=== PATIENT | male | born 1965 | race Caucasian/White ===

== ENCOUNTER 2020-06-06 18:39 | Outpatient (CLI) | payer MEDICAID ==
--- NOTE | 2020-06-06 21:27 | Ultrasound Report ---
PROCEDURE: Duplex Lwr Ext Arterial Bilat INDICATIONS: PERIPHERAL ARTERY DISEASE TECHNIQUE: Color and pulse Doppler interrogation was performed of both lower extremity arterial systems, with im age documentation. COMPARISON: None. FINDINGS: Right lower extremity: Common femoral artery: 250 cm/sec, with monophasic flow. Deep femoral artery: 44 cm/sec, with monophasic flow. Proximal superficial femoral artery: 345 cm/sec, with monophasic flow. Mid superficial femoral artery: 72 cm/sec, with monophasic flow. Distal superficial femoral artery: 49 cm/sec, with monophasic flow. Popliteal artery: 190 cm/sec, with monophasic flow. Posterior tibial artery: 11 cm/sec, with monophasic flow. Anterior tibial artery/dorsalis pedis: Not well seen. Gaming-scale imaging description: Extensive atherosclerotic plaque Left lower extremity: Status post [id number] amputation Common femoral artery: Appears occluded. Deep femoral artery not sonographically visualized Proximal superficial femoral artery not sonographically visualized IMPRESSION: Extensive atherosclerosis throughout the right lower extremity, with high-grade focal stenosis involv ing the right common femoral artery, proximal superficial femoral artery and popliteal artery. Status post left [id number] amputation. The left common femoral artery appears occluded. Reviewed by: Bola Collins MD on 06/06/2020 9:26 PM PDT Approved by: Bola Collins MD on 06/06/2020 9:26 PM PDT Station ID: [id number]
== END 2020-06-06 18:40 | disposition home or self-care (01) ==
LOC: DI 18:39 → EDBD 19:00
PROVIDERS: ATTEND Internal Medicine
DX: I70.201 Unspecified atherosclerosis of native arteries of extremities, right leg (principal); Z89.612 Acquired absence of left leg above knee
CPT/HCPCS: 93925

== ENCOUNTER 2020-06-09 08:00 | Outpatient (CLI) | payer MEDICAID ==
[2020-06-09 18:26] LABS: BASOPHILS # (AUTO) 0.1 10^3/uL (0.0-0.1); BASOPHILS % (AUTO) 0.6 %; EOSINOPHILS # (AUTO) 0.1 10^3/uL (0.0-0.7); EOSINOPHILS % (AUTO) 1.3 %; HCT - HEMATOCRIT 35.5 % (42.0-52.0); HGB - HEMOGLOBIN 10.9 g/dL (14.0-18.0); LYMPHOCYTES # (AUTO) 2.1 10^3/uL (1.5-3.5); LYMPHOCYTES % (AUTO) 20.7 %; MEAN CORPUSCULAR HEMOGLOBIN 25.8 pg (27.0-31.0); MEAN CORPUSCULAR HGB CONC 30.7 g/dL (32.0-36.0); MEAN CORPUSCULAR VOLUME 84.1 fL (80.0-94.0); MEAN PLATELET VOLUME 8.8 fL (7.4-11.4); MONOCYTES # (AUTO) 0.8 10^3/uL (0.0-1.0); MONOCYTES % (AUTO) 7.8 %; NEUTROPHILS # (AUTO) 6.9 10^3/uL (1.5-6.6); NEUTROPHILS % (AUTO) 68.7 %; PLT - PLATELET COUNT 446 10^3/uL (130-450); RED BLOOD COUNT 4.22 10^6/uL (4.70-6.10); RED CELL DISTRIBUTION WIDTH 15.3 % (12.0-15.0); WHITE BLOOD COUNT 10.1 x10^3/uL (4.8-10.8)
[2020-06-09 18:58] LABS: CREATININE,URINE 26.9 mg/dL; MICROALBUM/CREATININE RATIO,UR 11.2 ug/mg (<30.0); MICROALBUMIN,URINE 0.3 mg/dL (0-300.0)
[2020-06-09 19:07] LABS: ALBUMIN 3.4 g/dL (3.2-5.5); ALBUMIN/GLOBULIN RATIO 0.8 (1.0-2.2); ALKALINE PHOSPHATASE 44 IU/L (42-121); ALT ALANINE AMINOTRANSFERASE < 10 IU/L (10-60); AST ASPARTATE AMINOTRANSFERASE 11 IU/L (10-42); BILIRUBIN,TOTAL 0.5 mg/dL (0.2-1.0); BUN - BLOOD UREA NITROGEN 14 mg/dL (6-20); CALCIUM 9.3 mg/dL (8.5-10.3); CARBON DIOXIDE - CO2 25 mmol/L (21-32); CHLORIDE 92 mmol/L (101-111); CHOL/HDL RATIO 2.9 (<5.0); CHOLESTEROL 132 mg/dL; CREATININE 0.7 mg/dL (0.6-1.2); GFR - MDRD 116 (>89); GLUCOSE 109 mg/dL (70-100); HDL CHOLESTEROL 45 mg/dL; LDL CHOLESTEROL,CALCULATED 76 mg/dL; LDL/HDL RATIO 1.7 (<3.6); POTASSIUM 4.5 mmol/L (3.5-5.0); SODIUM 127 mmol/L (135-145); THYROID STIMULATING HORMONE 2.14 uIU/mL (0.34-5.60); TOTAL PROTEIN 7.9 g/dL (6.7-8.2); TRIGLYCERIDES 56 mg/dL; VLDL CHOLESTEROL 11 mg/dL
[2020-06-09 20:24] LABS: ESTIMATED AVERAGE GLUCOSE 126 mg/dL (70-100)
== END 2020-06-09 23:59 | disposition home or self-care (01) ==
LOC: LAB.WCP 08:00
PROVIDERS: ATTEND Internal Medicine
DX: I10 Essential (primary) hypertension (principal); I73.9 Peripheral vascular disease, unspecified; Z12.5 Encounter for screening for malignant neoplasm of prostate; R60.9 Edema, unspecified
CPT/HCPCS: 36415; 80053; 80061; 82043; 82570; 83036; 83721; 84153; 84443; 85025

== ENCOUNTER 2020-07-08 11:29 | Outpatient (CLI) | payer MEDICAID ==
[2020-07-08 18:19] LABS: ABSOLUTE RETICS # AUTO 0.083 10^6/uL (0.020-0.110); RED BLOOD COUNT 4.49 10^6/uL (4.70-6.10); RETICULOCYTE COUNT % (AUTO) 1.85 % (0.5-2.3)
[2020-07-08 18:55] LABS: % IRON SATURATION 8 % (20-50); IRON 21 ug/dL (45-182); TOTAL IRON BINDING CAPACITY 262 ug/dL (250-450); TRANSFERRIN 187 mg/dL (180-329)
== END 2020-07-08 23:59 | disposition home or self-care (01) ==
LOC: LAB.WCP 11:29
PROVIDERS: ATTEND Internal Medicine
DX: D64.9 Anemia, unspecified (principal); E87.1 Hypo-osmolality and hyponatremia
CPT/HCPCS: 36415; 82607; 82728; 83540; 83930; 83935; 84300; 84466; 85045

== ENCOUNTER 2020-09-01 16:28 | Inpatient (IN) | payer OTHER, MEDICAID ==
--- NOTE | 2020-09-01 17:10 | XRAY Report ---
PROCEDURE: Foot 3 View RT INDICATIONS: RLE swelling, infection TECHNIQUE: 3 views of the foot were acquired. COMPARISON: None FINDINGS: Bones: No acute fractures or dislocations. Moderate degenerative changes of the tibiotalar joint. N o evidence for osseous erosions or cortical destruction. No suspicious periosteal reaction. No suspic ious bony lesions. Soft tissues: No tibiotalar joint effusion. Achilles tendon appears normal. Moderate soft tissue sw elling of the right foot most pronounced in the forefoot. No evidence for soft tissue gas. IMPRESSION: Moderate soft tissue swelling of the right foot without underlying osseous erosions or periosteal roselyn ction. No acute fracture or dislocation. Moderate degenerative changes of the right tibiotalar joint. If there is persistent high clinical concern for osteomyelitis, further evaluation with MRI can be co nsidered. Reviewed by: Sami Mcintosh MD on 09/01/2020 5:09 PM PDT Approved by: Sami Mcintosh MD on 09/01/2020 5:09 PM PDT Station ID: [id number]
[2020-09-01] MEDS ORDERED: VANCOMYCIN INJ 2 GM in SODIUM CHLORIDE 0.9% 500 ML IV STA (17:11)
[2020-09-01] MEDS ORDERED: PIPERACILLIN/TAZOBACTAM 3.375 GM in SODIUM CHLORIDE 0.9% MINIBAG 100 ML IV STA (17:11)
--- NOTE | 2020-09-01 17:11 | ED Physician Documentation ---
History of Present Illness - Stated complaint Stated Complaint: RT LEG INFECTION - Chief complaint Chief Complaint: Ext Problem - History obtained from History obtained from: Patient - History of Present Illness Timing: Today Pain level max: 7 Pain level now: 5 - Additonal information Additional information: Patient is a 55-year-old male who was sent over from the wound care clinic today for infection of the right lower extremity. Concern for need for possible amputation. Patient states that his leg is painful. He denies any fevers. He states he has not had chills. Nothing makes it better or worse. He states he is not currently on antibiotics. Review of Systems Ten Systems: 10 systems reviewed and negative Constitutional: denies: Fever, Chills GI: denies: Nausea, Vomiting, Diarrhea Skin: denies: Rash Musculoskeletal: denies: Neck pain, Back pain Neurologic: denies: Headache PD PAST MEDICAL HISTORY - Past Medical History Cardiovascular: Hypertension, High cholesterol, Peripheral Vascular Disease Respiratory: Sleep apnea Endocrine/Autoimmune: None GI: Other Musculoskeletal: Chronic back pain - Past Surgical History Ortho: Amputation - Present Medications Home Medications: Ambulatory Orders Medication Instructions Recorded Confirmed Atorvastatin Calcium 1 tab ORAL DAILY PM 08/25/20 09/01/20 Losartan Potassium [Cozaar] 1 tablet PO DAILY 08/25/20 09/01/20 Qc Tumeric Complex 500 mg ORAL DAILY 08/25/20 09/01/20 Silver Sulfadiazine [Silvadene] 1 % TOP BID 08/25/20 09/01/20 cilostazoL [Cilostazol] 1 tab PO BID 08/25/20 09/01/20 Aspirin [Silvana Aspirin] 81 mg PO DAILY 09/01/20 09/01/20 Carvedilol [Coreg] 25 mg PO DAILY 09/01/20 09/01/20 Clopidogrel [Plavix] 75 mg PO DAILY PM 09/01/20 09/01/20 - Allergies Allergies/Adverse Reactions: Allergies Allergy/AdvReac Type Severity Reaction Status Date / Time No Known Drug Allergies Allergy Verified 09/01/20 16:42 PD ED PE NORMAL - Vitals Vital signs reviewed: Yes - General General: Alert and oriented X 3, No acute distress - HEENT HEENT: Moist mucous membranes - Neck Neck: Supple, no meningeal sign - Cardiac Cardiac: RRR, Strong equal pulses - Respiratory Respiratory: No respiratory distress, Clear bilaterally - Abdomen Abdomen: Soft, Non tender, Non distended - Derm Derm: Warm and dry - Extremities Extremities: Other (Left leg AKA. Right leg has a gangrenous external appearance. Foul drainage.) - Neuro Neuro: Alert and oriented X 3 - Psych Psych: Normal mood, Normal affect Results - Vitals Vitals: Vital Signs - 24 hr 09/01/20 09/01/20 16:37 18:39 Temperature 36.3 C L 36.5 C Heart Rate 93 79 Respiratory 16 16 Rate Blood Pressure 155/79 H 156/89 H O2 Saturation 100 98 Oxygen O2 Source Room air - Labs Labs: Laboratory Tests 09/01/20 09/01/20 09/01/20 17:20 17:36 17:36 WBC 15.8 H RBC 4.08 L Hgb 10.2 L Hct 31.9 L MCV 78.2 L MCH 25.0 L MCHC 32.0 RDW 15.0 Plt Count 528 H MPV 8.1 Neut # (Auto) 13.1 H Lymph # (Auto) 1.4 L Cooper # (Auto) 1.0 Eos # (Auto) 0.1 Baso # (Auto) 0.1 Absolute Nucleated RBC 0.00 Nucleated RBC % 0.0 ESR PT 15.8 H INR 1.5 H APTT 30.3 Sodium Potassium Chloride Carbon Dioxide Anion Gap BUN Creatinine Estimated GFR (MDRD) Glucose Lactic Acid Calcium Iron TIBC % Saturation Transferrin Ferritin Total Bilirubin AST ALT Alkaline Phosphatase C-Reactive Protein Total Protein Albumin Globulin Albumin/Globulin Ratio Lipase Urine Color YELLOW Urine Clarity CLEAR Urine pH 7.5 Ur Specific [place] 1.015 Urine Protein NEGATIVE Urine Glucose (UA) NEGATIVE Urine Ketones NEGATIVE Urine Occult Blood NEGATIVE Urine Nitrite NEGATIVE Urine Bilirubin NEGATIVE Urine Urobilinogen 0.2 (NORMAL) Ur Leukocyte Esterase NEGATIVE Ur Microscopic Review NOT INDICATED Urine Culture Comments NOT INDICATED 09/01/20 09/01/20 09/01/20 17:36 17:36 17:36 WBC RBC Hgb Hct MCV MCH MCHC RDW Plt Count MPV Neut # (Auto) Lymph # (Auto) Cooper # (Auto) Eos # (Auto) Baso # (Auto) Absolute Nucleated RBC Nucleated RBC % ESR 110 H PT INR APTT Sodium 121 L Potassium 3.8 Chloride 84 L Carbon Dioxide 24 Anion Gap 13.0 BUN < 5 L Creatinine 0.6 Estimated GFR (MDRD) 139 Glucose 107 H Lactic Acid 0.8 Calcium 8.4 L Iron TIBC % Saturation Transferrin Ferritin Total Bilirubin 0.5 AST 24 ALT 24 Alkaline Phosphatase 96 C-Reactive Protein 19.5 H Total Protein 7.6 Albumin 2.7 L Globulin 4.9 H Albumin/Globulin Ratio 0.6 L Lipase 53 H Urine Color Urine Clarity Urine pH Ur Specific [place] Urine Protein Urine Glucose (UA) Urine Ketones Urine Occult Blood Urine Nitrite Urine Bilirubin Urine Urobilinogen Ur Leukocyte Esterase Ur Microscopic Review Urine Culture Comments 09/01/20 09/01/20 17:36 17:36 WBC RBC Hgb Hct MCV MCH MCHC RDW Plt Count MPV Neut # (Auto) Lymph # (Auto) Cooper # (Auto) Eos # (Auto) Baso # (Auto) Absolute Nucleated RBC Nucleated RBC % ESR PT INR APTT Sodium Potassium Chloride Carbon Dioxide Anion Gap BUN Creatinine Estimated GFR (MDRD) Glucose Lactic Acid Calcium Iron 20 L TIBC 192 L % Saturation 10 L Transferrin 137 L Ferritin 255.4 Total Bilirubin AST ALT Alkaline Phosphatase C-Reactive Protein Total Protein Albumin Globulin Albumin/Globulin Ratio Lipase Urine Color Urine Clarity Urine pH Ur Specific [place] Urine Protein Urine Glucose (UA) Urine Ketones Urine Occult Blood Urine Nitrite Urine Bilirubin Urine Urobilinogen Ur Leukocyte Esterase Ur Microscopic Review Urine Culture Comments - Rads (name of study) R tib fib xray Radiology: Prelim report reviewed, EMP read contemporaneously, See rad report R foot xray Radiology: Prelim report reviewed, EMP read contemporaneously, See rad report PD MEDICAL DECISION MAKING - ED course Complexity details: reviewed results, re-evaluated patient, considered differential, d/w patient, d/w trousseau consultant ED course: 55-year-old male with what appears to be a gangrenous right leg. Started on IV antibiotics. Discussed with Dr. Flood, hospitalist who accepts. He discussed the case with orthopedics. This document was made in part using voice recognition software. While efforts are made to proofread this document, sound alike and grammatical errors may occur. IMPRESSION: Moderate soft tissue swelling of the right lower leg and right foot without evidence for soft tissue gas. Suggestion of possible cortical erosion/destruction of the plantar aspect of the distal right fifth metatarsal seen only on the lateral view. This was not appreciated on comparison radiographs of the foot from earlier today. Recommend correlation with clinical examination as this may represent possible osteomyelitis. Consider further evaluation with MRI. Moderate degenerative changes of the right tibiotalar joint. IMPRESSION: Moderate soft tissue swelling of the right foot without underlying osseous erosions or periosteal reaction. No acute fracture or dislocation. Moderate degenerative changes of the right tibiotalar joint. If there is persistent high clinical concern for osteomyelitis, further evaluation with MRI can be considered. Departure - Departure Disposition: [facility] DC/Xfer Clinical Impression: Gangrene of right lower extremity due to atherosclerosis Cellulitis Qualifiers: Site of cellulitis: unspecified site Qualified Code(s): L03.90 - Cellulitis, unspecified Condition: Stable Discharge Date/Time: 09/01/20 19:42
--- NOTE | 2020-09-01 17:14 | XRAY Report ---
PROCEDURE: Tib/Fib RT INDICATIONS: RLE swelling, infection TECHNIQUE: 2 views of the tibia and fibula were acquired. COMPARISON: Right foot radiographic series from same day FINDINGS: Bones: Moderate soft tissue swelling of the right lower leg. Moderate degenerative changes of the ti biotalar joint. On the lateral view only, there is suggestion of cortical erosion or destruction invo lving the plantar aspect of the distal right fifth metatarsal. This was not appreciated on comparison radiograph. Otherwise, no acute fractures or dislocations. No suspicious bony lesions. Soft tissues: No suspicious soft tissue calcifications or masses. Moderate soft tissue swelling of t ced right foot and right lower leg. No evidence for soft tissue gas. IMPRESSION: Moderate soft tissue swelling of the right lower leg and right foot without evidence for soft tissue gas. Suggestion of possible cortical erosion/destruction of the plantar aspect of the distal right fi fth metatarsal seen only on the lateral view. This was not appreciated on comparison radiographs of heather coughlin foot from earlier today. Recommend correlation with clinical examination as this may represent pos sible osteomyelitis. Consider further evaluation with MRI. Moderate degenerative changes of the right tibiotalar joint. Reviewed by: Sami Mcintosh MD on 09/01/2020 5:12 PM PDT Approved by: Sami Mcintosh MD on 09/01/2020 5:12 PM PDT Station ID: [id number]
[2020-09-01 17:30] LABS: BILIRUBIN,URINE NEGATIVE (NEGATIVE); GLUCOSE, URINE (UA) NEGATIVE (NEGATIVE); KETONES,URINE (UA) NEGATIVE (NEGATIVE); LEUKOCYTE ESTERASE, URINE NEGATIVE (NEGATIVE); NITRITE,URINE NEGATIVE (NEGATIVE); OCCULT BLOOD,URINE NEGATIVE (NEGATIVE); PH,URINE 7.5 PH (5.0-7.5); PROTEIN,URINE NEGATIVE (NEGATIVE); UROBILINOGEN,URINE 0.2 (NORMAL) E.U./dL (NORMAL)
[2020-09-01 17:34] LABS: CLARITY,URINE CLEAR (CLEAR)
[2020-09-01 17:48] LABS: BASOPHILS # (AUTO) 0.1 10^3/uL (0.0-0.1); BASOPHILS % (AUTO) 0.3 %; EOSINOPHILS # (AUTO) 0.1 10^3/uL (0.0-0.7); EOSINOPHILS % (AUTO) 0.3 %; HCT - HEMATOCRIT 31.9 % (42.0-52.0); HGB - HEMOGLOBIN 10.2 g/dL (14.0-18.0); LYMPHOCYTES # (AUTO) 1.4 10^3/uL (1.5-3.5); MEAN CORPUSCULAR VOLUME 78.2 fL (80.0-94.0); MEAN PLATELET VOLUME 8.1 fL (7.4-11.4); MONOCYTES % (AUTO) 6.4 %; NEUTROPHILS # (AUTO) 13.1 10^3/uL (1.5-6.6); NEUTROPHILS % (AUTO) 82.9 %; PLT - PLATELET COUNT 528 10^3/uL (130-450); RED BLOOD COUNT 4.08 10^6/uL (4.70-6.10); WHITE BLOOD COUNT 15.8 x10^3/uL (4.8-10.8)
[2020-09-01 17:52] LABS: INR 1.5 (0.8-1.2); PT - PROTHROMBIN TIME 15.8 secs (9.9-12.6)
[2020-09-01 17:59] LABS: PARTIAL THROMBOPLASTIN TIME 30.3 secs (24.9-33.3)
[2020-09-01 18:06] LABS: ALBUMIN 2.7 g/dL (3.2-5.5); ALBUMIN/GLOBULIN RATIO 0.6 (1.0-2.2); ALKALINE PHOSPHATASE 96 IU/L (42-121); ALT ALANINE AMINOTRANSFERASE 24 IU/L (10-60); AST ASPARTATE AMINOTRANSFERASE 24 IU/L (10-42); BILIRUBIN,TOTAL 0.5 mg/dL (0.2-1.0); BUN - BLOOD UREA NITROGEN < 5 mg/dL (6-20); CALCIUM 8.4 mg/dL (8.5-10.3); CARBON DIOXIDE - CO2 24 mmol/L (21-32); CHLORIDE 84 mmol/L (101-111); CREATININE 0.6 mg/dL (0.6-1.2); CRP - C-REACTIVE PROTEIN 19.5 mg/dL (0-1.0); GFR - MDRD 139 (>89); GLUCOSE 107 mg/dL (70-100); LIPASE 53 U/L (22-51); POTASSIUM 3.8 mmol/L (3.5-5.0); SODIUM 121 mmol/L (135-145); TOTAL PROTEIN 7.6 g/dL (6.7-8.2)
[2020-09-01] MEDS ORDERED: ONDANSETRON ODT 4 MG TABLET TL PRN (18:51)
[2020-09-01] MEDS ORDERED: ONDANSETRON 4 MG/2 ML VIAL IVP PRN (18:51)
--- NOTE | 2020-09-01 19:47 | CONSULTATION NOTE ---
Referring Provider Name of Referring Provider:: Dr. Aleena Vazquez Consult Date: 09/01/20 History of Present Illness - Admitted From Admitted From:: emergency room - History Obtained From Records Reviewed: yes History obtained from: patient Exam Limitations: none - History of Present Illness HPI Comment/Other: This is a 55-year-old gentleman with a 40-year pack cigarette smoking history who underwent a left above-knee amputation little over a year ago at [facility]. He has had problems healing his left above-knee amputation stump and has never been a prosthetic user. He has been nonambulatory in wheelchair since his left above-knee amputation. Over the past several weeks he has developed progressive problems with his right lower leg. He is seen vascular surgeons and has not been felt to be a candidate for revascularization. He has been undergoing wound care without success and has had gangrene to the right lower extremity. He is being admitted now because of the gangrene and some symptoms of infection developing to the right lower extremity. He is not a diabetic, denies heart attack, stroke or pulmonary embolism. He denies cancer. He lives at home with and is wheelchair-bound. He has continued wound healing problems to his left above-knee amputation stump. He denies fever or chills, chest pain or shortness of breath. History - Past Medical History Cardiovascular: reports: Hypertension, High cholesterol, Peripheral Vascular Disease Respiratory: reports: Sleep apnea Endocrine/Autoimmune: reports: None GI: reports: Other Musculoskeletal: reports: Chronic back pain - Past Surgical History Ortho: reports: Amputation - Family & Social History Living Situation: With spouse/s.o. Social History Notes: hx of tobacco and alcohol use disorders, currently abstinent - Substance History Use: Uses substance without health or social issues: Cannabis Meds/Allgy - Home Medications Home Medications: Ambulatory Orders Medication Instructions Recorded Confirmed Atorvastatin Calcium 1 tab ORAL DAILY PM 08/25/20 09/01/20 Losartan Potassium [Cozaar] 1 tablet PO DAILY 08/25/20 09/01/20 Qc Tumeric Complex 500 mg ORAL DAILY 08/25/20 09/01/20 Silver Sulfadiazine [Silvadene] 1 % TOP BID 08/25/20 09/01/20 cilostazoL [Cilostazol] 1 tab PO BID 08/25/20 09/01/20 Aspirin [[place]ena Aspirin] 81 mg PO DAILY 09/01/20 09/01/20 Carvedilol [Coreg] 25 mg PO DAILY 09/01/20 09/01/20 Clopidogrel [Plavix] 75 mg PO DAILY PM 09/01/20 09/01/20 - Allergies Allergies/Adverse Reactions: Allergies Allergy/AdvReac Type Severity Reaction Status Date / Time No Known Drug Allergies Allergy Verified 09/01/20 16:42 Exam - Vital Signs Vital Signs: Vital Signs x48h Temp Pulse Resp BP Pulse Ox 09/01/20 18:39 36.5 C 79 16 156/89 H 98 09/01/20 16:37 36.3 C L 93 16 155/79 H 100 - Physical Exam General Appearance: positive: No acute distress. negative: Other (Appears older than stated age) Peripheral Pulses: negative: Other (Unable to obtain pulses right foot, ankle and markedly diminished pulses popliteal at best) Extremities: positive: Other. negative: Joint swelling (He has a 20 degree flexion contracture right knee) Conclusion and Plan - Lab Results Laboratory Results 09/01/20 17:36: ESR 110 H 09/01/20 17:36: Lactic Acid 0.8 09/01/20 17:36: Sodium 121 L, Potassium 3.8, Chloride 84 L, Carbon Dioxide 24, Anion Gap 13.0, BUN < 5 L, Creatinine 0.6, Estimated GFR (MDRD) 139, Glucose 107 H, Calcium 8.4 L, Total Bilirubin 0.5, AST 24, ALT 24, Alkaline Phosphatase 96, C-Reactive Protein 19.5 H, Total Protein 7.6, Albumin 2.7 L, Globulin 4.9 H, Albumin/Globulin Ratio 0.6 L, Lipase 53 H 09/01/20 17:36: PT 15.8 H, INR 1.5 H, APTT 30.3 09/01/20 17:36: WBC 15.8 H, RBC 4.08 L, Hgb 10.2 L, Hct 31.9 L, MCV 78.2 L, MCH 25.0 L, MCHC 32.0, RDW 15.0, Plt Count 528 H, MPV 8.1, Neut # (Auto) 13.1 H, Lymph # (Auto) 1.4 L, Armstrong # (Auto) 1.0, Eos # (Auto) 0.1, Baso # (Auto) 0.1, Absolute Nucleated RBC 0.00, Nucleated RBC % 0.0 09/01/20 17:20: Urine Color YELLOW, Urine Clarity CLEAR, Urine pH 7.5, Ur Specific [place] 1.015, Urine Protein NEGATIVE, Urine Glucose (UA) NEGATIVE, Urine Ketones NEGATIVE, Urine Occult Blood NEGATIVE, Urine Nitrite NEGATIVE, Urine Bilirubin NEGATIVE, Urine Urobilinogen 0.2 (NORMAL), Ur Leukocyte Esterase NEGATIVE, Ur Microscopic Review NOT INDICATED, Urine Culture Comments NOT INDICATED - Diagnostic Imaging Results Diagnostic Imaging Results: negative: Read independently (Routine radiographs of the right leg do not show a definite bone or joint abnormality.), Other (Arterial duplex from 06/06/2020 shows extensive occlusive disease throughout the right lower extremity including common femoral, superficial femoral and popliteal artery.) - Diagnosis Diagnosis: 1. Gangrene right lower extremity. 2. Severe peripheral vascular d isease. 3. Status post left above-knee amputation with chronic ulceration of skin to stump. 4. Chronic anemia, hyponatremia, likely poor nutrition - Plan Plan: He needs to be evaluated by her medical record technician. He has a severe problem and will likely require above-knee amputation. He is a nonambulator, has a flexion contracture to right knee and has severe arterial vascular occlusive disease. He has had vascular surgery consultation and wound care; all efforts for right lower leg salvage have failed and now he has severe gangrene to the right lower extremity. His comorbidities and prognosis is poor; mortality rate high over the next 2 years. He will not be able to be an ambulator and will be wheelchair-bound if he has his amputation as anticipated, right above-knee amputation. He is in agreement to this plan at this time.
[2020-09-01 19:51] LABS: % IRON SATURATION 10 % (20-50); IRON 20 ug/dL (45-182); TOTAL IRON BINDING CAPACITY 192 ug/dL (250-450); TRANSFERRIN 137 mg/dL (180-329)
--- NOTE | 2020-09-01 19:55 | HISTORY & PHYSICAL EXAMINATION ---
Chief Complaint - Chief Complaint Chief Complaint: gangrenous right leg in [facility] History of Present Illness - Admitted From Admitted From:: Home via [facility] - History Obtained From Records Reviewed: [facility] History obtained from: Dr. Flood and patient Exam Limitations: patient's memory - History of Present Illness HPI Comment/Other: This unfortunate gentleman has a history of peripheral vascular disease and has already undergone an [id number] amputation on the left leg in April 2019. In review of his records, he had already developed chronic lymphedema of the legs by 2009 complicated by venous stasis and chronic leg ulcers. And then he had a superficial temporary right foot wound when he was moving a refrigerator and dropped it on his foot. He was then lost to follow-up with his primary care provider locally between 2009 and 2018 when he returned back to the [facility]. In 2018 he returned on March 12 with a painful, swollen left ryder/calf of 2 weeks duration and had already been seen at [facility] with admit and discharge by March 09 after admit February 26. He had been moving furniture and he struck his ryder on a piece of furniture and subsequently developed large blisters with redness and pain. With that examination that day the foot was gangrenous. Cultures without stay were positive for MSSA and Enterococcus faecalis.He underwent arterial Dopplers, venous Dopplers. Aortogram was done and he had stenosis of both femorals with a stent placement within the left mid superficial femoral artery March 10, 2019. He had stenosis of the SFA on the left. No signs of osteomyelitis in the bone of his foot or tibia. He was seen by director of housing and energy services Quyen Quispe at [facility]. Revascularization attempt was recommended. During that stay, he was found to have history of pa ncreatitis due to alcohol abuse. And also had a pancreatic head mass that they were trying to get evaluated at the same time they were trying to take care of his vascular disease of his leg.He had severe leg pain. At the [place] [facility] he been treated with oxycodone, morphine, and he was requesting fentanyl. His primary care provider was attempting to establish him with a chronic pain clinic for that pain management. Unfortunately he had difficulty accessing health care because of the multiple authorizations required between [facility] and the [place] system. He developed gangrene and osteomyelitis of the third and fourth toe and underwent a transmetatarsal amputation and a left anterior leg debridement April 17. Cultures were positive for MSSA. He was discharged April 27 and was on antibiotics for 13 days. Then discharged on Augmentin and a wound VAC placed. However he continued to progress with his infection. He was resent back to the emergency room at [facility] May 04 because his director of housing and energy services felt that his infection was out of control.He was admitted and eventually underwent an AKA on May 07. He was continued on Flagyl and that was stopped May 14. He was on IV cefazolin until discharge and switched to oral Ceftin which was stopped May 20. Postoperatively he has been relatively sedentary. The stump has not healed. He has been unable to be fitted for an orthotic due to inability to get appt and transportation issues. Somewhere in May he hit his right ryder against a box when he was using his wheelchair to turn around in the room. He developed persistent right ryder wound. He has been referred to the wound clinic in May but by June still had not been able to get an appointment because he could not access the schedulers. He did have an appointment with vascular surgery in [facility] in the first part of July to be reassessed for his vascular disease. He had follow-up ultrasound duplex arterial of the lower extremities and it showed that his regions where his prior stenting was done were failing. He was seen by Dr. Benitez Who recommended a right AKA. But the patient did not wish to have another amputation. He was seen in our wound clinic on August 25. His ischemic ulcer was debrided. Dressed. And asked to return in a week. He returned today. His wound has markedly worsened. Photos are in the EMR to document the spread of gangrene. He was sent to the emergency room for evaluation and he has an infection, surrounding cellulitis, but no sepsis. He was seen by orthopedics. The extent of the wound is so severe that the patient is now a candidate for another [id number] amputation on the right leg at this time. From a cardiovascular perspective he has no history of AL, congestive heart failure. He was a former smoker, current hyperlipidemic. No history of diabetes. He is hypertensive. He is a relatively sedentary person so there is no ability to assess any change in cardiovascular endurance from him. He denies chest pain, palpitations, orthopnea. He denies having any lung or heart problems. He wakes up several times a night but can't say why, Exhausted for the last year. Cough is new today, nonproductive and feels like there is phlegm there that can't come up. He has been seen by Dr. Liu, orthopedics. The patient currently has hyponatremia, cellulitis/infection of the leg. He would like preoperative improvement of the patient's status before taking him to the OR.The hyponatremia is not new. When he was hospitalized at [facility] in February, the hyponatremia have been present for a year and was related to have been between 126-132. He is a previous alcohol abuser. Has been clean and sober for approximately 5 years but then he says 10 years. .He stopped smoking somewhere in March of this year. He denies cirrhosis but states he has fatty liver. History - Past Medical History Cardiovascular: reports: Hypertension, High cholesterol, Peripheral Vascular Disease (High-grade left external iliac stenosis resolved after stent placement and angioplasty. High-grade stenosis left common and proximal superficial femoral artery following angioplasty. High-grade multifocal right-sided outflow stenosis. Patient on Plavix.), Other (Chronic hyponatremia last year of 126- 132. No history of cirrhosis in spite of alcohol abuse. No history of congestive heart failure. Serum osmolality was done at [facility] with amputation admission. Unknown results. Recent osm 265 07/08/20.) Respiratory: reports: Sleep apnea (Diagnosed approximately 1997, prescribed a CPAP but never followed through. He refuses) Neuro: reports: Head injury (2000 Hit on left forehead with a heavy crab pot, started bleeding, no loss of consciousness. Started vomiting. Did not seek medical attention. Vomited off and on for a month. Thinking has been fuzzy since that injury. Subsequent cognitive and behavioral changes.), Headaches (Since childhood. Headaches changed after TBI. Also has history of tension he adaches. Desipramine previously helped.) Endocrine/Autoimmune: reports: Other (Low Vitamin D) GI: reports: Pancreatitis (Pancreatic head mass since 2016 at the [place]. Between 2016 and 2019, pancreatic duct dilatation developing, CA 19 9 level normal but highly suspicious for pancreatic carcinoma. To have endoscopic ultrasound and fine-needle aspiration biopsy but he has decided not to), Other (Abnormal liver enzymes. Hepatitis panel negative in 2001.) HEENT: reports: Chronic vision loss Psych: reports: Depression (Or dysthymia.Has been tried on imipramine, desipramine, fluoxetine, paroxetine, citalopram, bupropion. Stopped after head injury. 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 Thoracic compression fracture. Was on low-dose morphine off and on.) MRSA Hx?: No - Past Surgical History Ortho: reports: Amputation Cardiovascular: reports: Angioplasty HEENT: reports: Other (Infected teeth with extractions) - Family & Social History Family History Comment/Other: Mother: HTN, CVA in 70s. Father: healthy. Half siblings: one sister w kidney stones. Daughter w spina bifida and one lung. Smoker, substance abuser?, had pneumonia and refused trach. Left AMA and at home. Son is healthy and lives in [facility] [place] Living arrangement: At home Living Situation: With spouse/s.o. Social History Notes: hx of tobacco and alcohol use disorders, currently abstinent. Started smoking in 1977 and smoked 1 pack/day. Quit 03/2020. 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 [place] since leaving the [employer] 1995. and lives in [place]. Had 2 children but daughter last year and now has 13 yr old granddaughter living with them - Substance History Use: Uses substance without health or social issues: Cannabis Abuse: Recurrent use of substance despite neg consequences: NONE - POLST Patient has POLST: No POLST Status: Full Code Meds/Allgy - Home Medications Home Medications: Ambulatory Orders Medication Instructions Recorded Confirmed Atorvastatin Calcium 1 tab ORAL DAILY PM 08/25/20 09/01/20 Losartan Potassium [Cozaar] 1 tablet PO DAILY 08/25/20 09/01/20 Qc Tumeric Complex 500 mg ORAL DAILY 08/25/20 09/01/20 Silver Sulfadiazine [Silvadene] 1 % TOP BID 08/25/20 09/01/20 cilostazoL [Cilostazol] 1 tab PO BID 08/25/20 09/01/20 Aspirin [[place] Aspirin] 81 mg PO DAILY 09/01/20 09/01/20 Carvedilol [Coreg] 25 mg PO DAILY 09/01/20 09/01/20 Clopidogrel [Plavix] 75 mg PO DAILY PM 09/01/20 09/01/20 - Allergies Allergies/Adverse Reactions: Allergies Allergy/AdvReac Type Severity Reaction Status Date / Time No Known Drug Allergies Allergy Verified 09/01/20 16:42 Review of Systems - Constitutional Constitutional: reports: Fatigue, Night sweats (since ~1990). denies: Fever, Chills - Eyes Eyes: reports: Blurred vision. denies: Pain, Irritation, Amaurosis - Ears, Nose & Throat Ears, Nose & Throat: reports: Tinnitus, Nasal congestion. denies: Ear pain, Hearing loss, Hearing aids, Vertigo, Nosebleeds, Nasal obstruction, Sore throat, Hoarseness - Cardiovascular Cariovascular: reports: Chest pain (w exertion for years and years but since he's sedentary now, no cp), Edema (of legs for years. current right leg very large and tense). denies: Irregular heart rate, Palpitations, Lightheadedness, Syncope - Respiratory Respiratory: reports: Cough (today), Snoring, Apnea. denies: Sputum production, Wheezing - Gastrointestinal Gastrointestinal: reports: Constipation (new for the last year), Bloating. denies: Abdominal pain, Abdominal distention, Diarrhea, Black stools, Bloody stools, Nausea, Vomiting, Reflux/heartburn - Genitourinary Genitourinary: reports: Nocturia (x3). denies: Dysuria, Frequency, Urgency, Hematuria, Incontinence - Musculoskeletal Musculoskeletal: reports: Back pain, Muscle aches, Other (he is amazed his right leg isn't hurting more). denies: Muscle pain, Joint pain - Integumentary Integumentary: reports: Rash (on right leg that is black and spreading). denies: Pruritis, Lesions, Dryness - Neurological Neurological: reports: General weakness, Headache, Numbness (both hands off and on), Memory problems (with chronic microvascular ischemia on MRIs in the past, worse w TBI). denies: Focal weakness, Dizziness - Psychiatric Psychiatric: reports: Depression. denies: Anxiety, Suicidal, Delusions, Hallucinations - Endocrine Endocrine: reports: Intolerance to cold. denies: Polyuria, Polydypsia, Polyphagia - Hematologic/Lymphatic Hematologic/Lymphatic: reports: Anemia, Bruising. denies: Petechiae, Blood clots, Lymphadenopathy Prior Level of Functionality: Cognitive deficits this is a head injury in 2000. Short-term memory problems. Independent with ADLs and finances until his AKA. Now more wheelchair-bound or bedbound. Exam - Vital Signs Reviewed Vital Signs: Yes Vital Signs: Vital Signs x48h Temp Pulse Resp BP Pulse Ox 09/01/20 18:39 36.5 C 79 16 156/89 H 98 09/01/20 16:37 36.3 C L 93 16 155/79 H 100 - Physical Exam General Appearance: positive: No acute distress, Alert, Other (Very pale/grayish discoloration of face, long hair, very uncomfortable. Sitting upright in chair because uncomfortable in bed) Eyes Bilateral: positive: PERRL, EOMI ENT: positive: No signs of dehydration, Other (poor poor dentition) Neck: positive: No JVD, Lymphadenopathy (R), Lymphadenopathy (L). negative: Stiff neck Respiratory: positive: No respiratory distress. negative: Wheezes, Rales, Rhonchi Cardiovascular: positive: Regular rate & rhythm, Systolic murmur. negative: Gallop/S4, Friction rub Peripheral Pulses: positive: 0 Abdomen: positive: Non-tender, No organomegaly, Nml bowel sounds, No distention Skin: positive: Pallor, Other (right leg pictures show black skin, oozing from just below knee to feet and toes gangrenous) Extremities: positive: Other (infection of right leg, edema 3+ from thigh down. 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 Plan: Ortho consult AKA planned for 09/05 after his sodium and infection stabilized. Zosyn given in the ER and he has been started on cefepime and vancomycin. pain management Start process of PT and assessing where is placement will be after the surgery. He thinks he has the UE strength to return to home (2) PAD (peripheral artery disease) Conclusion/Plan: will need to get records from Vascular surgeon at [facility] to see what interventions offered. In any case he is to get AKA. Since his previous right stump isn't healed concerned about healing. Will hold of on plavix and change to lovenox to bridge until the night before surgery (3) Hyponatremia Conclusion/Plan: Urine osmolality on July 08 was 211 (range [id number]). Serum osmolality was 265 (low). (4) Chronic pain Conclusion/Plan: With history of opioid tolerance, misuse through the [place] system. This current outpatient clinic has not been providing him with opioids. Has referred him to an outpatient pain clinic but has not been able to follow through. His current medication list does not list any chronic pain meds. He states that methadone makes him more depressed. Plan: He is about to undergo an amputation, and he will need intermittent pain meds. Would recommend scheduled dose of Tylenol in the postoperative setting. Also scheduled dose of nonsteroidal in the postoperative setting. And scheduled dose of oxycodone at least for 48 hours to get him through the immediate pain. Also give stool softeners on a regular basis to avoid constipation. Qualifiers: Chronic pain type: chronic pain syndrome Qualified Code(s): G89.4 - Chronic pain syndrome (5) HTN (hypertension) Conclusion/Plan: rsume coreg and losartan Qualifiers: Hypertension type: essential hypertension Qualified Code(s): I10 - Essential (primary) hypertension (6) KATHY (obstructive sleep apnea) Conclusion/Plan: Dating back for many years now. It is untreated. Anesthesia will need to know this preoperatively. 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 Patient seems not to recollect that this is a problem. Obviously, the urgency of his gangrenous leg has taken precedence over the work-up for this pancreatic mass. Plan: Repeat CA 19-9 I reiterated need for outpatient follow-up with endoscopic fine-needle aspiration of a pancreatic head mass with interventional radiology. he says he has decided not to follow thru. He feels his risk of cancer is not as great as has been presented to him and he will not get surgery or treatment if he does have cancer. (8) Iron deficiency anemia secondary to inadequate dietary iron intake Conclusion/Plan: This patient seems to have poor protoplasm. Not taking very good care of himself unfortunately. Some of his iron deficiency may be due to to his pancreatic tumor but there is no history of GI blood losses. Plan: We would be giving the patient intravenous iron for at least 1 dose. However our pharmacy department would prefer we not give IV iron on the inpatient side Due to cost and reimbursement. We will start him on oral iron and a multivitamin (9) Preop cardiovascular exam Conclusion/Plan: This gentleman has untreated sleep apnea, iron deficiency anemia most likely to chronic disease and lack of appropriate p.o. intake, severe peripheral vascular disease (although no symptoms of CAD, I would suspect coronary arterial sclerosis to be present). With surgical risk calculator his risk of serious complication is 21.5%. Any complication is 22.8%. Risk of pneumonia is 4%. Expectation that he would be discharged to a nursing or rehab facility is 58.2%. Per elected length of hospital stay is about 7.5 days. Preoperative EKG shows normal sinus rhythm. Hinkley positive at [address]-T wave changes. Bigeminy/PVCs once. Normal R wave progression. In the postoperative recovery phase, watch closely for his sleep apnea. Will recommend daily troponins for routine follow-up. If this gentleman suddenly becomes hypotensive we will check EKG and stat troponins. Continue him on anticoagulation with Lovenox. Make sure he gets excellent pulmonary hygiene with incentive spirometry to reduce his risk of pneumonia. Have physical therapy see him in the first 2 to 3 days to then determine for placement would be. He thinks he is going to go home, I suspect he may need rehab. - Lab Results Lab results reviewed: Yes Fish Bones: 09/01/20 17:36 09/01/20 17:36 - Diagnostic Imaging Results Diagnostic Imaging Results: positive: Final report reviewed Diagnostic Imaging Results Comments: Lower extremity foot x-ray with moderate soft tissue swelling at the right foot without underlying serous osseous erosions or periosteal reaction. Lower extremity x-ray with moderate soft tissue swelling of the right lower leg and right foot without evidence for soft tissue gas. There is suggestion of possible cortical erosion/destruction of the plantar aspect of the distal right fifth metatarsal seen only on the lateral view. Moderate degenerative changes of the right tibiotalar joint. - EKG Results EKG Interpreted Independently: No EKG Comparison: No prior EKG Core Measures - Anticipated LOS I expect patient to be DC'd or transferred within 96 hours.: Yes - DVT/VTE - Prophylaxis VTE/DVT Device ordered at admit?: Yes
[2020-09-01 20:20] LABS: B. PARAPERTUSSIS- RESP PCR PAN NOT DETECTED; B. PERTUSSIS- RESP PCR PANEL NOT DETECTED; C. PNEUMONIAE- RESP PCR PANEL NOT DETECTED; CORONAVIRUS 229E-RESP PCR NOT DETECTED; CORONAVIRUS HKU1-RESP PCR NOT DETECTED; CORONAVIRUS NL63-RESP PCR NOT DETECTED; CORONAVIRUS OC43-RESP PCR NOT DETECTED; HUMAN METAPNEUMOVIRUS NOT DETECTED; INFLUENZA A- RESP PCR PANEL NOT DETECTED; INFLUENZA B - RESP PCR PANEL NOT DETECTED; M. PNEUMONIAE- RESP PCR PANEL NOT DETECTED; PARAINFLUENZA VIRUS 1 NOT DETECTED; PARAINFLUENZA VIRUS 2 NOT DETECTED; PARAINFLUENZA VIRUS 3 NOT DETECTED; PARAINFLUENZA VIRUS 4 NOT DETECTED; RHINOVIRUS/ENTEROVIRUS NOT DETECTED; RSV- RESP PCR PANEL NOT DETECTED; SARS-CoV-2 -RESP PCR PANEL NOT DETECTED
[2020-09-01] MEDS: SODIUM CHLORIDE 0.9% 1,000 ML IV SCH (21:28)
[2020-09-01] MEDS: CEFEPIME 2 GM in SODIUM CHLORIDE 0.9% MINIBAG 100 ML IV SCH (21:28)
[2020-09-01] MEDS: oxyCODONE 5 MG TABLET PO PRN (21:31)
[2020-09-01] MEDS: carvediloL 12.5 MG TABLET PO SCH (21:31)
[2020-09-02] MEDS: SODIUM CHLORIDE FLUSH 0.9% 10 ML SYRINGE IVP SCH ×3 (00:46→16:31)
[2020-09-02] MEDS: oxyCODONE 5 MG TABLET PO PRN ×6 (01:39→21:05)
[2020-09-02] MEDS ORDERED: VANCOMYCIN INJ 1.5 GM in SODIUM CHLORIDE 0.9% 500 ML IV SCH (05:00)
[2020-09-02 05:01] LABS: BASOPHILS # (AUTO) 0.1 10^3/uL (0.0-0.1); BASOPHILS % (AUTO) 0.4 %; EOSINOPHILS # (AUTO) 0.1 10^3/uL (0.0-0.7); EOSINOPHILS % (AUTO) 0.6 %; HCT - HEMATOCRIT 29.6 % (42.0-52.0); HGB - HEMOGLOBIN 9.3 g/dL (14.0-18.0); LYMPHOCYTES # (AUTO) 1.3 10^3/uL (1.5-3.5); LYMPHOCYTES % (AUTO) 11.5 %; MEAN CORPUSCULAR HEMOGLOBIN 24.7 pg (27.0-31.0); MEAN CORPUSCULAR HGB CONC 31.4 g/dL (32.0-36.0); MEAN CORPUSCULAR VOLUME 78.5 fL (80.0-94.0); MEAN PLATELET VOLUME 8.4 fL (7.4-11.4); NEUTROPHILS # (AUTO) 8.6 10^3/uL (1.5-6.6); NEUTROPHILS % (AUTO) 77.2 %; PLT - PLATELET COUNT 455 10^3/uL (130-450); RED BLOOD COUNT 3.77 10^6/uL (4.70-6.10); RED CELL DISTRIBUTION WIDTH 15.2 % (12.0-15.0); WHITE BLOOD COUNT 11.2 x10^3/uL (4.8-10.8)
[2020-09-02 05:15] LABS: CALCIUM 8.3 mg/dL (8.5-10.3); CREATININE 0.6 mg/dL (0.6-1.2); MAGNESIUM 2.1 mg/dL (1.7-2.8); PHOSPHORUS 3.5 mg/dL (2.5-4.6); POTASSIUM 3.7 mmol/L (3.5-5.0)
--- NOTE | 2020-09-02 08:32 | PHARMACY PROGRESS NOTE ---
- Best Possible Medication History Admit Date and Time: 09/01/20 185 Processed by: Pharmacy Medication History completed: Yes Patient Interview: Completed Secondary Source(s): Pharmacy records, Insurance records As the person ultimately responsible for medication therapy, providers are able to order a medication from an existing home medication list in [facility] via the "Reconcile Routine" prior to Confirmation of that medication by client support consultant. Such practice is discouraged except when the physician, in their clinical judgment, deems that a medical need exists for a medication without regard to previous use.
[2020-09-02] MEDS: MULTIVITAMIN W/MINERALS TABLET PO SCH (08:46)
[2020-09-02] MEDS: carvediloL 12.5 MG TABLET PO SCH ×2 (08:46→20:38)
[2020-09-02] MEDS: LOSARTAN 50 MG TABLET PO SCH (08:46)
[2020-09-02] MEDS: ENOXAPARIN 40 MG/0.4 ML SYRINGE SUBQ SCH (08:47)
[2020-09-02] MEDS: SACCHAROMYCES BOULARDII 250 MG CAPSULE PO SCH ×2 (08:47→16:30)
[2020-09-02] MEDS: FERROUS GLUCONATE 324 MG TABLET PO SCH (08:47)
[2020-09-02] MEDS: CEFEPIME 2 GM in SODIUM CHLORIDE 0.9% MINIBAG 100 ML IV SCH ×2 (08:48→20:39)
[2020-09-02] MEDS: ZINC OXIDE 20% OINT 30 GM TUBE TOP PRN (08:53)
[2020-09-02] MEDS: ACETAMINOPHEN 325 MG TABLET PO PRN (08:54)
--- NOTE | 2020-09-02 10:50 | PROVIDER PROGRESS NOTE ---
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 pt has no fever. blood culture is pending. it seems pt responsive to IV antibiotics as far. consulted with orthopedics. since pt failed wound debridgment, stents and worsening PAD, continue cigarette smoking until 2020, orthopedics plan to discuss with pt and have amputation procedure for pt after his sodium and infection stabilized. continue Vancomycin, Cefepime, IVF, pain control, lab and vital monitor consult with social work nurse for safely disposition. (2) PAD (peripheral artery disease) Conclusion/Plan: pt has hx of severe PAD, he had left leg amputation. called [employer] [facility] to get records from Vascular surgeon at [facility] to see what interventions offered. Now right leg infection was not control, failed out-pt care. orthopedics was consulted and plan to have procedure for pt. we Will hold of on plavix and change to lovenox to bridge until the night before surgery (3) Hyponatremia Conclusion/Plan: Improved. Na is 123 today. pt has hx of hyponatremia, likely hypovolumia hyponatremia. continue IV of NS, continue lab monitor (4) Chronic pain With history of opioid tolerance, misuse through the [place] system. we will precaution let pt have pain control and at the same to prevention of opiates dependent. (5) HTN (hypertension) stable, contiue coreg and losartan (6) KATHY (obstructive sleep apnea) Conclusion/Plan: pt was untreated in the before. pt may followup with cna ltc to have sleep study. 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 Obviously, the urgency of his gangrenous leg has taken precedence over the work-up for this pancreatic mass. advise pt followup with PCP and consult with oncologist as out-pt, check CA 19-9 tumor marker. (8) Iron deficiency anemia secondary to inadequate dietary iron intake iron study show iron deficiency, order iron pill, multiple vitamin pill, followup with PCP continue management. continue lab monitor in hospital consult with school photographs detailer (9) Preop cardiovascular exam agree the preop assessment by Dr. Hayes's assessment as the below. ECHO is pending now. "This gentleman has untreated sleep apnea, iron deficiency anemia most likely to chronic disease and lack of appropriate p.o. intake, severe peripheral vascular disease (although no symptoms of CAD, I would suspect coronary arterial sclerosis to be present). With surgical risk calculator his risk of serious complication is 21.5%. Any complication is 22.8%. Risk of pneumonia is 4%. Expectation that he would be discharged to a nursing or rehab facility is 58.2%. Per elected length of hospital stay is about 7.5 days. Preoperative EKG shows normal sinus rhythm. [place] positive at [address]-T wave changes. [place]/PVCs once. Normal R wave progression. In the postoperative recovery phase, watch closely for his sleep apnea. Will recommend daily troponins for routine follow-up. If this gentleman suddenly becomes hypotensive we will check EKG and stat troponins. Continue him on anticoagulation with Lovenox. Make sure he gets excellent pulmonary hygiene with incentive spirometry to reduce his risk of pneumonia. Have physical therapy see him in the first 2 to 3 days to then determine for placement would be. He thinks he is going to go home, I suspect he may need rehab." - Current Meds Current Meds: Current Medications Generic Name Dose Route Start Last Admin Trade Name Freq PRN Reason Stop Dose Admin Acetaminophen 650 mg 09/01/20 18:51 09/02/20 08:54 Acetaminophen 325 Mg Tablet PO 650 mg Q4HR PRN Administration Pain 1 to 4 Carvedilol 25 mg 09/01/20 21:00 09/02/20 08:46 Carvedilol 12.5 Mg Tablet PO 25 mg BID ASH Administration Enoxaparin Sodium 40 mg 09/02/20 09:00 09/02/20 08:47 Enoxaparin 40 Mg/0.4 Ml Syringe SUBQ 40 mg DAILY ASH Administration Ferrous Gluconate 324 mg 09/02/20 08:00 09/02/20 08:47 Ferrous Gluconate 324 Mg Tablet PO 324 mg DAILYWM ASH Administration Sodium Chloride 1,000 mls @ 100 mls/hr 09/01/20 19:00 09/02/20 05:15 Normal Saline 0.9% IV 0 mls/hr .Q10H ASH Infusion Cefepime HCl 2 gm/ Sodium 100 mls @ 200 mls/hr 09/01/20 21:00 09/02/20 09:30 Chloride IV Infused BID ASH Infusion Losartan Potassium 100 mg 09/02/20 09:00 09/02/20 08:46 Losartan 50 Mg Tablet PO 100 mg DAILY ASH Administration Multi-Ingredient Ointment 1 applic 09/01/20 22:27 09/02/20 08:53 Zinc Oxide 20% Oint 30 Gm Tube TOP 1 applic PRN PRN Administration Skin Care Multivitamins/Minerals 1 tab 09/02/20 08:00 09/02/20 08:46 Multivitamin W/Minerals Tablet PO 1 tab DAILYWM ASH Administration Oxycodone HCl 5 mg 09/01/20 18:51 09/02/20 08:55 Oxycodone 5 Mg Tablet PO 5 mg Q4HR PRN Administration Pain 5 to 7 Saccharomyces Boulardii 250 mg 09/02/20 08:00 09/02/20 08:47 Saccharomyces Boulardii 250 Mg Capsule PO 250 mg BIDWM ASH Administration Sodium Chloride 10 ml 09/02/20 01:00 09/02/20 08:48 Sodium Chloride Flush 0.9% 10 Ml Syringe IVP Not Given 0100,0900,1700 ASH - Lab Result Fish Bone Diagrams: 09/02/20 04:46 09/02/20 04:46 - Additional Planning My Orders: My Active Orders 09/02/20 08:00 Ferrous Gluconate [Fergon] 324 mg PO DAILYWM Multivitamin W/Minerals [Theragran M] 1 tab PO DAILYWM Saccharomyces Boulardii [Florastor] 250 mg PO BIDWM 09/02/20 08:27 Nutrition Consult [CONS] Routine 09/03/20 05:00 CRP - C-REACTIVE PROTEIN [CHEM] DAILYLAB 09/04/20 05:00 CRP - C-REACTIVE PROTEIN [CHEM] DAILYLAB 09/05/20 05:00 CRP - C-REACTIVE PROTEIN [CHEM] DAILYLAB 09/06/20 05:00 CRP - C-REACTIVE PROTEIN [CHEM] DAILYLAB 09/07/20 05:00 CRP - C-REACTIVE PROTEIN [CHEM] DAILYLAB 09/08/20 05:00 CRP - C-REACTIVE PROTEIN [CHEM] DAILYLAB 09/09/20 05:00 CRP - C-REACTIVE PROTEIN [CHEM] DAILYLAB 09/10/20 05:00 CRP - C-REACTIVE PROTEIN [CHEM] DAILYLAB Subjective - Subjective Patient Reports: Feeling Better Objective Vital Signs: Vital Signs - 24 hr 09/01/20 09/01/20 09/01/20 16:37 18:39 20:14 Temperature 36.3 C L 36.5 C 36.8 C Heart Rate 93 79 Heart Rate [ 88 Monitoring electrodes] Respiratory 16 16 16 Rate Blood Pressure 155/79 H 156/89 H Blood Pressure 165/71 H [Right Brachial artery] O2 Saturation 100 98 100 09/02/20 09/02/20 09/02/20 01:00 05:00 07:48 Temperature 36.6 C 36.6 C 36.7 C Heart Rate Heart Rate [ 76 79 82 Monitoring electrodes] Respiratory 14 14 16 Rate Blood Pressure Blood Pressure 132/65 H 115/54 L 102/71 [Right Brachial artery] O2 Saturation 99 100 100 Oxygen O2 Source Room air I&O (Last 24 Hrs): Intake and Output Totals x24h 08/31/20 09/01/20 09/02/20 23:59 23:59 23:59 Intake Total 1200 2843.333 Output Total 475 1800 Balance 725 1043.333 General: Alert, Oriented x3, Cooperative, No acute distress HEENT: Atraumatic Neck: Supple Lymphatic: no adenopathy Neuro: Alert, Non Focal, Oriented Times 3 Cardiovascular: Regular rate, Normal S1, Normal S2 Respiratory: Chest non-tender, No respiratory distress Abdomen: Normal bowel sounds, Soft, No tenderness Extremities: Normal pulses - Results Results: Laboratory Results WBC 11.2 x10^3/uL (4.8-10.8) H 09/02/20 04:46 RBC 3.77 10^6/uL (4.70-6.10) L 09/02/20 04:46 Hgb 9.3 g/dL (14.0-18.0) L 09/02/20 04:46 Hct 29.6 % (42.0-52.0) L 09/02/20 04:46 MCV 78.5 fL (80.0-94.0) L 09/02/20 04:46 MCH 24.7 pg (27.0-31.0) L 09/02/20 04:46 MCHC 31.4 g/dL (32.0-36.0) L 09/02/20 04:46 RDW 15.2 % (12.0-15.0) H 09/02/20 04:46 Plt Count 455 10^3/uL (130-450) H 09/02/20 04:46 MPV 8.4 fL (7.4-11.4) 09/02/20 04:46 Neut # (Auto) 8.6 10^3/uL (1.5-6.6) H 09/02/20 04:46 Lymph # (Auto) 1.3 10^3/uL (1.5-3.5) L 09/02/20 04:46 Kings # (Auto) 1.0 10^3/uL (0.0-1.0) 09/02/20 04:46 Eos # (Auto) 0.1 10^3/uL (0.0-0.7) 09/02/20 04:46 Baso # (Auto) 0.1 10^3/uL (0.0-0.1) 09/02/20 04:46 Absolute Nucleated RBC 0.00 x10^3/uL 09/02/20 04:46 Nucleated RBC % 0.0 /100WBC 09/02/20 04:46 ESR 110 mm/Hr (0-20) H 09/01/20 17:36 PT 15.8 secs (9.9-12.6) H 09/01/20 17:36 INR 1.5 (0.8-1.2) H 09/01/20 17:36 APTT 30.3 secs (24.9-33.3) 09/01/20 17:36 Sodium 123 mmol/L (135-145) L 09/02/20 04:46 Potassium 3.7 mmol/L (3.5-5.0) 09/02/20 04:46 Chloride 90 mmol/L (101-111) L 09/02/20 04:46 Carbon Dioxide 23 mmol/L (21-32) 09/02/20 04:46 Anion Gap 10.0 (6-13) 09/02/20 04:46 BUN 5 mg/dL (6-20) L 09/02/20 04:46 Creatinine 0.6 mg/dL (0.6-1.2) 09/02/20 04:46 Estimated GFR (MDRD) 139 (>89) 09/02/20 04:46 Glucose 115 mg/dL (70-100) H 09/02/20 04:46 Lactic Acid 0.8 mmol/L (0.5-2.2) 09/01/20 17:36 Calcium 8.3 mg/dL (8.5-10.3) L 09/02/20 04:46 Phosphorus 3.5 mg/dL (2.5-4.6) 09/02/20 04:46 Magnesium 2.1 mg/dL (1.7-2.8) 09/02/20 04:46 Iron 20 ug/dL (45-182) L 09/01/20 17:36 TIBC 192 ug/dL (250-450) L 09/01/20 17:36 % Saturation 10 % (20-50) L 09/01/20 17:36 Transferrin 137 mg/dL (180-329) L 09/01/20 17:36 Ferritin 255.4 ng/mL (23.9-336.2) 09/01/20 17:36 Total Bilirubin 0.5 mg/dL (0.2-1.0) 09/01/20 17:36 AST 24 IU/L (10-42) 09/01/20 17:36 ALT 24 IU/L (10-60) 09/01/20 17:36 Alkaline Phosphatase 96 IU/L (42-121) 09/01/20 17:36 C-Reactive Protein 17.6 mg/dL (0-1.0) H 09/02/20 04:46 Total Protein 7.6 g/dL (6.7-8.2) 09/01/20 17:36 Albumin 2.7 g/dL (3.2-5.5) L 09/01/20 17:36 Globulin 4.9 g/dL (2.1-4.2) H 09/01/20 17:36 Albumin/Globulin Ratio 0.6 (1.0-2.2) L 09/01/20 17:36 Lipase 53 U/L (22-51) H 09/01/20 17:36 Vitamin B12 306 pg/mL (180-914) 09/02/20 04:46 Urine Color YELLOW 09/01/20 17:20 Urine Clarity CLEAR (CLEAR) 09/01/20 17:20 Urine pH 7.5 PH (5.0-7.5) 09/01/20 17:20 Ur Specific [place] 1.015 (1.002-1.030) 09/01/20 17:20 Urine Protein NEGATIVE mg/dL (NEGATIVE) 09/01/20 17:20 Urine Glucose (UA) NEGATIVE mg/dL (NEGATIVE) 09/01/20 17:20 Urine Ketones NEGATIVE mg/dL (NEGATIVE) 09/01/20 17:20 Urine Occult Blood NEGATIVE (NEGATIVE) 09/01/20 17:20 Urine Nitrite NEGATIVE (NEGATIVE) 09/01/20 17:20 Urine Bilirubin NEGATIVE (NEGATIVE) 09/01/20 17:20 Urine Urobilinogen 0.2 (NORMAL) E.U./dL (NORMAL) 09/01/20 17:20 Ur Leukocyte Esterase NEGATIVE (NEGATIVE) 09/01/20 17:20 Ur Microscopic Review NOT INDICATED 09/01/20 17:20 Urine Culture Comments NOT INDICATED 09/01/20 17:20 Nasal Adenovirus (PCR) NOT DETECTED 09/01/20 19:19 Nasal B. parapertussis DNA (PCR) NOT DETECTED 09/01/20 19:19 Nasal Coronavir 229E PCR NOT DETECTED 09/01/20 19:19 Nasal Coronavir HKU1 PCR NOT DETECTED 09/01/20 19:19 Nasal Coronavir NL63 PCR NOT DETECTED 09/01/20 19:19 Nasal Coronavir OC43 PCR NOT DETECTED 09/01/20 19:19 Nasal Enterovir/Rhinovir PCR NOT DETECTED 09/01/20 19:19 Nasal Influenza B PCR NOT DETECTED 09/01/20 19:19 Nasal Influenza A PCR NOT DETECTED 09/01/20 19:19 Nasal Parainfluen 1 PCR NOT DETECTED 09/01/20 19:19 Nasal Parainfluen 2 PCR NOT DETECTED 09/01/20 19:19 Nasal Parainfluen 3 PCR NOT DETECTED 09/01/20 19:19 Nasal Parainfluen 4 PCR NOT DETECTED 09/01/20 19:19 Nasal RSV (PCR) NOT DETECTED 09/01/20 19:19 Nasal B.pertussis DNA PCR NOT DETECTED 09/01/20 19:19 Nasal C.pneumoniae (PCR) NOT DETECTED 09/01/20 19:19 Jhonny Human Metapneumo PCR NOT DETECTED 09/01/20 19:19 Nasal M.pneumoniae (PCR) NOT DETECTED 09/01/20 19:19 Nasal SARS-CoV-2 (PCR) NOT DETECTED 09/01/20 19:19 ABX Reporting Has patient been on IV antibiotics over the past 48 hours?: Yes Current Medications - Current Medications Current Medications: Active Medications Acetaminophen (Acetaminophen 325 Mg Tablet) 650 mg PO Q4HR PRN PRN Reason: Pain 1 to 4 Last Admin: 09/02/20 08:54 Dose: 650 mg Documented by: Carvedilol (Carvedilol 12.5 Mg Tablet) 25 mg PO BID [facility] Last Admin: 09/02/20 08:46 Dose: 25 mg Documented by: Enoxaparin Sodium (Enoxaparin 40 Mg/0.4 Ml Syringe) 40 mg SUBQ DAILY [facility] Last Admin: 09/02/20 08:47 Dose: 40 mg Documented by: Ferrous Gluconate (Ferrous Gluconate 324 Mg Tablet) 324 mg PO DAILYWM [facility] Last Admin: 09/02/20 08:47 Dose: 324 mg Documented by: Sodium Chloride (Normal Saline 0.9%) 1,000 mls @ 100 mls/hr IV .Q10H [facility] Last Admin: 09/02/20 11:30 Dose: 100 mls/hr Documented by: Cefepime HCl 2 gm/ Sodium (Chloride) 100 mls @ 200 mls/hr IV BID [facility] Last Infusion: 09/02/20 09:30 Dose: Infused Documented by: Vancomycin HCl 1 gm/Vancomycin HCl 250 mg/ Sodium Chloride 250 mls @ 166.667 mls/hr IV Q8H [facility] Losartan Potassium (Losartan 50 Mg Tablet) 100 mg PO DAILY [facility] Last Admin: 09/02/20 08:46 Dose: 100 mg Documented by: Morphine Sulfate (Morphine 2 Mg/Ml Carpuject) 2 mg IVP Q2HR PRN PRN Reason: Pain 8 to 10 Multi-Ingredient Ointment (Zinc Oxide 20% Oint 30 Gm Tube) 1 applic TOP PRN PRN PRN Reason: Skin Care Last Admin: 09/02/20 08:53 Dose: 1 applic Documented by: Multivitamins/Minerals (Multivitamin W/Minerals Tablet) 1 tab PO DAILYWM [facility] Last Admin: 09/02/20 08:46 Dose: 1 tab Documented by: Ondansetron HCl (Ondansetron 4 Mg/2 Ml Vial) 4 mg IVP Q6HR PRN PRN Reason: Nausea / Vomiting Ondansetron HCl (Ondansetron Odt 4 Mg Tablet) 4 mg TL Q6HR PRN PRN Reason: Nausea / Vomiting Oxycodone HCl (Oxycodone 5 Mg Tablet) 5 mg PO Q4HR PRN PRN Reason: Pain 5 to 7 Last Admin: 09/02/20 08:55 Dose: 5 mg Documented by: Saccharomyces Boulardii (Saccharomyces Boulardii 250 Mg Capsule) [facility] Last Admin: 09/02/20 08:47 Dose: 250 mg Documented by: Sodium Chloride (Sodium Chloride Flush 0.9% 10 Ml Syringe) 10 ml IVP PRN PRN PRN Reason: NEEDED PER PROVIDER ORDERS Sodium Chloride (Sodium Chloride Flush 0.9% 10 Ml Syringe) 10 ml IVP 0100,0900,1700 [facility] Last Admin: 09/02/20 08:48 Dose: Not Given Documented by: Losartan Potassium [Cozaar] 1 tablet PO DAILY 08/25/20 cilostazoL [Cilostazol] 50 mg PO BID 08/25/20 Aspirin [[place] Aspirin] 81 mg PO DAILY 09/01/20 Carvedilol [Coreg] 25 mg PO BID 09/01/20
[2020-09-02] MEDS: SODIUM CHLORIDE 0.9% 1,000 ML IV SCH (11:30)
[2020-09-02] MEDS: VANCOMYCIN INJ 1 GM, VANCOMYCIN INJ 250 MG in SODIUM CHLORIDE 0.9% 250 ML IV SCH ×2 (13:22→21:14)
[2020-09-02] MEDS ORDERED: LIDOCAINE OINTMENT 5% 35.44 GM TUBE TOP PRN (14:23)
[2020-09-03] MEDS: SODIUM CHLORIDE 0.9% 1,000 ML IV SCH ×2 (00:42→15:36)
[2020-09-03] MEDS: SODIUM CHLORIDE FLUSH 0.9% 10 ML SYRINGE IVP SCH ×3 (00:43→15:37)
[2020-09-03] MEDS: oxyCODONE 5 MG TABLET PO PRN ×6 (00:56→22:39)
[2020-09-03 05:09] LABS: BASOPHILS # (AUTO) 0.1 10^3/uL (0.0-0.1); BASOPHILS % (AUTO) 0.7 %; EOSINOPHILS # (AUTO) 0.1 10^3/uL (0.0-0.7); EOSINOPHILS % (AUTO) 0.6 %; HCT - HEMATOCRIT 29.3 % (42.0-52.0); LYMPHOCYTES # (AUTO) 1.5 10^3/uL (1.5-3.5); LYMPHOCYTES % (AUTO) 13.3 %; MEAN CORPUSCULAR HEMOGLOBIN 24.8 pg (27.0-31.0); MEAN CORPUSCULAR HGB CONC 30.7 g/dL (32.0-36.0); MEAN CORPUSCULAR VOLUME 80.7 fL (80.0-94.0); MEAN PLATELET VOLUME 8.3 fL (7.4-11.4); MONOCYTES # (AUTO) 0.9 10^3/uL (0.0-1.0); MONOCYTES % (AUTO) 8.2 %; NEUTROPHILS # (AUTO) 8.3 10^3/uL (1.5-6.6); NEUTROPHILS % (AUTO) 76.2 %; PLT - PLATELET COUNT 511 10^3/uL (130-450); RED BLOOD COUNT 3.63 10^6/uL (4.70-6.10); RED CELL DISTRIBUTION WIDTH 15.1 % (12.0-15.0); WHITE BLOOD COUNT 10.9 x10^3/uL (4.8-10.8)
[2020-09-03 05:27] LABS: CALCIUM 8.2 mg/dL (8.5-10.3); CREATININE 0.7 mg/dL (0.6-1.2); CRP - C-REACTIVE PROTEIN 15.6 mg/dL (0-1.0); MAGNESIUM 2.1 mg/dL (1.7-2.8); PHOSPHORUS 3.2 mg/dL (2.5-4.6); POTASSIUM 3.9 mmol/L (3.5-5.0)
[2020-09-03] MEDS: VANCOMYCIN INJ 1 GM, VANCOMYCIN INJ 250 MG in SODIUM CHLORIDE 0.9% 250 ML IV SCH ×3 (05:51→20:57)
[2020-09-03] MEDS: MORPHINE 2 MG/ML CARPUJECT IVP PRN (06:03)
--- NOTE | 2020-09-03 07:19 | PROVIDER PROGRESS NOTE ---
Subjective - Prog Note Date Prog Note Date: 09/03/20 - Subjective Subjective: He reports doing okay overall. He is looking forward to getting the surgery completed. He understands why he needs an above-knee amputation. States his pain is relatively controlled at this time in his right lower extremity. Denies chest pain or dyspnea. Current Medications - Current Medications Current Medications: Active Medications Acetaminophen (Acetaminophen 325 Mg Tablet) 650 mg PO Q4HR PRN PRN Reason: Pain 1 to 4 Last Admin: 09/02/20 08:54 Dose: 650 mg Documented by: Carvedilol (Carvedilol 12.5 Mg Tablet) 25 mg PO BID [facility] Last Admin: 09/02/20 20:38 Dose: 25 mg Documented by: Enoxaparin Sodium (Enoxaparin 40 Mg/0.4 Ml Syringe) 40 mg SUBQ DAILY [facility] Last Admin: 09/02/20 08:47 Dose: 40 mg Documented by: Ferrous Gluconate (Ferrous Gluconate 324 Mg Tablet) 324 mg PO DAILYWM [facility] Last Admin: 09/02/20 08:47 Dose: 324 mg Documented by: Sodium Chloride (Normal Saline 0.9%) 1,000 mls @ 100 mls/hr IV .Q10H [facility] Last Admin: 09/03/20 00:42 Dose: 100 mls/hr Documented by: Cefepime HCl 2 gm/ Sodium (Chloride) 100 mls @ 200 mls/hr IV BID [facility] Last Infusion: 09/02/20 22:40 Dose: Infused Documented by: Vancomycin HCl 1 gm/Vancomycin HCl 250 mg/ Sodium Chloride 250 mls @ 166.667 mls/hr IV Q8H [facility] Last Admin: 09/03/20 05:51 Dose: 166.667 mls/hr Documented by: Lidocaine (Lidocaine Ointment 5% 35.44 Gm Tube) 1 applic TOP DAILY PRN PRN Reason: DRESSING CHANGES Losartan Potassium (Losartan 50 Mg Tablet) 100 mg PO DAILY [facility] Last Admin: 09/02/20 08:46 Dose: 100 mg Documented by: Morphine Sulfate (Morphine 2 Mg/Ml Carpuject) 2 mg IVP Q2HR PRN PRN Reason: Pain 8 to 10 Last Admin: 09/03/20 06:03 Dose: 2 mg Documented by: Multi-Ingredient Ointment (Zinc Oxide 20% Oint 30 Gm Tube) 1 applic TOP PRN PRN PRN Reason: Skin Care Last Admin: 09/02/20 08:53 Dose: 1 applic Documented by: Multivitamins/Minerals (Multivitamin W/Minerals Tablet) 1 tab PO DAILYWM [facility] Last Admin: 09/02/20 08:46 Dose: 1 tab Documented by: Nicotine (Nicotine 21 Mg Patch) 1 patch TOP DAILY [facility] Ondansetron HCl (Ondansetron 4 Mg/2 Ml Vial) 4 mg IVP Q6HR PRN PRN Reason: Nausea / Vomiting Ondansetron HCl (Ondansetron Odt 4 Mg Tablet) 4 mg TL Q6HR PRN PRN Reason: Nausea / Vomiting Oxycodone HCl (Oxycodone 5 Mg Tablet) 5 mg PO Q4HR PRN PRN Reason: Pain 5 to 7 Last Admin: 09/03/20 05:51 Dose: 5 mg Documented by: Saccharomyces Boulardii (Saccharomyces Boulardii 250 Mg Capsule) 250 mg PO BIDWM [facility] Last Admin: 09/02/20 16:30 Dose: 250 mg Documented by: Sodium Chloride (Sodium Chloride Flush 0.9% 10 Ml Syringe) 10 ml IVP PRN PRN PRN Reason: NEEDED PER PROVIDER ORDERS Sodium Chloride (Sodium Chloride Flush 0.9% 10 Ml Syringe) 10 ml IVP 0100,0900,1700 [facility] Last Admin: 09/03/20 00:43 Dose: Not Given Documented by: Losartan Potassium [Cozaar] 1 tablet PO DAILY 08/25/20 cilostazoL [Cilostazol] 50 mg PO BID 08/25/20 Aspirin [[place] Aspirin] 81 mg PO DAILY 09/01/20 Carvedilol [Coreg] 25 mg PO BID 09/01/20 Objective - Vital Signs/Intake & Output Reviewed Vital Signs: Yes Vital Signs: Vital Signs x48h Temp Pulse Resp BP Pulse Ox 09/03/20 07:15 37.1 C 90 17 153/67 H 96 09/03/20 05:00 36.0 C L 87 15 142/63 H 96 09/03/20 00:08 36.0 C L 78 17 144/69 H 98 Intake & Output: Intake & Output 08/31/20 09/01/20 09/02/20 09/03/20 23:59 23:59 23:59 23:59 Intake Total 1200 5643.333 480 Output Total 357 2650 2790 Balance 725 2194.092 -8858 - Objective General Appearance: positive: No acute distress, Alert Eyes Bilateral: positive: Normal inspection, Conjunctivae nml ENT: positive: ENT inspection nml Neck: positive: Nml inspection Respiratory: positive: No respiratory distress, Wheezes (Faint expiratory wheezes.). negative: Rales, Rhonchi Cardiovascular: positive: Regular rate & rhythm, No murmur. negative: Tachycardia Abdomen: positive: Non-tender, No distention. negative: Tenderness Skin: positive: Other (Dressing is in place over his right lower extremity from the mid ryder down to the foot. The skin just below the knee does appear dusky with mild erythema.) Extremities: positive: Pedal edema (He has +1 to +2 pitting edema in his right lower extremity up to the thigh.), Other (Left AKAK noted with dressing over the stump.) Neurologic/Psychiatric: negative: Disoriented to person, Disoriented to place - Lab Results Fish Bones: 09/03/20 04:35 09/03/20 04:35 Other Labs: Lab Results x24hrs 09/03/20 09/03/20 09/02/20 Range/Units 04:35 04:35 04:46 WBC 10.9 H (4.8-10.8) x10^3/uL RBC 3.63 L (4.70-6.10) 10^6/uL Hgb 9.0 L (14.0-18.0) g/dL Hct 29.3 L (42.0-52.0) % MCV 80.7 (80.0-94.0) fL MCH 24.8 L (27.0-31.0) pg MCHC 30.7 L (32.0-36.0) g/dL RDW 15.1 H (12.0-15.0) % Plt Count 511 H (130-450) 10^3/uL MPV 8.3 (7.4-11.4) fL Neut # (Auto) 8.3 H (1.5-6.6) 10^3/uL Lymph # (Auto) 1.5 (1.5-3.5) 10^3/uL [place]ctor # (Auto) 0.9 (0.0-1.0) 10^3/uL Eos # (Auto) 0.1 (0.0-0.7) 10^3/uL Baso # (Auto) 0.1 (0.0-0.1) 10^3/uL Absolute Nucleated RBC 0.00 x10^3/uL Nucleated RBC % 0.0 /100WBC Sodium 128 L (135-145) mmol/L Potassium 3.9 (3.5-5.0) mmol/L Chloride 95 L (101-111) mmol/L Carbon Dioxide 24 (21-32) mmol/L Anion Gap 9.0 (6-13) BUN 6 (6-20) mg/dL Creatinine 0.7 (0.6-1.2) mg/dL Estimated GFR (MDRD) 116 (>89) Glucose 111 H (70-100) mg/dL Calcium 8.2 L (8.5-10.3) mg/dL Phosphorus 3.2 (2.5-4.6) mg/dL Magnesium 2.1 (1.7-2.8) mg/dL C-Reactive Protein 15.6 H 17.6 H (0-1.0) mg/dL Vitamin B12 (180-914) pg/mL 09/02/20 Range/Units 04:46 WBC (4.8-10.8) x10^3/uL RBC (4.70-6.10) 10^6/uL Hgb (14.0-18.0) g/dL Hct (42.0-52.0) % MCV (80.0-94.0) fL MCH (27.0-31.0) pg MCHC (32.0-36.0) g/dL RDW (12.0-15.0) % Plt Count (130-450) 10^3/uL MPV (7.4-11.4) fL Neut # (Auto) (1.5-6.6) 10^3/uL Lymph # (Auto) (1.5-3.5) 10^3/uL [place] # (Auto) (0.0-1.0) 10^3/uL Eos # (Auto) (0.0-0.7) 10^3/uL Baso # (Auto) (0.0-0.1) 10^3/uL Absolute Nucleated RBC x10^3/uL Nucleated RBC % /100WBC Sodium (135-145) mmol/L Potassium (3.5-5.0) mmol/L Chloride (101-111) mmol/L Carbon Dioxide (21-32) mmol/L Anion Gap (6-13) BUN (6-20) mg/dL Creatinine (0.6-1.2) mg/dL Estimated GFR (MDRD) (>89) Glucose (70-100) mg/dL Calcium (8.5-10.3) mg/dL Phosphorus (2.5-4.6) mg/dL Magnesium (1.7-2.8) mg/dL C-Reactive Protein (0-1.0) mg/dL Vitamin B12 306 (180-914) pg/mL ABX Reporting Has patient been on IV antibiotics over the past 48 hours?: Yes Sepsis Event Note (H) - Evaluation Current Stage of Sepsis: Ruled out Assessment/Plan - Problem List (1) 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 Fortunately at this time, he does not appear septic. He does have surrounding cellulitis and we have kept him on vancomycin and cefepime IV. We will continue the IV antibiotics for the cellulitis and we are hopeful that he will be able to go to the OR tomorrow or the day after once the cellulitis improves. Unfortunately he is not a candidate for any vascular intervention and above-knee amputation is the only option. Appreciate orthopedic input. (2) Cellulitis of right lower extremity Impression: He does have surrounding cellulitis of the right lower extremity. This is improved. His white count continues to decrease as well as his CRP. The plan is to continue IV antibiotics and taken to the OR for above-knee amputation either tomorrow or day after as his cellulitis improves. Continue vancomycin and cefepime IV with today being day 3. (3) Hyponatremia Impression: This was felt to be hypovolemic hyponatremia despite his edema. His sodium is slowly improving each day at an appropriate rate with IV fluids.. We will continue him on normal saline IV. Will repeat BMP in the evening. (4) PAD (peripheral artery disease) Impression: He has known peripheral arterial disease which are unfortunate not amenable to any intervention. He has already had a left above-knee amputation and will now require a right above-knee amputation. (5) Pancreatic mass Impression: He has a known pancreatic mass but he declined further work-up of this in the past. We did repeat a CA 19-9 which is within normal limits. He will need outpatient follow-up with his primary care provider and oncology once discharged. (6) HTN (hypertension) Impression: He remains hypertensive with systolics in the 140s. We have resumed his home carvedilol and losartan. If his blood pressure remains elevated we will consider adding amlodipine. Qualifiers: Hypertension type: essential hypertension Qualified Code(s): I10 - Essential (primary) hypertension (7) COPD (chronic obstructive pulmonary disease) Impression: He reports a history of COPD which is likely given his significant smoking histo ry. He does have faint expiratory wheezes on exam but no dyspnea or cough. We will place him on albuterol as needed. (8) Iron deficiency anemia Impression: We have started him on oral iron segmentation which we will continue. His hemoglobin is stable without evidence of bleeding.
[2020-09-03] MEDS: ACETAMINOPHEN 325 MG TABLET PO PRN (08:53)
[2020-09-03] MEDS: carvediloL 12.5 MG TABLET PO SCH ×2 (08:54→20:27)
[2020-09-03] MEDS: FERROUS GLUCONATE 324 MG TABLET PO SCH (08:54)
[2020-09-03] MEDS: LOSARTAN 50 MG TABLET PO SCH (08:54)
[2020-09-03] MEDS: SACCHAROMYCES BOULARDII 250 MG CAPSULE PO SCH ×2 (08:54→17:09)
[2020-09-03] MEDS: MULTIVITAMIN W/MINERALS TABLET PO SCH (08:54)
[2020-09-03] MEDS: CEFEPIME 2 GM in SODIUM CHLORIDE 0.9% MINIBAG 100 ML IV SCH ×2 (08:55→20:26)
[2020-09-03] MEDS: NICOTINE 21 MG PATCH TOP SCH (08:55)
[2020-09-03] MEDS: ENOXAPARIN 40 MG/0.4 ML SYRINGE SUBQ SCH (08:55)
--- NOTE | 2020-09-03 10:18 | PROVIDER PROGRESS NOTE ---
Subjective - General Admit Date: 09/01/20 - Review of Systems Wound/Incisions: positive: Erythema improving General: positive: No symptoms Psychiatric: positive: Mood lability, Agitation (pain under control with analgesics) Objective - Patient Data Vital Signs: Vital Signs x48h Temp Pulse Resp BP Pulse Ox 09/03/20 07:15 37.1 C 90 17 153/67 H 96 09/03/20 05:00 36.0 C L 87 15 142/63 H 96 Weight: Weight 09/01/20 09/02/20 09/03/20 23:59 23:59 23:59 Weight (kg) 82 kg Intake & Output: Intake and Output Totals x24h 09/01/20 09/02/20 09/03/20 23:59 23:59 23:59 Intake Total 1200 5643.333 2030 Output Total 475 3450 2950 Balance 725 2193.333 -920 - Lab Results Lab Results: 09/03/20 04:35 09/03/20 04:35 Other Lab Results: Lab Results x24hrs 09/03/20 09/03/20 09/01/20 Range/Units 04:35 04:35 17:31 WBC 10.9 H (4.8-10.8) x10^3/uL RBC 3.63 L (4.70-6.10) 10^6/uL Hgb 9.0 L (14.0-18.0) g/dL Hct 29.3 L (42.0-52.0) % MCV 80.7 (80.0-94.0) fL MCH 24.8 L (27.0-31.0) pg MCHC 30.7 L (32.0-36.0) g/dL RDW 15.1 H (12.0-15.0) % Plt Count 511 H (130-450) 10^3/uL MPV 8.3 (7.4-11.4) fL Neut # (Auto) 8.3 H (1.5-6.6) 10^3/uL Lymph # (Auto) 1.5 (1.5-3.5) 10^3/uL [place] # (Auto) 0.9 (0.0-1.0) 10^3/uL Eos # (Auto) 0.1 (0.0-0.7) 10^3/uL Baso # (Auto) 0.1 (0.0-0.1) 10^3/uL Absolute Nucleated RBC 0.00 x10^3/uL Nucleated RBC % 0.0 /100WBC Sodium 128 L (135-145) mmol/L Potassium 3.9 (3.5-5.0) mmol/L Chloride 95 L (101-111) mmol/L Carbon Dioxide 24 (21-32) mmol/L Anion Gap 9.0 (6-13) BUN 6 (6-20) mg/dL Creatinine 0.7 (0.6-1.2) mg/dL Estimated GFR (MDRD) 116 (>89) Glucose 111 H (70-100) mg/dL Calcium 8.2 L (8.5-10.3) mg/dL Phosphorus 3.2 (2.5-4.6) mg/dL Magnesium 2.1 (1.7-2.8) mg/dL C-Reactive Protein 15.6 H (0-1.0) mg/dL CA 19-9 Antigen 14 (<34) U/mL - Current Medications Current Medications: Current Medications Generic Name Dose Route Start Last Admin Trade Name Freq PRN Reason Stop Dose Admin Acetaminophen 650 mg 09/01/20 18:51 09/03/20 08:53 Acetaminophen 325 Mg Tablet PO 650 mg Q4HR PRN Administration Pain 1 to 4 Carvedilol 25 mg 09/01/20 21:00 09/03/20 08:54 Carvedilol 12.5 Mg Tablet PO 25 mg BID ASH Administration Enoxaparin Sodium 40 mg 09/02/20 09:00 09/03/20 08:55 Enoxaparin 40 Mg/0.4 Ml Syringe SUBQ 40 mg DAILY ASH Administration Ferrous Gluconate 324 mg 09/02/20 08:00 09/03/20 08:54 Ferrous Gluconate 324 Mg Tablet PO 324 mg DAILYWM ASH Administration Sodium Chloride 1,000 mls @ 100 mls/hr 09/01/20 19:00 09/03/20 00:42 Normal Saline 0.9% IV 100 mls/hr .Q10H ASH Administration Cefepime HCl 2 gm/ Sodium 100 mls @ 200 mls/hr 09/01/20 21:00 09/03/20 09:33 Chloride IV Infused BID ASH Infusion Vancomycin HCl 1 gm/ 250 mls @ 166.667 mls/hr 09/02/20 13:00 09/03/20 07:22 Vancomycin HCl 250 mg/ Sodium IV Infused Chloride Q8H ASH Infusion Losartan Potassium 100 mg 09/02/20 09:00 09/03/20 08:54 Losartan 50 Mg Tablet PO 100 mg DAILY ASH Administration Morphine Sulfate 2 mg 09/01/20 18:51 09/03/20 06:03 Morphine 2 Mg/Ml Carpuject IVP 2 mg Q2HR PRN Administration Pain 8 to 10 Multi-Ingredient Ointment 1 applic 09/01/20 22:27 09/02/20 08:53 Zinc Oxide 20% Oint 30 Gm Tube TOP 1 applic PRN PRN Administration Skin Care Multivitamins/Minerals 1 tab 09/02/20 08:00 09/03/20 08:54 Multivitamin W/Minerals Tablet PO 1 tab DAILYWM ASH Administration Nicotine 1 patch 09/03/20 09:00 09/03/20 08:55 Nicotine 21 Mg Patch TOP 1 patch DAILY ASH Administration Oxycodone HCl 5 mg 09/01/20 18:51 09/03/20 10:11 Oxycodone 5 Mg Tablet PO 5 mg Q4HR PRN Administration Pain 5 to 7 Saccharomyces Boulardii 250 mg 09/02/20 08:00 09/03/20 08:54 Saccharomyces Boulardii 250 Mg Capsule PO 250 mg BIDWM ASH Administration Sodium Chloride 10 ml 09/02/20 01:00 09/03/20 08:55 Sodium Chloride Flush 0.9% 10 Ml Syringe IVP 10 ml 0100,0900,1700 [facility] Administration - Physical Exam Wound/Incisions: positive: Drainage (decreasing, no subucutaneous gas), Erythema improving General Appearance: positive: No acute distress, Alert, Anxious Skin: positive: Other (gangrene right lower extremity with coolness to foot and ankle) Neurologic/Psychiatric: positive: Oriented x3 Impression/Plan - Problem List Problem List: 1. Gangrene right lower extremity secondary to severe peripheral vascular disease 2. Chronic iron deficiency anemia 3. Cellulitis and soft tissue infection right lower extremity with some improvement as evidenced by being afebrile, stable, decreasing white blood cell count and improved swelling and redness 4 hyponatremia is also improving, apparently chronic 5 chronic pain with history of opioid, alcohol and marijuana use 6. Status post left above-knee amputation; never has received a prosthesis because of stump healing issues and has been nonambulatory 7 psychosocial abnormalities, noncompliant behavior Continue local dressing change, intravenous antibiotics with plan on Saturday to do a right above-knee amputation.
[2020-09-03] MEDS ORDERED: SODIUM CHLORIDE 0.9% 250 ML IV ONE (12:48)
[2020-09-03] MEDS ORDERED: VANCOMYCIN 1 GM VIAL ONE (12:48)
[2020-09-03] MEDS: IPRATROPIUM/ALBUTEROL 3 ML NEB INH PRN (16:45)
[2020-09-03] MEDS: ZINC OXIDE 20% OINT 30 GM TUBE TOP PRN (17:44)
[2020-09-03 19:11] LABS: CALCIUM 7.9 mg/dL (8.5-10.3); CREATININE 0.7 mg/dL (0.6-1.2); POTASSIUM 4.1 mmol/L (3.5-5.0)
[2020-09-04] MEDS: SODIUM CHLORIDE FLUSH 0.9% 10 ML SYRINGE IVP SCH ×3 (00:28→16:03)
[2020-09-04] MEDS: IPRATROPIUM/ALBUTEROL 3 ML NEB INH PRN ×2 (01:12→13:27)
[2020-09-04] MEDS: SODIUM CHLORIDE 0.9% 1,000 ML IV SCH ×3 (03:43→07:37)
[2020-09-04] MEDS: VANCOMYCIN INJ 1 GM, VANCOMYCIN INJ 250 MG in SODIUM CHLORIDE 0.9% 250 ML IV SCH (04:32)
[2020-09-04 05:27] LABS: BASOPHILS % (AUTO) 0.4 %; EOSINOPHILS # (AUTO) 0.1 10^3/uL (0.0-0.7); EOSINOPHILS % (AUTO) 0.7 %; HCT - HEMATOCRIT 29.1 % (42.0-52.0); HGB - HEMOGLOBIN 9.3 g/dL (14.0-18.0); LYMPHOCYTES # (AUTO) 1.4 10^3/uL (1.5-3.5); LYMPHOCYTES % (AUTO) 12.3 %; MEAN CORPUSCULAR HEMOGLOBIN 25.5 pg (27.0-31.0); MEAN CORPUSCULAR VOLUME 79.7 fL (80.0-94.0); MEAN PLATELET VOLUME 8.3 fL (7.4-11.4); MONOCYTES % (AUTO) 8.6 %; NEUTROPHILS # (AUTO) 8.5 10^3/uL (1.5-6.6); NEUTROPHILS % (AUTO) 76.7 %; PLT - PLATELET COUNT 467 10^3/uL (130-450); RED BLOOD COUNT 3.65 10^6/uL (4.70-6.10); RED CELL DISTRIBUTION WIDTH 15.1 % (12.0-15.0); WHITE BLOOD COUNT 11.1 x10^3/uL (4.8-10.8)
[2020-09-04 05:40] LABS: CALCIUM 8.5 mg/dL (8.5-10.3); CREATININE 0.7 mg/dL (0.6-1.2); CRP - C-REACTIVE PROTEIN 19.3 mg/dL (0-1.0); MAGNESIUM 2.1 mg/dL (1.7-2.8); PHOSPHORUS 2.9 mg/dL (2.5-4.6); POTASSIUM 3.6 mmol/L (3.5-5.0)
[2020-09-04] MEDS: CEFEPIME 2 GM in SODIUM CHLORIDE 0.9% MINIBAG 100 ML IV SCH ×2 (08:13→20:07)
[2020-09-04] MEDS: ENOXAPARIN 40 MG/0.4 ML SYRINGE SUBQ SCH (08:13)
[2020-09-04] MEDS: LOSARTAN 50 MG TABLET PO SCH (08:14)
[2020-09-04] MEDS: MULTIVITAMIN W/MINERALS TABLET PO SCH (08:15)
[2020-09-04] MEDS: SACCHAROMYCES BOULARDII 250 MG CAPSULE PO SCH ×2 (08:15→16:02)
[2020-09-04] MEDS: FERROUS GLUCONATE 324 MG TABLET PO SCH (08:15)
[2020-09-04] MEDS: carvediloL 12.5 MG TABLET PO SCH ×2 (08:15→20:10)
[2020-09-04] MEDS: NICOTINE 21 MG PATCH TOP SCH (08:16)
--- NOTE | 2020-09-04 09:29 | PROVIDER PROGRESS NOTE ---
Subjective - Prog Note Date Prog Note Date: 09/04/20 - Subjective Subjective: He reports feeling well. He is looking forward to having the surgery tomorrow. Denies any chest pain or dyspnea. Current Medications - Current Medications Current Medications: Active Medications Acetaminophen (Acetaminophen 325 Mg Tablet) 650 mg PO Q4HR PRN PRN Reason: Pain 1 to 4 Last Admin: 09/03/20 08:53 Dose: 650 mg Documented by: Albuterol/Ipratropium (Ipratropium/Albuterol 3 Ml Neb) 3 ml INH Q4HR PRN PRN Reason: Wheezing Last Admin: 09/04/20 01:12 Dose: 3 ml Documented by: Carvedilol (Carvedilol 12.5 Mg Tablet) 25 mg PO BID [facility] Last Admin: 09/04/20 08:15 Dose: 25 mg Documented by: Enoxaparin Sodium (Enoxaparin 40 Mg/0.4 Ml Syringe) 40 mg SUBQ DAILY [facility] Last Admin: 09/04/20 08:13 Dose: 40 mg Documented by: Ferrous Gluconate (Ferrous Gluconate 324 Mg Tablet) 324 mg PO DAILYWM [facility] Last Admin: 09/04/20 08:15 Dose: 324 mg Documented by: Sodium Chloride (Normal Saline 0.9%) 1,000 mls @ 100 mls/hr IV .Q10H [facility] Last Admin: 09/04/20 07:37 Dose: Not Given Documented by: Cefepime HCl 2 gm/ Sodium (Chloride) 100 mls @ 200 mls/hr IV BID [facility] Last Infusion: 09/04/20 08:52 Dose: Infused Documented by: Vancomycin HCl 1 gm/Vancomycin HCl 250 mg/ Sodium Chloride 250 mls @ 166.667 mls/hr IV Q8H [facility] Last Infusion: 09/04/20 06:05 Dose: Infused Documented by: Lidocaine (Lidocaine Ointment 5% 35.44 Gm Tube) 1 applic TOP DAILY PRN PRN Reason: DRESSING CHANGES Last Admin: 09/03/20 17:44 Dose: 1 applic Documented by: Losartan Potassium (Losartan 50 Mg Tablet) 100 mg PO DAILY [facility] Last Admin: 09/04/20 08:14 Dose: 100 mg Documented by: Morphine Sulfate (Morphine 2 Mg/Ml Carpuject) 2 mg IVP Q2HR PRN PRN Reason: Pain 8 to 10 Last Admin: 09/03/20 06:03 Dose: 2 mg Documented by: Multi-Ingredient Ointment (Zinc Oxide 20% Oint 30 Gm Tube) 1 applic TOP PRN PRN PRN Reason: Skin Care Last Admin: 09/03/20 17:44 Dose: 1 applic Documented by: Multivitamins/Minerals (Multivitamin W/Minerals Tablet) 1 tab PO DAILYWM [facility] Last Admin: 09/04/20 08:15 Dose: 1 tab Documented by: Nicotine (Nicotine 21 Mg Patch) 1 patch TOP DAILY [facility] Last Admin: 09/04/20 08:16 Dose: 1 patch Documented by: Ondansetron HCl (Ondansetron 4 Mg/2 Ml Vial) 4 mg IVP Q6HR PRN PRN Reason: Nausea / Vomiting Last Admin: 09/04/20 08:19 Dose: 4 mg Documented by: Ondansetron HCl (Ondansetron Odt 4 Mg Tablet) 4 mg TL Q6HR PRN PRN Reason: Nausea / Vomiting Oxycodone HCl (Oxycodone 5 Mg Tablet) 5 mg PO Q4HR PRN PRN Reason: Pain 5 to 7 Last Admin: 09/03/20 22:39 Dose: 5 mg Documented by: Saccharomyces Boulardii (Saccharomyces Boulardii 250 Mg Capsule) 250 mg PO BIDWM [facility] Last Admin: 09/04/20 08:15 Dose: 250 mg Documented by: Sodium Chloride (Sodium Chloride Flush 0.9% 10 Ml Syringe) 10 ml IVP PRN PRN PRN Reason: NEEDED PER PROVIDER ORDERS Sodium Chloride (Sodium Chloride Flush 0.9% 10 Ml Syringe) 10 ml IVP 0100,0900,1700 [facility] Last Admin: 09/04/20 08:16 Dose: Not Given Documented by: Losartan Potassium [Cozaar] 1 tablet PO DAILY 08/25/20 cilostazoL [Cilostazol] 50 mg PO BID 08/25/20 Aspirin [[place] Aspirin] 81 mg PO DAILY 09/01/20 Carvedilol [Coreg] 25 mg PO BID 09/01/20 Objective - Vital Signs/Intake & Output Reviewed Vital Signs: Yes Vital Signs: Vital Signs x48h Temp Pulse Resp BP Pulse Ox 09/04/20 07:38 36.7 C 95 18 177/78 H 97 09/04/20 03:41 36.4 C L 86 18 163/65 H 100 Intake & Output: Intake & Output 09/01/20 09/02/20 09/03/20 09/04/20 23:59 23:59 23:59 23:59 Intake Total 1200 5643.333 6453.333 2278.334 Output Total 475 3450 6550 2350 Balance 725 2193.333 -96.667 -71.666 - Objective General Appearance: positive: No acute distress, Alert Eyes Bilateral: positive: Normal inspection, Conjunctivae nml ENT: positive: ENT inspection nml Neck: positive: Nml inspection Respiratory: positive: No respiratory distress, Wheezes (Faint expiratory wheezes.) Cardiovascular: positive: Regular rate & rhythm, No murmur. negative: Tachycardia Skin: positive: Warm, Dry, Other (Dressing remains in place over the right foot and right lower extremity up to the mid ryder. The erythema surrounding the wound is improved.) Extremities: positive: Pedal edema (+1 pitting edema in the right lower extremity.) - Lab Results Fish Bones: 09/04/20 04:37 09/04/20 04:37 Other Labs: Lab Results x24hrs 09/04/20 09/04/20 09/03/20 Range/Units 04:37 04:37 18:56 WBC 11.1 H (4.8-10.8) x10^3/uL RBC 3.65 L (4.70-6.10) 10^6/uL Hgb 9.3 L (14.0-18.0) g/dL Hct 29.1 L (42.0-52.0) % MCV 79.7 L (80.0-94.0) fL MCH 25.5 L (27.0-31.0) pg MCHC 32.0 (32.0-36.0) g/dL RDW 15.1 H (12.0-15.0) % Plt Count 467 H (130-450) 10^3/uL MPV 8.3 (7.4-11.4) fL Neut # (Auto) 8.5 H (1.5-6.6) 10^3/uL Lymph # (Auto) 1.4 L (1.5-3.5) 10^3/uL [place] # (Auto) 1.0 (0.0-1.0) 10^3/uL Eos # (Auto) 0.1 (0.0-0.7) 10^3/uL Baso # (Auto) 0.0 (0.0-0.1) 10^3/uL Absolute Nucleated RBC 0.00 x10^3/uL Nucleated RBC % 0.0 /100WBC Sodium 128 L 127 L (135-145) mmol/L Potassium 3.6 4.1 (3.5-5.0) mmol/L Chloride 95 L 93 L (101-111) mmol/L Carbon Dioxide 23 26 (21-32) mmol/L Anion Gap 10.0 8.0 (6-13) BUN 9 12 (6-20) mg/dL Creatinine 0.7 0.7 (0.6-1.2) mg/dL Estimated GFR (MDRD) 116 116 (>89) Glucose 129 H 148 H (70-100) mg/dL Calcium 8.5 7.9 L (8.5-10.3) mg/dL Phosphorus 2.9 (2.5-4.6) mg/dL Magnesium 2.1 (1.7-2.8) mg/dL C-Reactive Protein 19.3 H (0-1.0) mg/dL ABX Reporting Has patient been on IV antibiotics over the past 48 hours?: Yes Sepsis Event Note (H) - Evaluation Current Stage of Sepsis: Ruled out Assessment/Plan - Problem List (1) Gangrene of right lower extremity due to atherosclerosis Impression: Clinically he appears slightly improved since admission. His CRP is beginning to increase and his white count is slightly increased as well today. He has been on IV vancomycin and cefepime for the surrounding cellulitis. Unfortunately, this limb is not salvageable and the plan will be for right above-knee amputation tomorrow with orthopedic surgery. He will be n.p.o. at midnight. We will keep him on the IV antibiotics for the time being. (2) Cellulitis of right lower extremity Impression: This appears improved overall but his white count is slightly increased today as well as his CRP. We will keep him on vancomycin and cefepime IV and the plan is for above-knee amputation tomorrow with orthopedic surgery. Today is day 4 of antibiotics. (3) Hyponatremia Impression: His sodium is stable at 128. This was initially felt to be hypovolemic hyponatremia despite his lower extremity edema. This did improve with IV fluids. Given his stable sodium and he is asymptomatic, will discontinue IV fluids and monitor for time being. (4) PAD (peripheral artery disease) Impression: This is unfortunate unamenable to intervention and is the cause of the gangrene of his right lower extremity. The plan will be for a right above-knee amputation tomorrow with orthopedic surgery. (5) Pancreatic mass Impression: He has declined further work-up of this in the past. We did obtain a CA 19-9 which is within normal limits. We have recommended outpatient follow-up with his primary care provider. (6) HTN (hypertension) Impression: His blood pressure is poorly controlled today with systolic in the 160s. He has been receiving carvedilol and losartan. We will add amlodipine for blood pressure control. We will hold off on a thiazide given his hyponatremia. Qualifiers: Hypertension type: essential hypertension Qualified Code(s): I10 - Essen tial (primary) hypertension (7) COPD (chronic obstructive pulmonary disease) Impression: Stable and not in exacerbation. We will continue with albuterol as needed. (8) Iron deficiency anemia Impression: He has been started on oral iron supplementation. His hemoglobin is stable without evidence of bleeding.
[2020-09-04] MEDS: amLODIPine 5 MG TABLET PO SCH (11:28)
[2020-09-04] MEDS: oxyCODONE 5 MG TABLET PO PRN ×3 (12:01→20:13)
--- NOTE | 2020-09-04 12:02 | PROVIDER PROGRESS NOTE ---
Subjective - General Admit Date: 09/01/20 - Review of Systems Wound/Incisions: positive: Drainage (decreasing, no subucutaneous gas), Erythema improving General: positive: No symptoms. negative: Other (Occasional burning right leg, lower portion) Musculoskeletal: negative: Other (Gangrene right leg, swelling and cellulitis improved) Psychiatric: positive: Mood lability. negative: Agitation (He has less anxiety and agitation today) - Other Other Information/Narrative: His mood is improved today. His anxiety is less. His pain is under reasonably good control. He does note some burning to the right lower extremity. He has been a nonprosthetic user for the left leg and has been wheelchair-bound. Objective - Patient Data Vital Signs: Vital Signs x48h Temp Pulse Resp BP Pulse Ox 09/04/20 11:22 36.5 C 90 18 154/67 H 98 09/04/20 07:38 36.7 C 95 18 177/78 H 97 Intake & Output: Intake and Output Totals x24h 09/02/20 09/03/20 09/04/20 23:59 23:59 23:59 Intake Total 5643.333 6453.333 2689.667 Output Total 3450 6550 2950 Balance 2193.333 -96.667 -260.333 - Lab Results Lab Results: 09/04/20 04:37 09/04/20 04:37 Other Lab Results: Lab Results x24hrs 09/04/20 09/04/20 09/03/20 Range/Units 04:37 04:37 18:56 WBC 11.1 H (4.8-10.8) x10^3/uL RBC 3.65 L (4.70-6.10) 10^6/uL Hgb 9.3 L (14.0-18.0) g/dL Hct 29.1 L (42.0-52.0) % MCV 79.7 L (80.0-94.0) fL MCH 25.5 L (27.0-31.0) pg MCHC 32.0 (32.0-36.0) g/dL RDW 15.1 H (12.0-15.0) % Plt Count 467 H (130-450) 10^3/uL MPV 8.3 (7.4-11.4) fL Neut # (Auto) 8.5 H (1.5-6.6) 10^3/uL Lymph # (Auto) 1.4 L (1.5-3.5) 10^3/uL [place] # (Auto) 1.0 (0.0-1.0) 10^3/uL Eos # (Auto) 0.1 (0.0-0.7) 10^3/uL Baso # (Auto) 0.0 (0.0-0.1) 10^3/uL Absolute Nucleated RBC 0.00 x10^3/uL Nucleated RBC % 0.0 /100WBC Sodium 128 L 127 L (135-145) mmol/L Potassium 3.6 4.1 (3.5-5.0) mmol/L Chloride 95 L 93 L (101-111) mmol/L Carbon Dioxide 23 26 (21-32) mmol/L Anion Gap 10.0 8.0 (6-13) BUN 9 12 (6-20) mg/dL Creatinine 0.7 0.7 (0.6-1.2) mg/dL Estimated GFR (MDRD) 116 116 (>89) Glucose 129 H 148 H (70-100) mg/dL Calcium 8.5 7.9 L (8.5-10.3) mg/dL Phosphorus 2.9 (2.5-4.6) mg/dL Magnesium 2.1 (1.7-2.8) mg/dL C-Reactive Protein 19.3 H (0-1.0) mg/dL - Current Medications Current Medications: Current Medications Generic Name Dose Route Start Last Admin Trade Name [place] PRN Reason Stop Dose Admin Acetaminophen 650 mg 09/01/20 18:51 09/03/20 08:53 Acetaminophen 325 Mg Tablet PO 650 mg Q4HR PRN Administration Pain 1 to 4 Albuterol/Ipratropium 3 ml 09/03/20 13:54 09/04/20 01:12 Ipratropium/Albuterol 3 Ml Neb INH 3 ml Q4HR PRN Administration Wheezing Amlodipine Besylate 5 mg 09/04/20 11:00 09/04/20 11:28 Amlodipine 5 Mg Tablet PO 5 mg DAILY ASH Administration Carvedilol 25 mg 09/01/20 21:00 09/04/20 08:15 Carvedilol 12.5 Mg Tablet PO 25 mg BID ASH Administration Ferrous Gluconate 324 mg 09/02/20 08:00 09/04/20 08:15 Ferrous Gluconate 324 Mg Tablet PO 324 mg DAILYWM ASH Administration Cefepime HCl 2 gm/ Sodium 100 mls @ 200 mls/hr 09/01/20 21:00 09/04/20 08:52 Chloride IV Infused BID ASH Infusion Vancomycin HCl 1 gm/ 250 mls @ 166.667 mls/hr 09/02/20 13:00 09/04/20 06:05 Vancomycin HCl 250 mg/ Sodium IV Infused Chloride Q8H ASH Infusion Lidocaine 1 applic 09/02/20 14:23 09/03/20 17:44 Lidocaine Ointment 5% 35.44 Gm Tube TOP 1 applic DAILY PRN Administration DRESSING CHANGES Losartan Potassium 100 mg 09/02/20 09:00 09/04/20 08:14 Losartan 50 Mg Tablet PO 100 mg DAILY ASH Administration Morphine Sulfate 2 mg 09/01/20 18:51 09/03/20 06:03 Morphine 2 Mg/Ml Carpuject IVP 2 mg Q2HR PRN Administration Pain 8 to 10 Multi-Ingredient Ointment 1 applic 09/01/20 22:27 09/03/20 17:44 Zinc Oxide 20% Oint 30 Gm Tube TOP 1 applic PRN PRN Administration Skin Care Multivitamins/Minerals 1 tab 09/02/20 08:00 09/04/20 08:15 Multivitamin W/Minerals Tablet PO 1 tab DAILYWM ASH Administration Nicotine 1 patch 09/03/20 09:00 09/04/20 08:16 Nicotine 21 Mg Patch TOP 1 patch DAILY ASH Administration Ondansetron HCl 4 mg 09/01/20 18:51 09/04/20 08:19 Ondansetron 4 Mg/2 Ml Vial IVP 4 mg Q6HR PRN Administration Nausea / Vomiting Oxycodone HCl 5 mg 09/01/20 18:51 09/03/20 22:39 Oxycodone 5 Mg Tablet PO 5 mg Q4HR PRN Administration Pain 5 to 7 Saccharomyces Boulardii 250 mg 09/02/20 08:00 09/04/20 08:15 Saccharomyces Boulardii 250 Mg Capsule PO 250 mg BIDWM ASH Administration Sodium Chloride 10 ml 09/02/20 01:00 09/04/20 08:16 Sodium Chloride Flush 0.9% 10 Ml Syringe IVP Not Given 0100,0900,1700 ASH - Physical Exam Wound/Incisions: negative: Other (No change) General Appearance: positive: No acute distress Extremities: negative: Other (No change) Neurologic/Psychiatric: positive: Oriented x3, Motor nml Impression/Plan - Problem List Problem List: Gangrene right lower extremity secondary to severe peripheral vascular disease Plan: He is scheduled for an above-knee amputation right leg tomorrow. I discussed the risk, goals and likelihood of achieving goals, alternatives and consequences, disability and . Because of his peripheral vascular disease he is at increased risk for vascular complications including myocardial infarction, cerebrovascular accident, pulmonary embolus, hemorrhage at operative site, infection, wound dehiscence, adverse reaction to medication or anesthesia. His chances of ambulating are extremely poor; most likely will be permanently wheelchair-bound. He is in agreement to the surgery. He has signed informed consent. A similar procedure to the right leg is being performed tomorrow as was done to his left leg in the past. His overall medical condition is stable.
[2020-09-04 12:44] LABS: VANCOMYCIN,TROUGH 31.8 ug/mL (10.0-20.0)
--- NOTE | 2020-09-04 13:08 | PHARMACY PROGRESS NOTE ---
- Therapy Status Vancomycin regimen day #: 4 Therapy status: Trough supratherapeutic Basis for treatment: Empirical Treatment indication: CELLULITIS Trough goal: 15-20 Concurrent antibiotics: CEFEPIME - HEENA Risk Risk level for Acute Kidney Injury: Low Acute Kidney Injury risk factors: Goal trough >15 - Monitoring and Recommendation Clinical response to treatment: I&O Previous 24 hours 09/02/20 09/03/20 09/04/20 23:59 23:59 23:59 Intake Total 5643.333 6453.333 2689.667 Output Total 3450 6550 2950 Balance 2193.333 -96.667 -260.333 Lab Results 09/04/20 09/03/20 09/03/20 04:37 18:56 04:35 ESR BUN 9 12 6 Creatinine 0.7 0.7 0.7 Estimated GFR (MDRD) 116 116 116 09/02/20 09/01/20 09/01/20 04:46 17:36 17:36 ESR 110 H BUN 5 L < 5 L Creatinine 0.6 0.6 Estimated GFR (MDRD) 139 139 Vancomycin Monitoring 09/04/20 12:11 Vancomycin Trough 31.8 H* Cultures 09/01/20 17:36 Blood Blood Culture - Preliminary NO GROWTH AFTER 2 DAYS 09/01/20 17:36 Blood Blood Culture - Preliminary NO GROWTH AFTER 2 DAYS Monitoring plan: Daily serum creatinine Next trough due prior to maintenance dose #: 4 Next trough due (date/time): 09/06 AT 1130 Areas for additional monitoring: IV to PO when appropriate Pharmacy recommendation: Decrease dose (Trough of 31.8 far over the kinetic modeling prediction of 18. Pt's renal function has been stable. I will hold the dose till midnight then restart at 1 gram iv q12h. Surgery planned for 09/05.)
[2020-09-04] MEDS: CALCIUM CARBONATE CHEW 500 MG TABLET PO PRN (20:05)
[2020-09-04] MEDS: SODIUM CHLORIDE FLUSH 0.9% 10 ML SYRINGE IVP PRN (20:07)
[2020-09-05] MEDS: oxyCODONE 5 MG TABLET PO PRN ×4 (00:26→20:22)
[2020-09-05] MEDS: CALCIUM CARBONATE CHEW 500 MG TABLET PO PRN ×2 (00:45→08:33)
[2020-09-05] MEDS: VANCOMYCIN INJ 1 GM in SODIUM CHLORIDE 0.9% 250 ML IV SCH ×2 (00:47→12:02)
[2020-09-05] MEDS: SODIUM CHLORIDE FLUSH 0.9% 10 ML SYRINGE IVP SCH ×3 (00:53→18:43)
[2020-09-05] MEDS: LACTATED RINGERS 1,000 ML IV SCH ×2 (02:14→18:36)
[2020-09-05] MEDS: MORPHINE 2 MG/ML CARPUJECT IVP PRN ×2 (04:15→22:52)
[2020-09-05] MEDS: ACETAMINOPHEN 325 MG TABLET PO PRN ×2 (05:15→12:11)
[2020-09-05 05:36] LABS: BASOPHILS # (AUTO) 0.1 10^3/uL (0.0-0.1); BASOPHILS % (AUTO) 0.4 %; EOSINOPHILS # (AUTO) 0.1 10^3/uL (0.0-0.7); EOSINOPHILS % (AUTO) 0.8 %; HCT - HEMATOCRIT 29.7 % (42.0-52.0); HGB - HEMOGLOBIN 9.4 g/dL (14.0-18.0); LYMPHOCYTES # (AUTO) 1.7 10^3/uL (1.5-3.5); LYMPHOCYTES % (AUTO) 12.6 %; MEAN CORPUSCULAR HEMOGLOBIN 24.9 pg (27.0-31.0); MEAN CORPUSCULAR HGB CONC 31.6 g/dL (32.0-36.0); MEAN CORPUSCULAR VOLUME 78.8 fL (80.0-94.0); MEAN PLATELET VOLUME 8.2 fL (7.4-11.4); MONOCYTES # (AUTO) 1.1 10^3/uL (0.0-1.0); MONOCYTES % (AUTO) 8.3 %; NEUTROPHILS # (AUTO) 10.2 10^3/uL (1.5-6.6); NEUTROPHILS % (AUTO) 76.5 %; PLT - PLATELET COUNT 511 10^3/uL (130-450); RED BLOOD COUNT 3.77 10^6/uL (4.70-6.10); RED CELL DISTRIBUTION WIDTH 15.2 % (12.0-15.0); WHITE BLOOD COUNT 13.3 x10^3/uL (4.8-10.8)
[2020-09-05 05:53] LABS: CALCIUM 8.9 mg/dL (8.5-10.3); CREATININE 0.8 mg/dL (0.6-1.2); CRP - C-REACTIVE PROTEIN 17.6 mg/dL (0-1.0); MAGNESIUM 2.2 mg/dL (1.7-2.8); PHOSPHORUS 3.6 mg/dL (2.5-4.6); POTASSIUM 4.2 mmol/L (3.5-5.0)
[2020-09-05] MEDS: carvediloL 12.5 MG TABLET PO SCH ×2 (08:20→20:22)
[2020-09-05] MEDS: FERROUS GLUCONATE 324 MG TABLET PO SCH (08:20)
[2020-09-05] MEDS: MULTIVITAMIN W/MINERALS TABLET PO SCH (08:20)
[2020-09-05] MEDS: SACCHAROMYCES BOULARDII 250 MG CAPSULE PO SCH ×2 (08:20→19:00)
[2020-09-05] MEDS: LOSARTAN 50 MG TABLET PO SCH (08:27)
[2020-09-05] MEDS: CEFEPIME 2 GM in SODIUM CHLORIDE 0.9% MINIBAG 100 ML IV SCH (08:28)
[2020-09-05] MEDS: amLODIPine 5 MG TABLET PO SCH (08:28)
[2020-09-05] MEDS: NICOTINE 21 MG PATCH TOP SCH (08:29)
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
[2020-09-05] MEDS: SODIUM CHLORIDE FLUSH 0.9% 10 ML SYRINGE IVP PRN (12:04)
--- NOTE | 2020-09-05 13:26 | PROVIDER PROGRESS NOTE ---
Subjective - Prog Note Date Prog Note Date: 09/05/20 - Subjective Subjective: He reports doing well today. He states his pain is controlled. Looking forward to surgery and to beginning his road to recovery. Current Medications - Current Medications Current Medications: Active Medications Acetaminophen (Acetaminophen 325 Mg Tablet) 650 mg PO Q4HR PRN PRN Reason: Pain 1 to 4 Last Admin: 09/05/20 12:11 Dose: 650 mg Documented by: Albuterol (Albuterol Neb 2.5 Mg/3 Ml) 2.5 mg INH RTQ4H PRN PRN Reason: Wheezing Albuterol/Ipratropium (Ipratropium/Albuterol 3 Ml Neb) 3 ml INH RTQID ASH Amlodipine Besylate (Amlodipine 5 Mg Tablet) 5 mg PO DAILY [facility] Last Admin: 09/05/20 08:28 Dose: 5 mg Documented by: Atropine Sulfate (Atropine Abboject 1 Mg/10 Ml Syringe) 0.5 mg IVP Q5M PRN PRN Reason: Bradycardia Stop: 09/06/20 13:32 Calcium Carbonate/Glycine (Calcium Carbonate Chew 500 Mg Tablet) 500 mg PO TID PRN PRN Reason: Heartburn Last Admin: 09/05/20 08:33 Dose: 500 mg Documented by: Carvedilol (Carvedilol 12.5 Mg Tablet) 25 mg PO BID [facility] Last Admin: 09/05/20 08:20 Dose: 25 mg Documented by: Ephedrine Sulfate (Ephedrine 50 Mg/Ml Vial) 10 mg IVP Q5M PRN PRN Reason: HYPOTENSION Stop: 09/06/20 13:32 Fentanyl (Fentanyl 100 Mcg/2 Ml Vial) 25 - 50 mcg IVP Q5M PRN PRN Reason: BREAKTHROUGH PAIN (2nd Choice) Stop: 09/06/20 13:32 Ferrous Gluconate (Ferrous Gluconate 324 Mg Tablet) 324 mg PO DAILYWM [facility] Last Admin: 09/05/20 08:20 Dose: 324 mg Documented by: Hydromorphone HCl (Hydromorphone 0.5 Mg/0.5 Ml Syringe) 0.2 - 0.6 mg IVP Q5M PRN PRN Reason: PAIN (First Choice) Stop: 09/06/20 13:32 Cefepime HCl 2 gm/ Sodium (Chloride) 100 mls @ 200 mls/hr IV BID [facility] Last Infusion: 06/14/21 08:59 Dose: Infused Documented by: Vancomycin HCl 1 gm/ Sodium (Chloride) 250 mls @ 167 mls/hr IV Q12H [facility] Last Infusion: 09/05/20 13:51 Dose: Infused Documented by: Lactated Ringer's (Lr) 1,000 mls @ 83.333 mls/hr IV .Q12H [facility] Last Infusion: 09/05/20 13:47 Dose: 83.333 mls/hr Documented by: Lactated Ringer's (Lr) 1,000 mls @ 100 mls/hr IV .Q10H [facility] Stop: 09/05/20 23:59 Lactulose (Lactulose 10 Gm /15 Ml Udc) 200 gm [place] ONCE [facility] Lidocaine (Lidocaine Ointment 5% 35.44 Gm Tube) 1 applic TOP DAILY PRN PRN Reason: DRESSING CHANGES Last Admin: 09/03/20 17:44 Dose: 1 applic Documented by: Losartan Potassium (Losartan 50 Mg Tablet) 100 mg PO DAILY [facility] Last Admin: 09/05/20 08:27 Dose: 100 mg Documented by: Metoclopramide HCl (Metoclopramide 10 Mg/2 Ml Vial) 10 mg IVP Q6HR PRN PRN Reason: N/V not relieved by Zofran Morphine Sulfate (Morphine 2 Mg/Ml Carpuject) 2 mg IVP Q2HR PRN PRN Reason: Pain 8 to 10 Last Admin: 09/05/20 04:15 Dose: 2 mg Documented by: Morphine Sulfate (Morphine 2 Mg/Ml Carpuject) 2 - 4 mg IVP Q5M PRN PRN Reason: PAIN (3rd Choice) Stop: 09/06/20 13:32 Multi-Ingredient Ointment (Zinc Oxide 20% Oint 30 Gm Tube) 1 applic TOP PRN PRN PRN Reason: Skin Care Last Admin: 09/03/20 17:44 Dose: 1 applic Documented by: Multivitamins/Minerals (Multivitamin W/Minerals Tablet) 1 tab PO DAILYWM [facility] Last Admin: 09/05/20 08:20 Dose: 1 tab Documented by: Naloxone HCl (Naloxone 0.4 Mg/Ml Vial) 0.1 mg IVP Q2M PRN PRN Reason: RESP RATE <8 Stop: 09/06/20 13:32 Nicotine (Nicotine 21 Mg Patch) 1 patch TOP DAILY [facility] Last Admin: 09/05/20 08:29 Dose: 1 patch Documented by: Ondansetron HCl (Ondansetron 4 Mg/2 Ml Vial) 4 mg IVP Q6HR PRN PRN Reason: Nausea / Vomiting Last Admin: 09/04/20 08:19 Dose: 4 mg Documented by: Ondansetron HCl (Ondansetron Odt 4 Mg Tablet) 4 mg TL Q6HR PRN PRN Reason: Nausea / Vomiting Ondansetron HCl (Ondansetron 4 Mg/2 Ml Vial) 4 mg IVP ONCE PRN PRN Reason: N/V (First Choice) Stop: 09/06/20 13:32 Oxycodone HCl (Oxycodone 5 Mg Tablet) 5 mg PO Q4HR PRN PRN Reason: Pain 5 to 7 Last Admin: 09/05/20 12:12 Dose: 5 mg Documented by: Saccharomyces Boulardii (Saccharomyces Boulardii 250 Mg Capsule) 250 mg PO BIDWM [facility] Last Admin: 09/05/20 08:20 Dose: 250 mg Documented by: Sodium Chloride (Sodium Chloride Flush 0.9% 10 Ml Syringe) 10 ml IVP PRN PRN PRN Reason: NEEDED PER PROVIDER ORDERS Last Admin: 09/05/20 12:04 Dose: 10 ml Documented by: Sodium Chloride (Sodium Chloride Flush 0.9% 10 Ml Syringe) 10 ml IVP 0100,0900,1700 [facility] Last Admin: 09/05/20 02:14 Dose: 10 ml Documented by: Losartan Potassium [Cozaar] 1 tablet PO DAILY 08/25/20 cilostazoL [Cilostazol] 50 mg PO BID 08/25/20 Aspirin [[place] Aspirin] 81 mg PO DAILY 09/01/20 Carvedilol [Coreg] 25 mg PO BID 09/01/20 Objective - Vital Signs/Intake & Output Reviewed Vital Signs: Yes Vital Signs: Vital Signs x48h Temp Pulse Resp BP BP Pulse Ox 09/05/20 12:25 36.8 C 90 18 150/86 H 97 09/05/20 09:00 36.6 C 96 16 149/84 H 96 09/05/20 05:27 100 164/84 H Intake & Output: Intake & Output 09/02/20 09/03/20 09/04/20 09/05/20 23:59 23:59 23:59 23:59 Intake Total 5643.333 6453.333 4939.667 1138.886 Output Total 9290 6581 6399 1522 Balance 2193.333 -96.667 -1435.333 -2236.114 - Objective General Appearance: positive: No acute distress, Alert Eyes Bilateral: positive: Normal inspection, Conjunctivae nml ENT: positive: ENT inspection nml Neck: positive: Nml inspection Respiratory: positive: No respiratory distress, Wheezes. negative: Rales Cardiovascular: positive: Regular rate & rhythm, No murmur. negative: Tachycardia Skin: positive: Warm, Dry, Other (Dressing is in place over the right lower extr emity.) Extremities: positive: Pedal edema (+1 edema in his right lower extremity) Neurologic/Psychiatric: negative: Disoriented to person, Disoriented to place - Lab Results Fish Bones: 09/05/20 05:18 09/05/20 05:18 Other Labs: Lab Results x24hrs 09/05/20 09/05/20 09/05/20 Range/Units 05:18 05:18 05:18 WBC 13.3 H (4.8-10.8) x10^3/uL RBC 3.77 L (4.70-6.10) 10^6/uL Hgb 9.4 L (14.0-18.0) g/dL Hct 29.7 L (42.0-52.0) % MCV 78.8 L (80.0-94.0) fL MCH 24.9 L (27.0-31.0) pg MCHC 31.6 L (32.0-36.0) g/dL RDW 15.2 H (12.0-15.0) % Plt Count 511 H (130-450) 10^3/uL MPV 8.2 (7.4-11.4) fL Neut # (Auto) 10.2 H (1.5-6.6) 10^3/uL Lymph # (Auto) 1.7 (1.5-3.5) 10^3/uL [place] # (Auto) 1.1 H (0.0-1.0) 10^3/uL Eos # (Auto) 0.1 (0.0-0.7) 10^3/uL Baso # (Auto) 0.1 (0.0-0.1) 10^3/uL Absolute Nucleated RBC 0.00 x10^3/uL Nucleated RBC % 0.0 /100WBC Sodium 129 L (135-145) mmol/L Potassium 4.2 (3.5-5.0) mmol/L Chloride 94 L (101-111) mmol/L Carbon Dioxide 23 (21-32) mmol/L Anion Gap 12.0 (6-13) BUN 13 (6-20) mg/dL Creatinine 0.8 (0.6-1.2) mg/dL Estimated GFR (MDRD) 100 (>89) Glucose 116 H (70-100) mg/dL Calcium 8.9 (8.5-10.3) mg/dL Phosphorus 3.6 (2.5-4.6) mg/dL Magnesium 2.2 (1.7-2.8) mg/dL C-Reactive Protein 17.6 H (0-1.0) mg/dL Blood Type A POSITIVE Blood Type Recheck Antibody Screen NEGATIVE 09/03/20 Range/Units 04:35 WBC (4.8-10.8) x10^3/uL RBC (4.70-6.10) 10^6/uL Hgb (14.0-18.0) g/dL Hct (42.0-52.0) % MCV (80.0-94.0) fL MCH (27.0-31.0) pg MCHC (32.0-36.0) g/dL RDW (12.0-15.0) % Plt Count (130-450) 10^3/uL MPV (7.4-11.4) fL Neut # (Auto) (1.5-6.6) 10^3/uL Lymph # (Auto) (1.5-3.5) 10^3/uL [place] # (Auto) (0.0-1.0) 10^3/uL Eos # (Auto) (0.0-0.7) 10^3/uL Baso # (Auto) (0.0-0.1) 10^3/uL Absolute Nucleated RBC x10^3/uL Nucleated RBC % /100WBC Sodium (135-145) mmol/L Potassium (3.5-5.0) mmol/L Chloride (101-111) mmol/L Carbon Dioxide (21-32) mmol/L Anion Gap (6-13) BUN (6-20) mg/dL Creatinine (0.6-1.2) mg/dL Estimated GFR (MDRD) (>89) Glucose (70-100) mg/dL Calcium (8.5-10.3) mg/dL Phosphorus (2.5-4.6) mg/dL Magnesium (1.7-2.8) mg/dL C-Reactive Protein (0-1.0) mg/dL Blood Type Blood Type Recheck A POSITIVE Antibody Screen ABX Reporting Has patient been on IV antibiotics over the past 48 hours?: Yes Sepsis Event Note (H) - Evaluation Current Stage of Sepsis: Ruled out Assessment/Plan - Problem List (1) 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 He remains on vancomycin cefepime IV for the surrounding cellulitis. The plan is to go to the OR today for an above-knee amputation. We will continue IV antibiotics postoperatively for the time being. We will continue his current pain control regimen and this may need to be adjusted postoperatively. He will need spirometry use to decrease risk of pneumonia. (2) Cellulitis of right lower extremity Impression: This is improving. He remains on vancomycin and cefepime IV. We will continue IV antibiotics as mentioned above postoperatively for the time being. Today is day 5 of antibiotics. (3) Hyponatremia Impression: Slightly improved today at 129. This is stable overall and he does appear to be chronically hyponatremic. We will continue to monitor. (4) PAD (peripheral artery disease) Impression: This is the cause of his right lower extremity infection. Unfortunately not a candidate for intervention. We will resume his aspirin and cilostazol postoperatively. (5) Pancreatic mass Impression: He declined further work-up of this in the past. CA 19-9 is within normal limits. He will need to follow-up outpatient with his primary care provider. (6) HTN (hypertension) Impression: His blood pressure has been elevated with systolic in the 150s. We did add amlodipine yesterday which she will continue. Continue losartan and carvedilol. If he remains hypertensive we can uptitrate his amlodipine. Qualifiers: Hypertension type: essential hypertension Qualified Code(s): I10 - Essential (primary) hypertension (7) COPD (chronic obstructive pulmonary disease) Impression: He does have mild aspiratory wheezes on exam. Overall he is not appear to be in exacerbation. We will place him on DuoNebs 4 times daily and albuterol as needed postoperatively to reduce his risk of exacerbation postoperatively. (8) Iron deficiency anemia Impression: Stable without evidence of bleeding. Continue iron supplementation.
[2020-09-05] MEDS ORDERED: METOCLOPRAMIDE 10 MG/2 ML VIAL IVP PRN (13:32)
[2020-09-05] MEDS ORDERED: ePHEDrine 50 MG/ML VIAL IVP PRN (13:32)
[2020-09-05] MEDS ORDERED: HYDROmorphone 0.5 MG/0.5 ML SYRINGE IVP PRN (13:32)
[2020-09-05] MEDS ORDERED: fentaNYL 100 MCG/2 ML VIAL IVP PRN (13:32)
[2020-09-05] MEDS ORDERED: ONDANSETRON 4 MG/2 ML VIAL IVP PRN (13:32)
[2020-09-05] MEDS ORDERED: NALOXONE 0.4 MG/ML VIAL IVP PRN (13:32)
[2020-09-05] MEDS ORDERED: MORPHINE 2 MG/ML CARPUJECT IVP PRN (13:32)
[2020-09-05] MEDS ORDERED: ATROPINE ABBOJECT 1 MG/10 ML SYRINGE IVP PRN (13:32)
[2020-09-05] MEDS ORDERED: LACTATED RINGERS 1,000 ML IV SCH (14:00)
[2020-09-05] MEDS ORDERED: ALBUTEROL NEB 2.5 MG/3 ML INH PRN (14:07)
[2020-09-05] MEDS ORDERED: ROCURONIUM 50 MG/5 ML VIAL ONE (14:27)
[2020-09-05] MEDS ORDERED: LIDOCAINE-MPF 2% 5 ML VIAL ONE (14:27)
[2020-09-05] MEDS ORDERED: PROPOFOL 200 MG/20 ML VIAL IVP ONE (14:27)
[2020-09-05] MEDS ORDERED: DEXAMETHASONE 4 MG/ML VIAL ONE (14:27)
[2020-09-05] MEDS ORDERED: ROPIVACAINE 0.5% PF 20 ML AMPULE ONE (14:27)
[2020-09-05] MEDS ORDERED: LACTULOSE 10 GM/15 ML BOTTLE PR SCH (15:00)
[2020-09-05] MEDS: IPRATROPIUM/ALBUTEROL 3 ML NEB INH SCH ×2 (15:38→22:19)
[2020-09-05] MEDS ORDERED: PHENYLEPHRINE 10 MG/ML VIAL ONE (15:43)
[2020-09-05] MEDS ORDERED: BACITRACIN ZINC OINT 14 GM TOP ONE (15:47)
[2020-09-05] MEDS ORDERED: BACITRACIN ZINC OINT 1 PACKET TOP ONE (15:57)
[2020-09-05] MEDS ORDERED: BUPIVACAINE 0.5%-EPI 1:200000 PF 30 ML VIAL ONE (16:16)
[2020-09-05] MEDS ORDERED: BUPIVACAINE 0.5%-EPI 1:200000 PF 30 ML VIAL SUBQ ONE (16:17)
[2020-09-05] MEDS ORDERED: LACTATED RINGERS 1,000 ML IV ONE (17:40)
--- NOTE | 2020-09-05 17:44 | OPERATIVE REPORT ---
Operative Report - General Admit Date: 09/01/20 Procedure Date: 09/05/20 Planned Procedure: Right above-knee amputation Pre-Op Diagnosis: Gangrene right lower extremity with infection secondary to severe periphera Procedure Performed: Right above-knee amputation Post Op Diagnosis: Same as preoperative diagnosis - Procedure Note Primary Surgeon: Andrew Liu MD Secondary Surgeon: Tony Brown MD Anesthesia Provider: James Medina CRNA Anesthesia Technique: General ET tube, Regional block Pathology: Amputated specimen sent to pathology Estimated Blood Loss (mL): 300 Indications: This is a 55-year-old with severe peripheral vascular disease. 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 He has had progressive pain with wound healing issues to the right lower extremity for the past several months leading to gangrene and soft tissue infection. He was admitted after referral from wound care to the hospital because of potential systemic sepsis. He had gangrene to the right lower extremity, previous failed vascular procedures, abnormal noninvasive vascular lab studies, absent pulses to her right ankle. He also has a flexion cont racture to right knee, most likely from being nonambulatory for the past year. He does not have diabetes. He is soft tissue infection was treated with broad- spectrum antibiotics. He is afebrile and stable currently and his white blood cell count is improved he has chronic anemia and chronic poor nutrition. He has a history of a pancreatic mass but this has not been fully Abdo he waited because the patient has refused. He was felt to be stable for surgery by our medical department without change in the past 24 hours. Findings: He had extensive gangrene to the right lower extremity involving the foot and up to about the mid calf. There is breakdown of necrotic tissue over the entire foot. The amputation site appeared viable although certainly with decreased vascularity. The muscle appeared to be very viable. There was edematous tissue in the subcutaneous tissue at the amputation site. There is no sign of infection at the amputation site. Complications: None - Other Other Information/Narrative: The patient was brought to the operating room and was given a femoral nerve block and a general endotracheal anesthetic. He was placed in a supine position with a towel to elevate the right buttock and hip; this is to allow hip extension. The right lower extremity was excluded from the operative field with plastic drapes and Coban. This is in addition to ABD sterile dressing beneath the occlusive dressing. A timeout procedure was performed by the entire operating room team and all were in agreement. The intended osteotomy was between 12 and 14 cm in the proximal skin incision started at approximately 12 cm above the knee joint with a long medial flap and a shorter lateral flap. A tourniquet was not utilized. Full-thickness myocutaneous skin flaps were developed. The quadriceps tendon was divided above the patella. The abductor carl tendon was released from the distal femur. The femoral nerve and artery were identified and ligated at the proposed osteotomy site with 0 silk suture using double silk ties. In the femur was identified at about 12 cm using a subperiosteal dissection of the abductor carl. An oscillating saw was used to divide the distal femur transversely using a malleable retractor beneath the femur to protect soft tissues. The femur was dissected distally. The hamstrings were divided with the gracilis and sartorius being somewhat longer than the biceps femoris. The sciatic nerve and its bifurcation were identified, injected with 10 cc of half percent Marcaine and ligated with 0 silk suture. The nerves were allowed to retract proximal to the osteotomy. A myodesis was performed with fiber tack Arthrex suture anchor and drill hole to reduce the abductor arm of the femur. The adductor Lupe was brought across the amputation site and sutured to bone laterally. The quadriceps tendon was sutured and advanced posteriorly and the hamstrings were then brought over the remaining muscle. The subcutaneous tissue was closed with 2-0 Vicryl. The skin was closed with stainless steel amita. Xeroform, fluffs, stockinette and a d ouble 6 inch Tulio hip spica dressing was applied. He has been on antibiotics prior to surgery, broad-spectrum including vancomycin. He tolerated procedure well. A physician assistant at surgery was utilized as a medical necessity to facilitate with exposure, ligation of vessels and wound closure.
[2020-09-05 18:04] LABS: HCT - HEMATOCRIT 25.6 % (42.0-52.0); HGB - HEMOGLOBIN 8.2 g/dL (14.0-18.0)
[2020-09-05] MEDS: ceFAZolin 2 GM/50 ML 2 GM/50 ML BAG IV SCH (20:29)
--- NOTE | 2020-09-05 21:45 | ANESTHESIA POST OP EVALUATION ---
Anesthesia Post Eval - Post Anesthesia Eval Vitals: Last Vital Signs Temp 36.4 C L 09/05/20 20:45 Pulse 97 09/05/20 20:45 Resp 16 09/05/20 20:45 BP 112/69 09/05/20 20:45 Pulse Ox 99 09/05/20 20:45 CV Function Including HR & BP: Stable Pain Control: Satisfactory Nausea & Vomiting: Negative Mental Status: Baseline Respiratory Status: Airway Patent Hydration Status: Satisfactory Anesthesia Complications: None
[2020-09-06] MEDS: SODIUM CHLORIDE FLUSH 0.9% 10 ML SYRINGE IVP SCH ×3 (04:47→16:53)
[2020-09-06] MEDS: ceFAZolin 2 GM/50 ML 2 GM/50 ML BAG IV SCH ×3 (05:29→21:16)
[2020-09-06 06:13] LABS: BASOPHILS % (AUTO) 0.2 %; EOSINOPHILS % (AUTO) 0.1 %; HCT - HEMATOCRIT 25.4 % (42.0-52.0); HGB - HEMOGLOBIN 7.8 g/dL (14.0-18.0); LYMPHOCYTES # (AUTO) 1.4 10^3/uL (1.5-3.5); LYMPHOCYTES % (AUTO) 6.8 %; MEAN CORPUSCULAR HEMOGLOBIN 24.6 pg (27.0-31.0); MEAN CORPUSCULAR HGB CONC 30.7 g/dL (32.0-36.0); MEAN CORPUSCULAR VOLUME 80.1 fL (80.0-94.0); MEAN PLATELET VOLUME 8.1 fL (7.4-11.4); MONOCYTES # (AUTO) 1.1 10^3/uL (0.0-1.0); MONOCYTES % (AUTO) 5.6 %; NEUTROPHILS # (AUTO) 17.2 10^3/uL (1.5-6.6); PLT - PLATELET COUNT 432 10^3/uL (130-450); RED BLOOD COUNT 3.17 10^6/uL (4.70-6.10); RED CELL DISTRIBUTION WIDTH 15.4 % (12.0-15.0)
[2020-09-06 06:30] LABS: CALCIUM 8.3 mg/dL (8.5-10.3); CREATININE 0.6 mg/dL (0.6-1.2); CRP - C-REACTIVE PROTEIN 16.6 mg/dL (0-1.0); PHOSPHORUS 4.9 mg/dL (2.5-4.6); POTASSIUM 3.8 mmol/L (3.5-5.0)
[2020-09-06] MEDS: LACTATED RINGERS 1,000 ML IV SCH ×3 (06:59→21:22)
[2020-09-06] MEDS: FERROUS GLUCONATE 324 MG TABLET PO SCH (07:46)
[2020-09-06] MEDS: SACCHAROMYCES BOULARDII 250 MG CAPSULE PO SCH ×2 (07:46→16:53)
[2020-09-06] MEDS: MULTIVITAMIN W/MINERALS TABLET PO SCH (07:46)
[2020-09-06] MEDS: IPRATROPIUM/ALBUTEROL 3 ML NEB INH SCH (08:00)
--- NOTE | 2020-09-06 08:21 | PROVIDER PROGRESS NOTE ---
Subjective - General Admit Date: 09/01/20 Procedure Date: 09/05/20 Post Op Days: 1 Procedure Performed: right above knee amputation - Review of Systems Wound/Incisions: positive: Dressing dry and intact. negative: Other (No change) General: positive: No symptoms. negative: Other (Occasional burning right leg, lower portion) Musculoskeletal: negative: Other (Gangrene right leg, swelling and cellulitis improved) Psychiatric: positive: Mood lability. negative: Agitation (He has less anxiety and agitation today) - Other Other Information/Narrative: His pain postop appears to be satisfactory controlled. He has been sleeping most of the night and seems to be resting comfortably. He denies chest pain, shortness of breath, nausea or vomiting. Objective - Patient Data Vital Signs: Vital Signs x48h Temp Pulse Resp BP Pulse Ox 09/06/20 05:15 37 C 72 20 115/61 97 Weight: Weight 09/04/20 09/05/20 09/06/20 23:59 23:59 23:59 Weight (kg) 82 kg Intake & Output: Intake and Output Totals x24h 09/04/20 09/05/20 09/06/20 23:59 23:59 23:59 Intake Total 4939.667 4834.879 8272.000 Output Total 6375 4075 950 Balance -1435.333 -2150.003 100.000 - Lab Results Lab Results: 09/06/20 05:59 09/06/20 05:59 Other Lab Results: Lab Results x24hrs 09/06/20 09/06/20 09/05/20 Range/Units 05:59 05:59 17:58 WBC 20.0 H (4.8-10.8) x10^3/uL RBC 3.17 L (4.70-6.10) 10^6/uL Hgb 7.8 L 8.2 L (14.0-18.0) g/dL Hct 25.4 L 25.6 L (42.0-52.0) % MCV 80.1 (80.0-94.0) fL MCH 24.6 L (27.0-31.0) pg MCHC 30.7 L (32.0-36.0) g/dL RDW 15.4 H (12.0-15.0) % Plt Count 432 (130-450) 10^3/uL MPV 8.1 (7.4-11.4) fL Neut # (Auto) 17.2 H (1.5-6.6) 10^3/uL Lymph # (Auto) 1.4 L (1.5-3.5) 10^3/uL [place] # (Auto) 1.1 H (0.0-1.0) 10^3/uL Eos # (Auto) 0.0 (0.0-0.7) 10^3/uL Baso # (Auto) 0.0 (0.0-0.1) 10^3/uL Absolute Nucleated RBC 0.00 x10^3/uL Nucleated RBC % 0.0 /100WBC Sodium 131 L (135-145) mmol/L Potassium 3.8 (3.5-5.0) mmol/L Chloride 96 L (101-111) mmol/L Carbon Dioxide 24 (21-32) mmol/L Anion Gap 11.0 (6-13) BUN 8 (6-20) mg/dL Creatinine 0.6 (0.6-1.2) mg/dL Estimated GFR (MDRD) 139 (>89) Glucose 126 H (70-100) mg/dL Calcium 8.3 L (8.5-10.3) mg/dL Phosphorus 4.9 H (2.5-4.6) mg/dL Magnesium 2.0 (1.7-2.8) mg/dL C-Reactive Protein 16.6 H (0-1.0) mg/dL - Current Medications Current Medications: Current Medications Generic Name Dose Route Start Last Admin Trade Name Ryanne PRN Reason Stop Dose Admin Acetaminophen 650 mg 09/01/20 18:51 09/05/20 12:11 Acetaminophen 325 Mg Tablet PO 650 mg Q4HR PRN Administration Pain 1 to 4 Albuterol/Ipratropium 3 ml 09/05/20 15:00 09/06/20 08:00 Ipratropium/Albuterol 3 Ml Neb INH 3 ml RTQID ASH Administration Amlodipine Besylate 5 mg 09/04/20 11:00 09/05/20 08:28 Amlodipine 5 Mg Tablet PO 5 mg DAILY ASH Administration Calcium Carbonate/Glycine 500 mg 09/04/20 19:40 09/05/20 08:33 Calcium Carbonate Chew 500 Mg Tablet PO 500 mg TID PRN Administration Heartburn Carvedilol 25 mg 09/01/20 21:00 09/05/20 20:22 Carvedilol 12.5 Mg Tablet PO 25 mg BID ASH Administration Ferrous Gluconate 324 mg 09/02/20 08:00 09/06/20 07:46 Ferrous Gluconate 324 Mg Tablet PO 324 mg DAILYWM ASH Administration Lactated Ringer's 1,000 mls @ 83.333 mls/hr 09/05/20 01:00 09/06/20 06:59 Lr IV 83.333 mls/hr .Q12H ASH Administration Cefazolin Sodium/Dextrose 2 gm in 50 mls @ 200 mls/hr 09/05/20 20:00 09/06/20 05:44 Ancef 2 Gm/50 Ml IV Infused Q8HR [facility] Infusion Lidocaine 1 applic 09/02/20 14:23 09/03/20 17:44 Lidocaine Ointment 5% 35.44 Gm Tube TOP 1 applic DAILY PRN Administration DRESSING CHANGES Losartan Potassium 100 mg 09/02/20 09:00 09/05/20 08:27 Losartan 50 Mg Tablet PO 100 mg DAILY ASH Administration Morphine Sulfate 2 mg 09/01/20 18:51 09/05/20 22:52 Morphine 2 Mg/Ml Carpuject IVP 2 mg Q2HR PRN Administration Pain 8 to 10 Multi-Ingredient Ointment 1 applic 09/01/20 22:27 09/03/20 17:44 Zinc Oxide 20% Oint 30 Gm Tube TOP 1 applic PRN PRN Administration Skin Care Multivitamins/Minerals 1 tab 09/02/20 08:00 09/06/20 07:46 Multivitamin W/Minerals Tablet PO 1 tab DAILYWM ASH Administration Nicotine 1 patch 09/03/20 09:00 09/05/20 08:29 Nicotine 21 Mg Patch TOP 1 patch DAILY ASH Administration Ondansetron HCl 4 mg 09/01/20 18:51 09/04/20 08:19 Ondansetron 4 Mg/2 Ml Vial IVP 4 mg Q6HR PRN Administration Nausea / Vomiting Oxycodone HCl 5 mg 09/01/20 18:51 09/05/20 20:22 Oxycodone 5 Mg Tablet PO 5 mg Q4HR PRN Administration Pain 5 to 7 Saccharomyces Boulardii 250 mg 09/02/20 08:00 09/06/20 07:46 Saccharomyces Zainabi 250 Mg Capsule PO 250 mg BIDWM ASH Administration Sodium Chloride 10 ml 09/01/20 18:51 09/05/20 12:04 Sodium Chloride Flush 0.9% 10 Ml Syringe IVP 10 ml PRN PRN Administration NEEDED PER PROVIDER ORDERS Sodium Chloride 10 ml 09/02/20 01:00 09/06/20 04:47 Sodium Chloride Flush 0.9% 10 Ml Syringe IVP Not Given 0100,0900,1700 ASH - Physical Exam Wound/Incisions: positive: Dressing dry and intact General Appearance: negative: No acute distress (He is stable, dressing dry and intact to right above-knee amputation) Impression/Plan - Problem List Problem List: Status post right above-knee amputation. He does have anemia both acute and chronic. I would recommend an additional day of antibiotics. Anticoagulation could begin with low-dose Lovenox 40 mg daily. He can do bed to chair transfers with physical or occupational therapy or both.
--- NOTE | 2020-09-06 08:41 | PROVIDER PROGRESS NOTE ---
Assessment/Plan - Problem List (1) Gangrene of right lower extremity due to atherosclerosis Assessment/Plan: He is POD #1 of AKA done yesterday by Ortho. His white count and CRP are still elevated today. We will continue IV Ancef antibiotics albin-operatively for the time being, as advised by ortho, but will stop Vanco since source of infection was amputated. We will continue his current pain control regimen postoperatively. Will order PT and OT to start today. He will need spirometry use to decrease risk of pneumonia. (2) Cellulitis of right lower extremity Impression: This was improving. He got several days of iv vancomycin and cefepime IV. We will continue IV antibiotics as mentioned above postoperatively for the time being. Today is day 6 of antibiotics. (3) Hyponatremia Impression: Slightly improved today. This is stable overall and he does appear to be chronically hyponatremic. Decrease iv rate, poss DC iv fluids tomorrow. We will continue to monitor BMP daily. (4) PAD (peripheral artery disease) Impression: This is the cause of his right lower extremity infection. Unfortunately not a candidate for intervention. We resumed his aspirin and cilostazol postoperatively. Smoking cessation would help. A Nicotine patch is ordered. (5) Pancreatic mass Impression: He declined further work-up of this in the past. CA 19-9 is within normal limits. He will need to follow-up outpatient with his primary care provider. (6) HTN (hypertension) Impression: His blood pressure was elevated with systolic in the 150s. We did start amlodipine and continued losartan and carvedilol. If he remains hypertensive we can uptitrate his amlodipine. Qualifiers: Hypertension type: essential hypertension Qualified Code(s): I10 - Essential (primary) hypertension (7) COPD (chronic obstructive pulmonary disease) Impression: He initially had mild respiratory wheezes on exam, none today. Overall he is not appear to be in exacerbation. He was placed him on DuoNebs scheduled 4 times daily and albuterol as needed postoperatively to reduce his risk of exacerbation postoperatively, but he notices no difference, per RT today. Will make nebs only prn. He will need spirometry use to decrease risk of pneumonia. (8) Iron deficiency anemia Impression: EBL was 300 cc during OR yesterday and Hgb dropped today on morning labs. Continue iron supplementation. Follow CBC daily. Transfuse if Hgb <7. (9) Tobacco user Smoking cessation would help his PAD. A Nicotine patch is ordered. - Current Meds Current Meds: Current Medications Generic Name Dose Route Start Last Admin Trade Name Ryanne PRN Reason Stop Dose Admin Acetaminophen 650 mg 09/01/20 18:51 09/05/20 12:11 Acetaminophen 325 Mg Tablet PO 650 mg Q4HR PRN Administration Pain 1 to 4 Albuterol/Ipratropium 3 ml 09/05/20 15:00 09/06/20 08:00 Ipratropium/Albuterol 3 Ml Neb INH 3 ml RTQID ASH Administration Amlodipine Besylate 5 mg 09/04/20 11:00 09/05/20 08:28 Amlodipine 5 Mg Tablet PO 5 mg DAILY ASH Administration Calcium Carbonate/Glycine 500 mg 09/04/20 19:40 09/05/20 08:33 Calcium Carbonate Chew 500 Mg Tablet PO 500 mg TID PRN Administration Heartburn Carvedilol 25 mg 09/01/20 21:00 09/05/20 20:22 Carvedilol 12.5 Mg Tablet PO 25 mg BID ASH Administration Ferrous Gluconate 324 mg 09/02/20 08:00 09/06/20 07:46 Ferrous Gluconate 324 Mg Tablet PO 324 mg DAILYWM ASH Administration Lactated Ringer's 1,000 mls @ 83.333 mls/hr 09/05/20 01:00 09/06/20 06:59 Lr IV 83.333 mls/hr .Q12H ASH Administration Cefazolin Sodium/Dextrose 2 gm in 50 mls @ 200 mls/hr 09/05/20 20:00 09/06/20 05:44 Ancef 2 Gm/50 Ml IV Infused Q8HR ASH Infusion Lidocaine 1 applic 09/02/20 14:23 09/03/20 17:44 Lidocaine Ointment 5% 35.44 Gm Tube TOP 1 applic DAILY PRN Administration DRESSING CHANGES Losartan Potassium 100 mg 09/02/20 09:00 09/05/20 08:27 Losartan 50 Mg Tablet PO 100 mg DAILY ASH Administration Morphine Sulfate 2 mg 09/01/20 18:51 09/05/20 22:52 Morphine 2 Mg/Ml Carpuject IVP 2 mg Q2HR PRN Administration Pain 8 to 10 Multi-Ingredient Ointment 1 applic 09/01/20 22:27 09/03/20 17:44 Zinc Oxide 20% Oint 30 Gm Tube TOP 1 applic PRN PRN Administration Skin Care Multivitamins/Minerals 1 tab 09/02/20 08:00 09/06/20 07:46 Multivitamin W/Minerals Tablet PO 1 tab DAILYWM ASH Administration Nicotine 1 patch 09/03/20 09:00 09/05/20 08:29 Nicotine 21 Mg Patch TOP 1 patch DAILY ASH Administration Ondansetron HCl 4 mg 09/01/20 18:51 09/04/20 08:19 Ondansetron 4 Mg/2 Ml Vial IVP 4 mg Q6HR PRN Administration Nausea / Vomiting Oxycodone HCl 5 mg 09/01/20 18:51 09/05/20 20:22 Oxycodone 5 Mg Tablet PO 5 mg Q4HR PRN Administration Pain 5 to 7 Saccharomyces Boulardii 250 mg 09/02/20 08:00 09/06/20 07:46 Saccharomyces Boulardii 250 Mg Capsule PO 250 mg BIDWM ASH Administration Sodium Chloride 10 ml 09/01/20 18:51 09/05/20 12:04 Sodium Chloride Flush 0.9% 10 Ml Syringe IVP 10 ml PRN PRN Administration NEEDED PER PROVIDER ORDERS Sodium Chloride 10 ml 09/02/20 01:00 09/06/20 04:47 Sodium Chloride Flush 0.9% 10 Ml Syringe IVP Not Given 0100,0900,1700 ASH - Lab Result Fish Bone Diagrams: 09/06/20 05:59 09/06/20 05:59 Subjective - Subjective Patient Reports: Pain (Wonders how to dress L stump with an old wound. Pain is starting in R stump. Wants iv site changed so he can bend wrist as he works with PT and OT for transfers.) Nursing Reports: Other (Per RN, he is not asking for pain meds until, the afternoon.) Objective Vital Signs: Vital Signs - 24 hr 09/05/20 09/05/20 09/05/20 09:00 12:25 17:40 Temperature 36.6 C 36.8 C 37.1 C Heart Rate 90 Heart Rate [ 96 90 Brachial] Respiratory 16 18 17 Rate Blood Pressure 104/60 Blood Pressure 149/84 H 150/86 H [Left Brachial artery] Blood Pressure [Right Brachial artery] O2 Saturation 96 97 100 09/05/20 09/05/20 09/05/20 17:45 17:50 17:55 Temperature 37.3 C 37.3 C 37.1 C Heart Rate 90 91 88 Heart Rate [ Brachial] Respiratory 18 18 15 Rate Blood Pressure 99/61 112/91 H 121/61 Blood Pressure [Left Brachial artery] Blood Pressure [Right Brachial artery] O2 Saturation 98 97 97 09/05/20 09/05/20 09/05/20 18:03 18:15 18:45 Temperature 37.1 C 36.6 C 36.6 C Heart Rate 90 Heart Rate [ 91 97 Brachial] Respiratory 13 20 16 Rate Blood Pressure 113/75 Blood Pressure [Left Brachial artery] Blood Pressure 112/85 H 117/76 [Right Brachial artery] O2 Saturation 97 95 94 09/05/20 09/05/20 09/05/20 20:45 22:22 22:45 Temperature 36.4 C L 36.7 C Heart Rate 84 Heart Rate [ 97 86 Brachial] Respiratory 16 20 20 Rate Blood Pressure Blood Pressure [Left Brachial artery] Blood Pressure 112/69 116/65 [Right Brachial artery] O2 Saturation 99 97 09/06/20 09/06/20 09/06/20 00:00 05:15 08:00 Temperature 37.2 C 37 C Heart Rate 97 Heart Rate [ 88 72 Brachial] Respiratory 18 20 16 Rate Blood Pressure Blood Pressure [Left Brachial artery] Blood Pressure 94/53 L 115/61 [Right Brachial artery] O2 Saturation 96 97 Oxygen O2 Source Room air I&O (Last 24 Hrs): Intake and Output Totals x24h 09/04/20 09/05/20 09/06/20 23:59 23:59 23:59 Intake Total 4939.667 7385.325 7616.000 Output Total 6375 4075 950 Balance -1435.333 -2150.003 100.000 General: Alert, Oriented x3 HEENT: Mucous membr. moist/pink Neck: Supple Neuro: Alert Cardiovascular: Regular rate Respiratory: No respiratory distress, Breath sounds nml Abdomen: Soft Extremities: Other (S/P bilat AKAs, left was amputated in 2019 and has dry surgical site w/ escahr at tip, R was amputated yesterday and is bandaged.) - Results Results: Laboratory Results WBC 20.0 x10^3/uL (4.8-10.8) H 09/06/20 05:59 RBC 3.17 10^6/uL (4.70-6.10) L 09/06/20 05:59 Hgb 7.8 g/dL (14.0-18.0) L 09/06/20 05:59 Hct 25.4 % (42.0-52.0) L 09/06/20 05:59 MCV 80.1 fL (80.0-94.0) 09/06/20 05:59 MCH 24.6 pg (27.0-31.0) L 09/06/20 05:59 MCHC 30.7 g/dL (32.0-36.0) L 09/06/20 05:59 RDW 15.4 % (12.0-15.0) H 09/06/20 05:59 Plt Count 432 10^3/uL (130-450) 09/06/20 05:59 MPV 8.1 fL (7.4-11.4) 09/06/20 05:59 Neut # (Auto) 17.2 10^3/uL (1.5-6.6) H 09/06/20 05:59 Lymph # (Auto) 1.4 10^3/uL (1.5-3.5) L 09/06/20 05:59 [place] # (Auto) 1.1 10^3/uL (0.0-1.0) H 09/06/20 05:59 Eos # (Auto) 0.0 10^3/uL (0.0-0.7) 09/06/20 05:59 Baso # (Auto) 0.0 10^3/uL (0.0-0.1) 09/06/20 05:59 Absolute Nucleated RBC 0.00 x10^3/uL 09/06/20 05:59 Nucleated RBC % 0.0 /100WBC 09/06/20 05:59 ESR 110 mm/Hr (0-20) H 09/01/20 17:36 PT 15.8 secs (9.9-12.6) H 09/01/20 17:36 INR 1.5 (0.8-1.2) H 09/01/20 17:36 APTT 30.3 secs (24.9-33.3) 09/01/20 17:36 Sodium 131 mmol/L (135-145) L 09/06/20 05:59 Potassium 3.8 mmol/L (3.5-5.0) 09/06/20 05:59 Chloride 96 mmol/L (101-111) L 09/06/20 05:59 Carbon Dioxide 24 mmol/L (21-32) 09/06/20 05:59 Anion Gap 11.0 (6-13) 09/06/20 05:59 BUN 8 mg/dL (6-20) 09/06/20 05:59 Creatinine 0.6 mg/dL (0.6-1.2) 09/06/20 05:59 Estimated GFR (MDRD) 139 (>89) 09/06/20 05:59 Glucose 126 mg/dL (70-100) H 09/06/20 05:59 Lactic Acid 0.8 mmol/L (0.5-2.2) 09/01/20 17:36 Calcium 8.3 mg/dL (8.5-10.3) L 09/06/20 05:59 Phosphorus 4.9 mg/dL (2.5-4.6) H 09/06/20 05:59 Magnesium 2.0 mg/dL (1.7-2.8) 09/06/20 05:59 Iron 20 ug/dL (45-182) L 09/01/20 17:36 TIBC 192 ug/dL (250-450) L 09/01/20 17:36 % Saturation 10 % (20-50) L 09/01/20 17:36 Transferrin 137 mg/dL (180-329) L 09/01/20 17:36 Ferritin 255.4 ng/mL (23.9-336.2) 09/01/20 17:36 Total Bilirubin 0.5 mg/dL (0.2-1.0) 09/01/20 17:36 AST 24 IU/L (10-42) 09/01/20 17:36 ALT 24 IU/L (10-60) 09/01/20 17:36 Alkaline Phosphatase 96 IU/L (42-121) 09/01/20 17:36 C-Reactive Protein 16.6 mg/dL (0-1.0) H 09/06/20 05:59 Total Protein 7.6 g/dL (6.7-8.2) 09/01/20 17:36 Albumin 2.7 g/dL (3.2-5.5) L 09/01/20 17:36 Globulin 4.9 g/dL (2.1-4.2) H 09/01/20 17:36 Albumin/Globulin Ratio 0.6 (1.0-2.2) L 09/01/20 17:36 Lipase 53 U/L (22-51) H 09/01/20 17:36 CA 19-9 Antigen 14 U/mL (<34) 09/01/20 17:31 Vitamin B12 306 pg/mL (180-914) 09/02/20 04:46 Urine Color YELLOW 09/01/20 17:20 Urine Clarity CLEAR (CLEAR) 09/01/20 17:20 Urine pH 7.5 PH (5.0-7.5) 09/01/20 17:20 Ur Specific [place] 1.015 (1.002-1.030) 09/01/20 17:20 Urine Protein NEGATIVE mg/dL (NEGATIVE) 09/01/20 17:20 Urine Glucose (UA) NEGATIVE mg/dL (NEGATIVE) 09/01/20 17:20 Urine Ketones NEGATIVE mg/dL (NEGATIVE) 09/01/20 17:20 Urine Occult Blood NEGATIVE (NEGATIVE) 09/01/20 17:20 Urine Nitrite NEGATIVE (NEGATIVE) 09/01/20 17:20 Urine Bilirubin NEGATIVE (NEGATIVE) 09/01/20 17:20 Urine Urobilinogen 0.2 (NORMAL) E.U./dL (NORMAL) 09/01/20 17:20 Ur Leukocyte Esterase NEGATIVE (NEGATIVE) 09/01/20 17:20 Ur Microscopic Review NOT INDICATED 09/01/20 17:20 Urine Culture Comments NOT INDICATED 09/01/20 17:20 Nasal Adenovirus (PCR) NOT DETECTED 09/01/20 19:19 Nasal B. parapertussis DNA (PCR) NOT DETECTED 09/01/20 19:19 Nasal Coronavir 229E PCR NOT DETECTED 09/01/20 19:19 Nasal Coronavir HKU1 PCR NOT DETECTED 09/01/20 19:19 Nasal Coronavir NL63 PCR NOT DETECTED 09/01/20 19:19 Nasal Coronavir OC43 PCR NOT DETECTED 09/01/20 19:19 Nasal Enterovir/Rhinovir PCR NOT DETECTED 09/01/20 19:19 Nasal Influenza B PCR NOT DETECTED 09/01/20 19:19 Nasal Influenza A PCR NOT DETECTED 09/01/20 19:19 Nasal Parainfluen 1 PCR NOT DETECTED 09/01/20 19:19 Nasal Parainfluen 2 PCR NOT DETECTED 09/01/20 19:19 Nasal Parainfluen 3 PCR NOT DETECTED 09/01/20 19:19 Nasal Parainfluen 4 PCR NOT DETECTED 09/01/20 19:19 Nasal RSV (PCR) NOT DETECTED 09/01/20 19:19 Nasal B.pertussis DNA PCR NOT DETECTED 09/01/20 19:19 Nasal C.pneumoniae (PCR) NOT DETECTED 09/01/20 19:19 Jhonny Human Metapneumo PCR NOT DETECTED 09/01/20 19:19 Nasal M.pneumoniae (PCR) NOT DETECTED 09/01/20 19:19 Nasal SARS-CoV-2 (PCR) NOT DETECTED 09/01/20 19:19 Last Dose Date 09/04/20 09/04/20 12:11 Last Dose Time 0630 09/04/20 12:11 Vancomycin Trough 31.8 ug/mL (10.0-20.0) H* 09/04/20 12:11 Blood Type A POSITIVE 09/05/20 05:18 Blood Type Recheck A POSITIVE 09/03/20 04:35 Antibody Screen NEGATIVE 09/05/20 05:18 Sepsis Event Note (H) - Evaluation Current Stage of Sepsis: Ruled out
[2020-09-06] MEDS: polyethylene glycoL 3350 17 GM PACKET PO SCH (10:28)
[2020-09-06] MEDS: ASPIRIN CHEW 81 MG TABLET PO SCH (10:31)
[2020-09-06] MEDS: LOSARTAN 50 MG TABLET PO SCH (10:31)
[2020-09-06] MEDS: SENNA 8.6 MG TABLET PO SCH (10:32)
[2020-09-06] MEDS: ENOXAPARIN 40 MG/0.4 ML SYRINGE SUBQ SCH (10:32)
[2020-09-06] MEDS: amLODIPine 5 MG TABLET PO SCH (10:32)
[2020-09-06] MEDS: DOCUSATE SODIUM 250 MG CAPSULE PO SCH (10:32)
[2020-09-06] MEDS: NICOTINE 21 MG PATCH TOP SCH (10:33)
[2020-09-06] MEDS: carvediloL 12.5 MG TABLET PO SCH ×2 (10:42→21:12)
[2020-09-06] MEDS: cilostazoL 100 MG TABLET PO SCH ×2 (10:42→21:12)
[2020-09-06] MEDS: diphenhydrAMINE 25 MG CAPSULE PO PRN (23:38)
[2020-09-07] MEDS: SODIUM CHLORIDE FLUSH 0.9% 10 ML SYRINGE IVP SCH ×4 (01:26→23:45)
[2020-09-07 05:04] LABS: BASOPHILS % (AUTO) 0.3 %; EOSINOPHILS # (AUTO) 0.1 10^3/uL (0.0-0.7); EOSINOPHILS % (AUTO) 0.9 %; HCT - HEMATOCRIT 22.6 % (42.0-52.0); HGB - HEMOGLOBIN 7.1 g/dL (14.0-18.0); LYMPHOCYTES % (AUTO) 15.8 %; MEAN CORPUSCULAR HEMOGLOBIN 25.1 pg (27.0-31.0); MEAN CORPUSCULAR HGB CONC 31.4 g/dL (32.0-36.0); MEAN CORPUSCULAR VOLUME 79.9 fL (80.0-94.0); MEAN PLATELET VOLUME 8.1 fL (7.4-11.4); MONOCYTES # (AUTO) 1.4 10^3/uL (0.0-1.0); MONOCYTES % (AUTO) 11.1 %; NEUTROPHILS # (AUTO) 8.7 10^3/uL (1.5-6.6); NEUTROPHILS % (AUTO) 70.4 %; PLT - PLATELET COUNT 396 10^3/uL (130-450); RED BLOOD COUNT 2.83 10^6/uL (4.70-6.10); RED CELL DISTRIBUTION WIDTH 15.3 % (12.0-15.0); WHITE BLOOD COUNT 12.4 x10^3/uL (4.8-10.8)
[2020-09-07] MEDS: ceFAZolin 2 GM/50 ML 2 GM/50 ML BAG IV SCH ×3 (05:07→21:22)
[2020-09-07 05:22] LABS: CALCIUM 7.8 mg/dL (8.5-10.3); CREATININE 0.6 mg/dL (0.6-1.2); CRP - C-REACTIVE PROTEIN 14.4 mg/dL (0-1.0); MAGNESIUM 1.9 mg/dL (1.7-2.8); PHOSPHORUS 2.9 mg/dL (2.5-4.6); POTASSIUM 3.5 mmol/L (3.5-5.0)
[2020-09-07] MEDS ORDERED: SODIUM CHLORIDE 0.9% 1,000 ML IV SCH (08:00)
[2020-09-07] MEDS: ASPIRIN CHEW 81 MG TABLET PO SCH (08:19)
[2020-09-07] MEDS: LOSARTAN 50 MG TABLET PO SCH (08:19)
[2020-09-07] MEDS: carvediloL 12.5 MG TABLET PO SCH ×2 (08:19→21:22)
[2020-09-07] MEDS: SACCHAROMYCES BOULARDII 250 MG CAPSULE PO SCH ×2 (08:19→17:20)
[2020-09-07] MEDS: amLODIPine 5 MG TABLET PO SCH (08:19)
[2020-09-07] MEDS: cilostazoL 100 MG TABLET PO SCH ×2 (08:20→21:22)
[2020-09-07] MEDS: MULTIVITAMIN W/MINERALS TABLET PO SCH (08:20)
[2020-09-07] MEDS: FERROUS GLUCONATE 324 MG TABLET PO SCH (08:20)
[2020-09-07] MEDS: ENOXAPARIN 40 MG/0.4 ML SYRINGE SUBQ SCH (08:21)
[2020-09-07] MEDS: DOCUSATE SODIUM 250 MG CAPSULE PO SCH (08:26)
[2020-09-07] MEDS: NICOTINE 21 MG PATCH TOP SCH (08:27)
[2020-09-07] MEDS: polyethylene glycoL 3350 17 GM PACKET PO SCH (08:28)
[2020-09-07] MEDS: SENNA 8.6 MG TABLET PO SCH (08:28)
--- NOTE | 2020-09-07 10:59 | PROVIDER PROGRESS NOTE ---
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 His CRP is improving We will finish IV Ancef antibiotic today, as advised by Ortho. Vanco was stopped post-op since source of infection was amputated. We will continue his current pain control regimen postoperatively. He is trying not to use Morphine. I ordered Incentive spirometry use to decrease risk of pneumonia. PT and OT to started working with him yesterday and they advise PT/OT rehab at a SNF for transfers and trunk and balance training. Will contact Ortho for any other recommendations in case of DCh soon. (2) Cellulitis of right lower extremity Impression: We will finish IV Ancef antibiotic today, as advised by ortho. Vanco was stopped post-op since source of infection was amputated. Today is day 7 of antibiotics. (3) Hyponatremia Impression: Slightly worsened again by morning labs. He does appear to be chronically hyponatremic. Will give a day of NS iv and stop the LR, and will DC iv fluids completely tomorrow. We will continue to monitor BMP daily. (4) PAD (peripheral artery disease) Impression: This is the cause of his right lower extremity infection. We resumed his aspirin and cilostazol postoperatively. Smoking cessation would help. A Nicotine patch is ordered. (5) Pancreatic mass Impression: He declined further work-up of this in the past. CA 19-9 is within normal limits. He reported that he used to be an alcoholic, stopped 5 years ago. He will need to follow-up outpatient with his primary care provider. (6) HTN (hypertension) Impression: BP controlled. We did start amlodipine and continued losartan and carvedilol. If he remains hypertensive we can uptitrate his amlodipine. Qualifiers: Hypertension type: essential hypertension Qualified Code(s): I10 - Essential (primary) hypertension (7) COPD (chronic obstructive pulmonary disease) Impression: Overall he is not in exacerbation. He is on nebs only prn. I ordered Incentive spirometry use to decrease risk of pneumonia. (8) Iron deficiency anemia Impression: EBL was 300 cc during OR 2 days ago and Hgb dropped today on morning labs to 7.1. He is in (+) fluid balance however. Continue iron supplementation. Follow CBC daily. Transfuse if Hgb <7. (9) Tobacco user Smoking cessation would help his PAD. A Nicotine patch is ordered. - Current Meds Current Meds: Current Medications Generic Name Dose Route Start Last Admin Trade Name Freq PRN Reason Stop Dose Admin Acetaminophen 650 mg 09/01/20 18:51 09/05/20 12:11 Acetaminophen 325 Mg Tablet PO 650 mg Q4HR PRN Administration Pain 1 to 4 Amlodipine Besylate 5 mg 09/04/20 11:00 09/07/20 08:19 Amlodipine 5 Mg Tablet PO 5 mg DAILY ASH Administration Aspirin 81 mg 09/06/20 09:00 09/07/20 08:19 Aspirin Chew 81 Mg Tablet PO 81 mg DAILY ASH Administration Calcium Carbonate/Glycine 500 mg 09/04/20 19:40 09/05/20 08:33 Calcium Carbonate Chew 500 Mg Tablet PO 500 mg TID PRN Administration Heartburn Carvedilol 25 mg 09/01/20 21:00 09/07/20 08:19 Carvedilol 12.5 Mg Tablet PO 25 mg BID ASH Administration Cilostazol 50 mg 09/06/20 10:30 09/07/20 08:20 Cilostazol 100 Mg Tablet PO 50 mg BID ASH Administration Diphenhydramine HCl 25 mg 09/06/20 23:08 09/06/20 23:38 Diphenhydramine 25 Mg Capsule PO 25 mg Q4HR PRN Administration Allergy Symptoms Docusate Sodium 250 - 500 mg 09/06/20 09:00 09/07/20 08:26 Docusate Sodium 250 Mg Capsule PO Not Given DAILY ASH Enoxaparin Sodium 40 mg 09/06/20 09:00 09/07/20 08:21 Enoxaparin 40 Mg/0.4 Ml Syringe SUBQ 40 mg DAILY ASH Administration Ferrous Gluconate 324 mg 09/02/20 08:00 09/07/20 08:20 Ferrous Gluconate 324 Mg Tablet PO 324 mg DAILYWM ASH Administration Cefazolin Sodium/Dextrose 2 gm in 50 mls @ 200 mls/hr 09/05/20 20:00 09/07/20 05:22 Ancef 2 Gm/50 Ml IV 09/07/20 23:00 Infused Q8HR ASH Infusion Sodium Chloride 1,000 mls @ 60 mls/hr 09/07/20 08:00 09/07/20 08:22 Normal Saline 0.9% IV 60 mls/hr .[id number] ASH Administration Lidocaine 1 applic 09/02/20 14:23 09/03/20 17:44 Lidocaine Ointment 5% 35.44 Gm Tube TOP 1 applic DAILY PRN Administration DRESSING CHANGES Losartan Potassium 100 mg 09/02/20 09:00 09/07/20 08:19 Losartan 50 Mg Tablet PO 100 mg DAILY ASH Administration Morphine Sulfate 2 mg 09/01/20 18:51 09/05/20 22:52 Morphine 2 Mg/Ml Carpuject IVP 2 mg Q2HR PRN Administration Pain 8 to 10 Multi-Ingredient Ointment 1 applic 09/01/20 22:27 09/03/20 17:44 Zinc Oxide 20% Oint 30 Gm Tube TOP 1 applic PRN PRN Administration Skin Care Multivitamins/Minerals 1 tab 09/02/20 08:00 09/07/20 08:20 Multivitamin W/Minerals Tablet PO 1 tab DAILYWM ASH Administration Nicotine 1 patch 09/03/20 09:00 09/07/20 08:27 Nicotine 21 Mg Patch TOP 1 patch DAILY ASH Administration Ondansetron HCl 4 mg 09/01/20 18:51 09/04/20 08:19 Ondansetron 4 Mg/2 Ml Vial IVP 4 mg Q6HR PRN Administration Nausea / Vomiting Oxycodone HCl 5 mg 09/01/20 18:51 09/05/20 20:22 Oxycodone 5 Mg Tablet PO 5 mg Q4HR PRN Administration Pain 5 to 7 Polyethylene Glycol 17 gm 09/06/20 09:00 09/07/20 08:28 Polyethylene Glycol 3350 17 Gm Packet PO Not Given DAILY ASH Saccharomyces Boulardii 250 mg 09/02/20 08:00 09/07/20 08:19 Saccharomyces Boulardii 250 Mg Capsule PO 250 mg BIDWM ASH Administration Senna 8.6 - 17.2 mg 09/06/20 09:00 09/07/20 08:28 Senna 8.6 Mg Tablet PO Not Given DAILY ASH Sodium Chloride 10 ml 09/01/20 18:51 09/05/20 12:04 Sodium Chloride Flush 0.9% 10 Ml Syringe IVP 10 ml PRN PRN Administration NEEDED PER PROVIDER ORDERS Sodium Chloride 10 ml 09/02/20 01:00 09/07/20 08:21 Sodium Chloride Flush 0.9% 10 Ml Syringe IVP 10 ml 0100,0900,1700 [facility] Administration - Lab Result Fish Bone Diagrams: 09/07/20 04:45 09/07/20 04:45 - Additional Planning My Orders: My Active Orders 09/06/20 15:09 Miscellaenous Nursing Order [RC] ONCE 09/07/20 08:00 Sodium Chloride 0.9% [Normal Saline 0.9%] 1,000 ml IV 60 mls/hr Subjective - Subjective Patient Reports: Feeling Better, Other (Thinks his L face is droooping ("like [place] palsy).) Objective Vital Signs: Vital Signs - 24 hr 09/06/20 09/06/20 09/06/20 11:53 14:05 15:00 Temperature 37.0 C Heart Rate 98 Heart Rate [ 100 Brachial] Heart Rate [ 97 Supine] Respiratory 18 18 Rate Blood Pressure [Left Brachial artery] Blood Pressure 122/58 L [Right Brachial artery] Blood Pressure 132/65 H [Supine] O2 Saturation 96 09/06/20 09/06/20 09/06/20 16:10 20:20 23:58 Temperature 37.1 C 37.1 C 36.9 C Heart Rate Heart Rate [ 81 96 91 Brachial] Heart Rate [ Supine] Respiratory 20 20 18 Rate Blood Pressure 126/60 [Left Brachial artery] Blood Pressure 114/54 L 136/68 H [Right Brachial artery] Blood Pressure [Supine] O2 Saturation 96 100 96 09/07/20 09/07/20 05:11 07:45 Temperature 37 C 36.8 C Heart Rate Heart Rate [ 95 91 Brachial] Heart Rate [ Supine] Respiratory 17 18 Rate Blood Pressure 129/65 145/66 H [Left Brachial artery] Blood Pressure [Right Brachial artery] Blood Pressure [Supine] O2 Saturation 95 95 Oxygen O2 Source Room air I&O (Last 24 Hrs): Intake and Output Totals x24h 09/05/20 09/06/20 09/07/20 23:59 23:59 23:59 Intake Total 3126.313 9008.667 1320 Output Total 4075 4900 2350 Balance -2150.003 486.667 -1030 General: Alert, Oriented x3 HEENT: Mucous membr. moist/pink, Other (Facial musculature equal, able to make pout and from and smile symmetrically.) Neck: No JVD Neuro: Alert, Non Focal Cardiovascular: Regular rate Respiratory: No respiratory distress Abdomen: Soft Extremities: Other (Bilat AKAs, both bandaged.) - Results Results: Laboratory Results WBC 12.4 x10^3/uL (4.8-10.8) H 09/07/20 04:45 RBC 2.83 10^6/uL (4.70-6.10) L 09/07/20 04:45 Hgb 7.1 g/dL (14.0-18.0) L 09/07/20 04:45 Hct 22.6 % (42.0-52.0) L 09/07/20 04:45 MCV 79.9 fL (80.0-94.0) L 09/07/20 04:45 MCH 25.1 pg (27.0-31.0) L 09/07/20 04:45 MCHC 31.4 g/dL (32.0-36.0) L 09/07/20 04:45 RDW 15.3 % (12.0-15.0) H 09/07/20 04:45 Plt Count 396 10^3/uL (130-450) 09/07/20 04:45 MPV 8.1 fL (7.4-11.4) 09/07/20 04:45 Neut # (Auto) 8.7 10^3/uL (1.5-6.6) H 09/07/20 04:45 Lymph # (Auto) 2.0 10^3/uL (1.5-3.5) 09/07/20 04:45 Lares # (Auto) 1.4 10^3/uL (0.0-1.0) H 09/07/20 04:45 Eos # (Auto) 0.1 10^3/uL (0.0-0.7) 09/07/20 04:45 Baso # (Auto) 0.0 10^3/uL (0.0-0.1) 09/07/20 04:45 Absolute Nucleated RBC 0.00 x10^3/uL 09/07/20 04:45 Nucleated RBC % 0.0 /100WBC 09/07/20 04:45 ESR 110 mm/Hr (0-20) H 09/01/20 17:36 PT 15.8 secs (9.9-12.6) H 09/01/20 17:36 INR 1.5 (0.8-1.2) H 09/01/20 17:36 APTT 30.3 secs (24.9-33.3) 09/01/20 17:36 Sodium 124 mmol/L (135-145) L 09/07/20 04:45 Potassium 3.5 mmol/L (3.5-5.0) 09/07/20 04:45 Chloride 91 mmol/L (101-111) L 09/07/20 04:45 Carbon Dioxide 26 mmol/L (21-32) 09/07/20 04:45 Anion Gap 7.0 (6-13) 09/07/20 04:45 BUN 14 mg/dL (6-20) 09/07/20 04:45 Creatinine 0.6 mg/dL (0.6-1.2) 09/07/20 04:45 Estimated GFR (MDRD) 139 (>89) 09/07/20 04:45 Glucose 123 mg/dL (70-100) H 09/07/20 04:45 Lactic Acid 0.8 mmol/L (0.5-2.2) 09/01/20 17:36 Calcium 7.8 mg/dL (8.5-10.3) L 09/07/20 04:45 Phosphorus 2.9 mg/dL (2.5-4.6) 09/07/20 04:45 Magnesium 1.9 mg/dL (1.7-2.8) 09/07/20 04:45 Iron 20 ug/dL (45-182) L 09/01/20 17:36 TIBC 192 ug/dL (250-450) L 09/01/20 17:36 % Saturation 10 % (20-50) L 09/01/20 17:36 Transferrin 137 mg/dL (180-329) L 09/01/20 17:36 Ferritin 255.4 ng/mL (23.9-336.2) 09/01/20 17:36 Total Bilirubin 0.5 mg/dL (0.2-1.0) 09/01/20 17:36 AST 24 IU/L (10-42) 09/01/20 17:36 ALT 24 IU/L (10-60) 09/01/20 17:36 Alkaline Phosphatase 96 IU/L (42-121) 09/01/20 17:36 C-Reactive Protein 14.4 mg/dL (0-1.0) H 09/07/20 04:45 Total Protein 7.6 g/dL (6.7-8.2) 09/01/20 17:36 Albumin 2.7 g/dL (3.2-5.5) L 09/01/20 17:36 Globulin 4.9 g/dL (2.1-4.2) H 09/01/20 17:36 Albumin/Globulin Ratio 0.6 (1.0-2.2) L 09/01/20 17:36 Lipase 53 U/L (22-51) H 09/01/20 17:36 CA 19-9 Antigen 14 U/mL (<34) 09/01/20 17:31 Vitamin B12 306 pg/mL (180-914) 09/02/20 04:46 Urine Color YELLOW 09/01/20 17:20 Urine Clarity CLEAR (CLEAR) 09/01/20 17:20 Urine pH 7.5 PH (5.0-7.5) 09/01/20 17:20 Ur Specific [place] 1.015 (1.002-1.030) 09/01/20 17:20 Urine Protein NEGATIVE mg/dL (NEGATIVE) 09/01/20 17:20 Urine Glucose (UA) NEGATIVE mg/dL (NEGATIVE) 09/01/20 17:20 Urine Ketones NEGATIVE mg/dL (NEGATIVE) 09/01/20 17:20 Urine Occult Blood NEGATIVE (NEGATIVE) 09/01/20 17:20 Urine Nitrite NEGATIVE (NEGATIVE) 09/01/20 17:20 Urine Bilirubin NEGATIVE (NEGATIVE) 09/01/20 17:20 Urine Urobilinogen 0.2 (NORMAL) E.U./dL (NORMAL) 09/01/20 17:20 Ur Leukocyte Esterase NEGATIVE (NEGATIVE) 09/01/20 17:20 Ur Microscopic Review NOT INDICATED 09/01/20 17:20 Urine Culture Comments NOT INDICATED 09/01/20 17:20 Nasal Adenovirus (PCR) NOT DETECTED 09/01/20 19:19 Nasal B. parapertussis DNA (PCR) NOT DETECTED 09/01/20 19:19 Nasal Coronavir 229E PCR NOT DETECTED 09/01/20 19:19 Nasal Coronavir HKU1 PCR NOT DETECTED 09/01/20 19:19 Nasal Coronavir NL63 PCR NOT DETECTED 09/01/20 19:19 Nasal Coronavir OC43 PCR NOT DETECTED 09/01/20 19:19 Nasal Enterovir/Rhinovir PCR NOT DETECTED 09/01/20 19:19 Nasal Influenza B PCR NOT DETECTED 09/01/20 19:19 Nasal Influenza A PCR NOT DETECTED 09/01/20 19:19 Nasal Parainfluen 1 PCR NOT DETECTED 09/01/20 19:19 Nasal Parainfluen 2 PCR NOT DETECTED 09/01/20 19:19 Nasal Parainfluen 3 PCR NOT DETECTED 09/01/20 19:19 Nasal Parainfluen 4 PCR NOT DETECTED 09/01/20 19:19 Nasal RSV (PCR) NOT DETECTED 09/01/20 19:19 Nasal B.pertussis DNA PCR NOT DETECTED 09/01/20 19:19 Nasal C.pneumoniae (PCR) NOT DETECTED 09/01/20 19:19 Jhonny Human Metapneumo PCR NOT DETECTED 09/01/20 19:19 Nasal M.pneumoniae (PCR) NOT DETECTED 09/01/20 19:19 Nasal SARS-CoV-2 (PCR) NOT DETECTED 09/01/20 19:19 Last Dose Date 09/04/20 09/04/20 12:11 Last Dose Time 0630 09/04/20 12:11 Vancomycin Trough 31.8 ug/mL (10.0-20.0) H* 09/04/20 12:11 Blood Type A POSITIVE 09/05/20 05:18 Blood Type Recheck A POSITIVE 09/03/20 04:35 Antibody Screen NEGATIVE 09/05/20 05:18 Sepsis Event Note (H) - Evaluation Current Stage of Sepsis: Ruled out
--- NOTE | 2020-09-07 14:59 | PROVIDER PROGRESS NOTE ---
Subjective - General Admit Date: 09/01/20 Procedure Date: 09/05/20 Post Op Days: 2 Procedure Performed: right above knee amputation - Review of Systems Wound/Incisions: positive: Dressing dry and intact General: positive: No symptoms. negative: Other (Occasional burning right leg, lower portion) Pulmonary: positive: No symptoms Cardiovascular: positive: No symptoms Musculoskeletal: negative: Other (Gangrene right leg, swelling and cellulitis improved) Psychiatric: positive: Mood lability. negative: Agitation (He has less anxiety and agitation today) - Other Other Information/Narrative: He is sitting in a chair, alert and oriented, articulate, no acute distress. He is not complaining of pain and is now 2 days status post right above-knee amputation. Objective - Patient Data Vital Signs: Vital Signs x48h Temp Pulse Pulse Pulse Resp BP BP 09/07/20 11:19 37.0 C 94 18 107/62 09/07/20 10:50 93 94 107/62 09/07/20 07:45 36.8 C 91 18 145/66 H BP Pulse Ox 09/07/20 11:19 97 09/07/20 10:50 114/55 L 09/07/20 07:45 95 Weight: Weight 09/05/20 09/06/20 09/07/20 23:59 23:59 23:59 Weight (kg) 82 kg Intake & Output: Intake and Output Totals x24h 09/05/20 09/06/20 09/07/20 23:59 23:59 23:59 Intake Total 6097.416 2475.667 2435 Output Total 4075 4900 2900 Balance -2150.003 486.667 -465 - Lab Results Lab Results: 09/07/20 04:45 09/07/20 04:45 Other Lab Results: Lab Results x24hrs 09/07/20 09/07/20 Range/Units 04:45 04:45 WBC 12.4 H (4.8-10.8) x10^3/uL RBC 2.83 L (4.70-6.10) 10^6/uL Hgb 7.1 L (14.0-18.0) g/dL Hct 22.6 L (42.0-52.0) % MCV 79.9 L (80.0-94.0) fL MCH 25.1 L (27.0-31.0) pg MCHC 31.4 L (32.0-36.0) g/dL RDW 15.3 H (12.0-15.0) % Plt Count 396 (130-450) 10^3/uL MPV 8.1 (7.4-11.4) fL Neut # (Auto) 8.7 H (1.5-6.6) 10^3/uL Lymph # (Auto) 2.0 (1.5-3.5) 10^3/uL [place] # (Auto) 1.4 H (0.0-1.0) 10^3/uL Eos # (Auto) 0.1 (0.0-0.7) 10^3/uL Baso # (Auto) 0.0 (0.0-0.1) 10^3/uL Absolute Nucleated RBC 0.00 x10^3/uL Nucleated RBC % 0.0 /100WBC Sodium 124 L (135-145) mmol/L Potassium 3.5 (3.5-5.0) mmol/L Chloride 91 L (101-111) mmol/L Carbon Dioxide 26 (21-32) mmol/L Anion Gap 7.0 (6-13) BUN 14 (6-20) mg/dL Creatinine 0.6 (0.6-1.2) mg/dL Estimated GFR (MDRD) 139 (>89) Glucose 123 H (70-100) mg/dL Calcium 7.8 L (8.5-10.3) mg/dL Phosphorus 2.9 (2.5-4.6) mg/dL Magnesium 1.9 (1.7-2.8) mg/dL C-Reactive Protein 14.4 H (0-1.0) mg/dL - Current Medications Current Medications: Current Medications Generic Name Dose Route Start Last Admin Trade Name Freq PRN Reason Stop Dose Admin Acetaminophen 650 mg 09/01/20 18:51 09/05/20 12:11 Acetaminophen 325 Mg Tablet PO 650 mg Q4HR PRN Administration Pain 1 to 4 Amlodipine Besylate 5 mg 09/04/20 11:00 09/07/20 08:19 Amlodipine 5 Mg Tablet PO 5 mg DAILY ASH Administration Aspirin 81 mg 09/06/20 09:00 09/07/20 08:19 Aspirin Chew 81 Mg Tablet PO 81 mg DAILY ASH Administration Calcium Carbonate/Glycine 500 mg 09/04/20 19:40 09/05/20 08:33 Calcium Carbonate Chew 500 Mg Tablet PO 500 mg TID PRN Administration Heartburn Carvedilol 25 mg 09/01/20 21:00 09/07/20 08:19 Carvedilol 12.5 Mg Tablet PO 25 mg BID ASH Administration Cilostazol 50 mg 09/06/20 10:30 09/07/20 08:20 Cilostazol 100 Mg Tablet PO 50 mg BID ASH Administration Diphenhydramine HCl 25 mg 09/06/20 23:08 09/06/20 23:38 Diphenhydramine 25 Mg Capsule PO 25 mg Q4HR PRN Administration Allergy Symptoms Docusate Sodium 250 - 500 mg 09/06/20 09:00 09/07/20 08:26 Docusate Sodium 250 Mg Capsule PO Not Given DAILY ASH Enoxaparin Sodium 40 mg 09/06/20 09:00 09/07/20 08:21 Enoxaparin 40 Mg/0.4 Ml Syringe SUBQ 40 mg DAILY ASH Administration Ferrous Gluconate 324 mg 09/02/20 08:00 09/07/20 08:20 Ferrous Gluconate 324 Mg Tablet PO 324 mg DAILYWM ASH Administration Cefazolin Sodium/Dextrose 2 gm in 50 mls @ 200 mls/hr 09/05/20 20:00 09/07/20 13:49 Ancef 2 Gm/50 Ml IV 09/07/20 23:00 Infused Q8HR ASH Infusion Sodium Chloride 1,000 mls @ 60 mls/hr 09/07/20 08:00 09/07/20 08:22 Normal Saline 0.9% IV 09/08/20 00:39 60 mls/hr .[id number] ASH Administration Lidocaine 1 applic 09/02/20 14:23 09/03/20 17:44 Lidocaine Ointment 5% 35.44 Gm Tube TOP 1 applic DAILY PRN Administration DRESSING CHANGES Losartan Potassium 100 mg 09/02/20 09:00 09/07/20 08:19 Losartan 50 Mg Tablet PO 100 mg DAILY ASH Administration Morphine Sulfate 2 mg 09/01/20 18:51 09/05/20 22:52 Morphine 2 Mg/Ml Carpuject IVP 2 mg Q2HR PRN Administration Pain 8 to 10 Multi-Ingredient Ointment 1 applic 09/01/20 22:27 09/03/20 17:44 Zinc Oxide 20% Oint 30 Gm Tube TOP 1 applic PRN PRN Administration Skin Care Multivitamins/Minerals 1 tab 09/02/20 08:00 09/07/20 08:20 Multivitamin W/Minerals Tablet PO 1 tab DAILYWM ASH Administration Nicotine 1 patch 09/03/20 09:00 09/07/20 08:27 Nicotine 21 Mg Patch TOP 1 patch DAILY ASH Administration Ondansetron HCl 4 mg 09/01/20 18:51 09/04/20 08:19 Ondansetron 4 Mg/2 Ml Vial IVP 4 mg Q6HR PRN Administration Nausea / Vomiting Oxycodone HCl 5 mg 09/01/20 18:51 09/05/20 20:22 Oxycodone 5 Mg Tablet PO 5 mg Q4HR PRN Administration Pain 5 to 7 Polyethylene Glycol 17 gm 09/06/20 09:00 09/07/20 08:28 Polyethylene Glycol 3350 17 Gm Packet PO Not Given DAILY [facility] Saccharomyces Boulardii 250 mg 09/02/20 08:00 09/07/20 08:19 Saccharomyces Boulardii 250 Mg Capsule PO 250 mg BIDWM ASH Administration Senna 8.6 - 17.2 mg 09/06/20 09:00 09/07/20 08:28 Senna 8.6 Mg Tablet PO Not Given DAILY ASH Sodium Chloride 10 ml 09/01/20 18:51 09/05/20 12:04 Sodium Chloride Flush 0.9% 10 Ml Syringe IVP 10 ml PRN PRN Administration NEEDED PER PROVIDER ORDERS Sodium Chloride 10 ml 09/02/20 01:00 09/07/20 08:21 Sodium Chloride Flush 0.9% 10 Ml Syringe IVP 10 ml 0100,0900,1700 [facility] Administration - Physical Exam Wound/Incisions: positive: Dressing dry and intact Neurologic/Psychiatric: positive: Oriented x3, Motor nml, Sensation nml Impression/Plan - Problem List Problem List: He is status post right above-knee amputation: Today he looks as good as of ever seen. He sitting well, not complaining of pain, conversing well, notes marked improvement since amputation 2 days ago. Status post left above-knee amputation with superficial wounds that can be treated by wound care department as he was receiving prior to his right above- knee amputation As far as the right above-knee amputation is concerned, he can be switched to a Mepilex type of dressing with 6 inch Tulio wrap around the amputation stump and this can be carried around the waist to act as a hip spica dressing. I would like to recheck him in approximately 2 weeks for suture evaluation removal. The sutures should stay in place to the skin of the right above-knee amputation for approximately 3 weeks from the time of surgery. He needs to work on bed to chair transfers and the potential for ambulation is extremely poor with bilateral above-knee amputee and a person with severe peripheral vascular disease. He should stop antibiotics today. He needs to be on prophylactic deep venous thrombosis in the form of Lovenox 40 mg daily for approximately 6 weeks from the time of surgery. This was discussed with our hospitalist. There are plans for discharge tomorrow.
--- NOTE | 2020-09-07 16:56 | Discharge Plan ---
"Discharge Plan for SNF / [facility] - Discharge Plan And Transition Orders Problem Reviewed?: Yes Disposition: 03 SNF DC/Xfer Condition: Fair Allergies and Adverse Reactions: Allergies Allergy/AdvReac Type Severity Reaction Status Date / Time No Known Drug Allergies Allergy Verified 09/01/20 16:42 Health Concerns: Patient was admitted with necrotic gangrene of the right leg. He underwent [id number] amputation and had 7 days of antibiotics. There is a prior left AKA. He now needs SNF for PT and OT rehab for learning how to transfer and working on trunk balance and control. Plan of Treatment: Daily PT and OT, and continue with his medications for pain control, blood pressure control, nicotine patch for nicotine urges. Care Goals: Improvement in symptoms, rehab and stabilization are the goals. Assessment: The patient understands and is agreeable with the plan. 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 Treated (2) S/P AKA, right R stump care as directed and F/U with Dr Liu in 2 weeks in [facility]o clinic (3) Cellulitis of right lower extremity Treated (4) Disruption of wound, unspecified L stump from AKA in 2020, has wound and stump care is provided (5) Hyponatremia Chronic (6) PAD (peripheral artery disease) Severe (7) Pancreatic mass Needs PCP F/U (8) HTN (hypertension) Stable (9) COPD (chronic obstructive pulmonary disease) Without exacerbation (10) Iron deficiency anemia On replacement treatment (11) Tobacco user On Nicotine patch Medicare Certification Statement: I certify that Post Hospital longterm care is medically necessary on a continuing basis for any of the conditions for which she/he is receiving care during hospitalization. Notify PCP of admission and forward orders to primary provider for signature. Weight on admission and: Weekly Call PCP immediately if weight increases by: 4 kg Other Notification Orders: Call PCP immediately if patient develops dyspnea, chest pain/tightness or edema. House Bowel Program: Yes Additional Bowel Program Orders: If no BM after 2 days, nurse may give M.O.M. 30ml PO PRN and/or ducolax Supp 1 NH and/or DIANA 250mg P.O., and/or senna 1-2 tabs PO. On day 3 nurse may give repeat above order until residents constipation is resolved. Annual Influenza Vaccine (between Nov 23 and June 22): Yes Two-step PPD per [facility] [id number] or approved exception documents: Yes Treatments & Other Orders: Daily PT and OT. Dressing changes of the R stump every 3 days. Dressing of L stump wounds, in 2 places, once a week or sooner if loose Orthopedic Orders: S/P left above-knee amputation which has 2 superficial wounds that EACH need dressing changes weekly: using plain hydrofiber dressing, then covered withn plain boardered foam. For the NEW right above-knee amputation: a Mepilex type of dressing with 6 inch Tulio wrap around the amputation stump and this can be carried around the waist to act as a hip spica dressing. The sutures should stay in place to the skin of the right above-knee amputation for approximately 3 weeks from the time of surgery. Medication Orders: PLEASE REFER TO THE DISCHARGE MEDICATION LIST. Insulin Orders?: No - Medications New Prescriptions: Acetaminophen [Tylenol] 650 mg PO Q4HR PRN #30 tablet PRN Reason: Pain 1 to 4 oxyCODONE [Roxicodone] 5 mg PO Q6HR PRN #30 tablet PRN Reason: Pain 5 to 7 diphenhydrAMINE [Benadryl] 25 mg PO Q8HR PRN #30 cap PRN Reason: Allergy Symptoms Adhesive Bandage [Bandages] 1 each TP Q3D #21 bandage Ferrous Gluconate [Fergon] 324 mg PO DAILYWM #30 tablet Enoxaparin [Lovenox] 40 mg SUBQ Q24H #30 syr Nicotine 7 mg Patch [Nicoderm] 1 each TOP Q24H #14 patch Albuterol Sulfate [Proair Hfa Inhaler] 1 - 2 puffs INH Q4H PRN #1 inh PRN Reason: Shortness Of Air/Wheezing Silver Sulfadiazine Cream [Silvadene Cream] 1 applic TOP Q3D #25 gm Multivitamin W/Minerals [Theragran M] 1 each PO DAILY #30 tablet Calcium Carbonate [Tums (Calcium Carbonate 500mg)] 500 mg PO TID PRN #30 tablet PRN Reason: Heartburn - Diet Type: No added salt Texture: Regular Liquids: Thin May have monthly special meal: Yes - Therapies | Activity Therapy: Evaluation | Treat if indicated: PT (He needs to work on bed to chair transfers now and has the potential for ambulation with prosthetics in the future.), OT Rehabilitation Potential: Maximize functional status Activity: Activity as Tolerated Weight Bearing: Transfer to wheelchair Assistance Devices: Wheelchair Follow Up: Appointment to [facility] Orthopedic clinic with Dr Andrew Liu to recheck him in approximately 2 weeks for suture evaluation before removal. Appointment at [facility] Wound Clinic with Dr Sami Sun to check wounds on L stump, in approximately 2 weeks."
[2020-09-07] MEDS: SILVER SULFADIAZINE CREAM 25 GM TUBE TOP SCH (17:19)
--- NOTE | 2020-09-07 17:20 | DISCHARGE SUMMARY ---
Discharge Summary Admit Date: 09/01/20 Discharge Date: 09/08/20 Discharging Provider: Dr Zoila Holguin Primary Care Provider: Dr Feng Worthy Condition at Discharge: Fair Discharge Disposition: SNF DC/Xfer - HPI History of Present Illness: From the admission H&P of Dr Beverly Hayes: This unfortunate gentleman has a history of peripheral vascular disease and has already undergone an acmyo-[id number] amputation on the left leg in April 2019. In review of his records, he had already developed chronic lymphedema of the legs by 2009 complicated by venous stasis and chronic leg ulcers. And then he had a superficial temporary right foot wound when he was moving a refrigerator and dropped it on his foot. He was then lost to follow-up with his primary care provider locally between 2009 and 2018 when he returned back to the [facility] system. In 2018 he returned on March 12 with a painful, swollen left ryder/calf of 2 weeks duration and had already been seen at [facility] with admit and discharge by March 09 after admit February 26. He had been moving furniture and he struck his ryder on a piece of furniture and subsequently developed large blisters with redness and pain. With that examination that day the foot was gangrenous. Cultures without stay were positive for MSSA and Enterococcus faecalis.He underwent arterial Dopplers, venous Dopplers. Aortogram was done and he had stenosis of both femorals with a stent placement within the left mid superficial femoral artery March 10, 2019. He had stenosis of the SFA on the left. No signs of osteomyelitis in the bone of his foot or tibia. He was seen by stamper blocker Quyen Quispe at [facility]. Revascularization attempt was recommended. During that stay, he was found to have history of pancreatitis due to alcohol abuse. And also had a pancreatic head mass that they were trying to get evaluated at the same time they were trying to take care of his vascular disease of his leg. He had severe leg pain. At the [facility] he been treated with oxycodone, morphine, and he was requesting fentanyl. His primary care provider was attempting to establish him with a chronic pain clinic for that pain management. Unfortunately he had difficulty accessing health care because of the multiple authorizations required between [facility] and the [place] [facility]. He developed gangrene and osteomyelitis of the third and fourth toe and underwent a transmetatarsal amputation and a left anterior leg debridement April 17. Cultures were positive for MSSA. He was discharged April 27 and was on antibiotics for 13 days. Then discharged on Augmentin and a wound VAC placed. However he continued to progress with his infection. He was resent back to the emergency room at [facility] May 04 because his stamper blocker felt that his infection was out of control. He was admitted and eventually underwent an AKA on May 07, 2019. He was continued on Flagyl and that was stopped May 14. He was on IV cefazolin until discharge and switched to oral Ceftin which was stopped May 20. Postoperatively he has been relatively sedentary. The stump has not healed. He has been unable to be fitted for an orthotic due to inability to get appt and transportation issues. Somewhere in May 2020 he hit his right ryder against a box when he was using his wheelchair to turn around in the room. He developed persistent right ryder wound. He has been referred to the wound clinic in May but by June still had not been able to get an appointment because he could not access the schedulers. He did have an appointment with vascular surgery in [facility] in the first part of July to be reassessed for his vascular disease. He had follow-up ultrasound duplex arterial of the lower extremities and it showed that his regions where his prior stenting was done were failing. He was seen by Dr. Benitez Who recommended a right AKA. But the patient did not wish to have another amputation. He was seen in our wound clinic on August 25, 2020. His ischemic ulcer was debrided. Dressed. And asked to return in a week. He returned today. His wound has markedly worsened. Photos are in the EMR to document the spread of gangrene. He was sent to the emergency room for evaluation and he now has an infection, surrounding cellulitis, but no sepsis. He was seen by Orthopedics. The extent of the wound is so severe that the patient is now a candidate for another hxyso-pdh-sikm amputation on the right leg at this time. From a cardiovascular perspective he has no history of ID, congestive heart failure. He was a former smoker, current hyperlipidemic. No history of diabetes. He is hypertensive. He is a relatively sedentary person so there is no ability to assess any change in cardiovascular endurance from him. He denies chest pain, palpitations, orthopnea. He denies having any lung or heart problems. He wakes up several times a night but can't say why, exhausted for the last year. Cough is new today, nonproductive and feels like there is phlegm there that can't come up. He has been seen by Dr. Liu, orthopedics. The patient currently has hyponatremia, cellulitis/infection of the leg. Dr Liu would like preoperative improvement of the patient's status before taki ng him to the OR. The hyponatremia is not new. When he was hospitalized at [facility] in February, the hyponatremia has been present for a year and was running between 126-132. He is a previous alcohol abuser. Has been clean and sober for approximately 5 years, but then he says 10 years. He stopped smoking somewhere in March of this year. He denies cirrhosis but states he has fatty liver. - HOSPITAL COURSE Hospital Course: (1) Gangrene of right lower extremity due to atherosclerosis He was put on iv Vanco and IV Ancef, for 5 days before going to surgery and then had an AKA by Ortho. Vanco was then stopped post-op, since the source of infection was amputated. He got another day of Ancef post-op. (2) S/P AKA, right Pain control postoperatively was good and he started PT and OT to work on transfers. He was ordered to use Incentive spirometry to decrease risk of pneumonia. Dr Liu saw the wound post-op and advised silvadene dressings to be applied and changed every 3 days, and wanted the patient to be seen in 2 weeks in his Ortho clinic. He was discharged for PT/OT rehab at a SNF, to learn transfers and work on trunk and balance training. (3) Cellulitis of right lower extremity He was put on iv Vanco and IV Ancef, for several days before going to surgery and then had an AKA by Ortho. Vanco was then stopped post-op, since the source of infection was amputated. He got another day of Ancef post-op. He had a total of 7 days of antibiotics. (4) Disruption of wound, unspecified The left leg stump, that had a previous AKA in 2019, had 2 wounds being followed by [facility] Wound clinic. On the day of discharge, Dr Sami Sun saw these and advised hydrofiber bandage then bordered foam external dressing on both, to be changed weekly. And he also wanted the next follow-up with him in 2 weeks. (5) Hyponatremia He does appear to be chronically hyponatremic and was euvolemic. Despite gentle saline iv hydration, he ran serum sodium of 124-131. (6) PAD (peripheral artery disease) This was the cause of his right lower extremity infection. We resumed his aspirin and cilostazol postoperatively. Smoking cessation would help. (7) Pancreatic mass He declined further work-up of this in the past. The CA 19-9 is within normal limits. He reported that he used to be an alcoholic, stopped 5 years ago. He will need to follow-up outpatient with his primary care provider. (8) HTN (hypertension) His Carvedilol and Losartan were continued and he needed additional treatment using Amlodipine for several days while here. The Amlodipine was not continued at discharge (BP was better when pain was well controlled). (9) COPD (chronic obstructive pulmonary disease) He was not in exacerbation during this hospitalization. Inhalers were ordered as needed only. (10) Iron deficiency anemia He presented with a Hgb of 10.2, which dropped throughout hospitalization to its lowest of 7.1. He was in (+) fluid balance however, and EBL was 300 cc during surgery. His B12, folate levels and iron stores were checked and he was found to be iron deficient and started on iron supplementation. Hemoglobin at discharge was 7.6 (11) Tobacco user He is a current smoker. Smoking cessation would help his severe PAD. A Nicotine patch was ordered here and for the SNF. - ALLERGIES Allergies/Adverse Reactions: Allergies Allergy/AdvReac Type Severity Reaction Status Date / Time No Known Drug Allergies Allergy Verified 09/01/20 16:42 - MEDICATIONS Home Medications: Ambulatory Orders Medication Instructions Recorded Confirmed Losartan Potassium [Cozaar] 1 tablet PO DAILY 08/25/20 09/01/20 cilostazoL [Cilostazol] 50 mg PO BID 08/25/20 09/02/20 Aspirin [[place] Aspirin] 81 mg PO DAILY 09/01/20 09/01/20 Carvedilol [Coreg] 25 mg PO BID 09/01/20 09/02/20 Acetaminophen [Tylenol] 650 mg PO Q4HR PRN #30 tablet 09/07/20 Adhesive Bandage [Bandages] 1 each TP Q3D #21 bandage 09/07/20 Albuterol Sulfate [Proair Hfa 1 - 2 puffs INH Q4H PRN #1 inh 09/07/20 Inhaler] Calcium Carbonate [Tums (Calcium 500 mg PO TID PRN #30 tablet 09/07/20 Carbonate 500mg)] Enoxaparin [Lovenox] 40 mg SUBQ Q24H #30 syr 09/07/20 Ferrous Gluconate [Fergon] 324 mg PO DAILYWM #30 tablet 09/07/20 Multivitamin W/Minerals [Theragran 1 each PO DAILY #30 tablet 09/07/20 M] Nicotine 7 mg Patch [Nicoderm] 1 each TOP Q24H #14 patch 09/07/20 Silver Sulfadiazine Cream 1 applic TOP Q3D #25 gm 09/07/20 [Silvadene Cream] diphenhydrAMINE [Benadryl] 25 mg PO Q8HR PRN #30 cap 09/07/20 oxyCODONE [Roxicodone] 5 mg PO Q6HR PRN #30 tablet 09/07/20 - PHYSICAL EXAM AT DISCHARGE General Appearance: positive: No acute distress, Alert Eyes Bilateral: positive: Normal inspection, EOMI ENT: positive: ENT inspection nml, No signs of dehydration Neck: positive: Nml inspection, No JVD Respiratory: positive: No respiratory distress, Breath sounds nml Cardiovascular: positive: Regular rate & rhythm, No murmur Abdomen: positive: Non-tender, Nml bowel sounds, No distention Skin: positive: Warm, Dry, Pallor Extremities: positive: Other (Bilateral AKAs, both bandaged.) Neurologic/Psychiatric: positive: Oriented x3 - LABS Result Diagrams: 09/08/20 04:10 09/08/20 04:10 - DIAGNOSTIC IMAGING Diagnostic Imaging Results: Final report reviewed - SEPSIS Current Stage of Sepsis: Ruled out - FOLLOW UP Follow Up: Ortho clinic in 2 weeks Wound clinic in 2 weeks. - TIME SPENT Time Spent in Discharge (Minutes): 60
[2020-09-07 18:36] LABS: B. PARAPERTUSSIS- RESP PCR PAN NOT DETECTED; B. PERTUSSIS- RESP PCR PANEL NOT DETECTED; C. PNEUMONIAE- RESP PCR PANEL NOT DETECTED; CORONAVIRUS 229E-RESP PCR NOT DETECTED; CORONAVIRUS HKU1-RESP PCR NOT DETECTED; CORONAVIRUS NL63-RESP PCR NOT DETECTED; CORONAVIRUS OC43-RESP PCR NOT DETECTED; HUMAN METAPNEUMOVIRUS NOT DETECTED; INFLUENZA A- RESP PCR PANEL NOT DETECTED; INFLUENZA B - RESP PCR PANEL NOT DETECTED; M. PNEUMONIAE- RESP PCR PANEL NOT DETECTED; PARAINFLUENZA VIRUS 1 NOT DETECTED; PARAINFLUENZA VIRUS 2 NOT DETECTED; PARAINFLUENZA VIRUS 3 NOT DETECTED; PARAINFLUENZA VIRUS 4 NOT DETECTED; RHINOVIRUS/ENTEROVIRUS NOT DETECTED; RSV- RESP PCR PANEL NOT DETECTED; SARS-CoV-2 -RESP PCR PANEL NOT DETECTED
[2020-09-07] MEDS: oxyCODONE 5 MG TABLET PO PRN (21:03)
[2020-09-07] MEDS: diphenhydrAMINE 25 MG CAPSULE PO PRN (23:44)
[2020-09-07] MEDS: ZINC OXIDE 20% OINT 30 GM TUBE TOP PRN (23:51)
[2020-09-08 05:49] LABS: CALCIUM 8.2 mg/dL (8.5-10.3); CREATININE 0.6 mg/dL (0.6-1.2); CRP - C-REACTIVE PROTEIN 13.6 mg/dL (0-1.0); POTASSIUM 3.6 mmol/L (3.5-5.0)
[2020-09-08 05:52] LABS: BASOPHILS # (AUTO) 0.1 10^3/uL (0.0-0.1); BASOPHILS % (AUTO) 0.4 %; EOSINOPHILS # (AUTO) 0.1 10^3/uL (0.0-0.7); EOSINOPHILS % (AUTO) 1.1 %; HCT - HEMATOCRIT 24.2 % (42.0-52.0); HGB - HEMOGLOBIN 7.6 g/dL (14.0-18.0); LYMPHOCYTES # (AUTO) 2.2 10^3/uL (1.5-3.5); LYMPHOCYTES % (AUTO) 19.2 %; MEAN CORPUSCULAR HGB CONC 31.4 g/dL (32.0-36.0); MEAN CORPUSCULAR VOLUME 79.6 fL (80.0-94.0); MEAN PLATELET VOLUME 8.5 fL (7.4-11.4); MONOCYTES # (AUTO) 1.1 10^3/uL (0.0-1.0); MONOCYTES % (AUTO) 9.6 %; NEUTROPHILS # (AUTO) 7.7 10^3/uL (1.5-6.6); NEUTROPHILS % (AUTO) 67.8 %; PLT - PLATELET COUNT 497 10^3/uL (130-450); RED BLOOD COUNT 3.04 10^6/uL (4.70-6.10); RED CELL DISTRIBUTION WIDTH 15.5 % (12.0-15.0); WHITE BLOOD COUNT 11.3 x10^3/uL (4.8-10.8)
[2020-09-08] MEDS: oxyCODONE 5 MG TABLET PO PRN ×2 (06:36→12:50)
[2020-09-08] MEDS: SILVER SULFADIAZINE CREAM 25 GM TUBE TOP SCH (06:49)
[2020-09-08] MEDS: SODIUM CHLORIDE FLUSH 0.9% 10 ML SYRINGE IVP PRN (06:50)
[2020-09-08] MEDS: SACCHAROMYCES BOULARDII 250 MG CAPSULE PO SCH (08:17)
[2020-09-08] MEDS: LOSARTAN 50 MG TABLET PO SCH (08:17)
[2020-09-08] MEDS: FERROUS GLUCONATE 324 MG TABLET PO SCH (08:18)
[2020-09-08] MEDS: MULTIVITAMIN W/MINERALS TABLET PO SCH (08:18)
[2020-09-08] MEDS: carvediloL 12.5 MG TABLET PO SCH (08:18)
[2020-09-08] MEDS: polyethylene glycoL 3350 17 GM PACKET PO SCH (08:18)
[2020-09-08] MEDS: amLODIPine 5 MG TABLET PO SCH (08:18)
[2020-09-08] MEDS: ASPIRIN CHEW 81 MG TABLET PO SCH (08:18)
[2020-09-08] MEDS: NICOTINE 21 MG PATCH TOP SCH (08:18)
[2020-09-08] MEDS: ENOXAPARIN 40 MG/0.4 ML SYRINGE SUBQ SCH (08:18)
[2020-09-08] MEDS: cilostazoL 100 MG TABLET PO SCH (08:18)
[2020-09-08] MEDS: SENNA 8.6 MG TABLET PO SCH (08:19)
[2020-09-08] MEDS: SODIUM CHLORIDE FLUSH 0.9% 10 ML SYRINGE IVP SCH (08:19)
[2020-09-08] MEDS: DOCUSATE SODIUM 250 MG CAPSULE PO SCH (08:19)
[2020-09-08 12:57] VITALS: BP 127/67
[2020-09-08] MEDS: diphenhydrAMINE 25 MG CAPSULE PO PRN (13:37)
== END 2020-09-08 14:45 | DRG 240 ==
LOC: ED 16:28 → MS2 18:51
PROVIDERS: ADMIT Internal Medicine; ATTEND Internal Medicine
PROC: 0Y6C0Z3 Detachment at Right Upper Leg, Low, Open Approach (ICD-10-PCS; principal; 2020-09-05 14:00)
DX: I70.261 Atherosclerosis of native arteries of extremities with gangrene, right leg (principal); L97.819 Non-pressure chronic ulcer of other part of right lower leg with unspecified severity; L03.115 Cellulitis of right lower limb; I67.82 Cerebral ischemia; R41.89 Other symptoms and signs involving cognitive functions and awareness; I10 Essential (primary) hypertension; J44.9 Chronic obstructive pulmonary disease, unspecified; G47.33 Obstructive sleep apnea (adult) (pediatric); D50.9 Iron deficiency anemia, unspecified; F10.11 Alcohol abuse, in remission; Z89.612 Acquired absence of left leg above knee; T87.81 Dehiscence of amputation stump; Y83.5 Amputation of limb(s) as the cause of abnormal reaction of the patient, or of later complication, without mention of misadventure at the time of the procedure; G89.4 Chronic pain syndrome; K76.0 Fatty (change of) liver, not elsewhere classified; M54.9 Dorsalgia, unspecified; D37.8 Neoplasm of uncertain behavior of other specified digestive organs; F17.200 Nicotine dependence, unspecified, uncomplicated; I89.0 Lymphedema, not elsewhere classified; E78.5 Hyperlipidemia, unspecified; R79.89 Other specified abnormal findings of blood chemistry; F32.9 Major depressive disorder, single episode, unspecified; F34.1 Dysthymic disorder; G44.209 Tension-type headache, unspecified, not intractable; H54.7 Unspecified visual loss; K59.00 Constipation, unspecified; R35.1 Nocturia; Z73.6 Limitation of activities due to disability; Z99.3 Dependence on wheelchair; Z91.19 Patient's noncompliance with other medical treatment and regimen; Z87.19 Personal history of other diseases of the digestive system; Z87.820 Personal history of traumatic brain injury; Z79.82 Long term (current) use of aspirin; Z79.899 Other long term (current) drug therapy; Z20.822 Contact with and (suspected) exposure to COVID-19
CPT/HCPCS: 0202U; 36415; 73590; 73630; 80048; 80053; 80202; 81003; 82607; 82728; 83540; 83605; 83690; 83735; 84100; 84466; 85014; 85018; 85025; 85610; 85651; 85730; 86140; 86301; 86850; 86900; 86901; 87040; 93005; 93306; 94640; 96365; 97161; 97166; 97530; 99284; 99285; A9270; C1713; J0690; J1650; J3370; J7120; 81001; 87086

== ENCOUNTER 2020-10-29 20:24 | Inpatient (IN) | payer MEDICAID ==
[2020-10-29 21:35] LABS: BASOPHILS # (AUTO) 0.1 10^3/uL (0.0-0.1); BASOPHILS % (AUTO) 0.7 %; EOSINOPHILS # (AUTO) 0.2 10^3/uL (0.0-0.7); EOSINOPHILS % (AUTO) 2.1 %; HCT - HEMATOCRIT 39.1 % (42.0-52.0); HGB - HEMOGLOBIN 12.5 g/dL (14.0-18.0); LYMPHOCYTES # (AUTO) 2.3 10^3/uL (1.5-3.5); LYMPHOCYTES % (AUTO) 26.3 %; MEAN CORPUSCULAR HEMOGLOBIN 27.2 pg (27.0-31.0); MEAN PLATELET VOLUME 9.2 fL (7.4-11.4); MONOCYTES # (AUTO) 0.7 10^3/uL (0.0-1.0); MONOCYTES % (AUTO) 8.3 %; NEUTROPHILS # (AUTO) 5.4 10^3/uL (1.5-6.6); NEUTROPHILS % (AUTO) 62.4 %; PLT - PLATELET COUNT 326 10^3/uL (130-450); RED CELL DISTRIBUTION WIDTH 16.3 % (12.0-15.0); WHITE BLOOD COUNT 8.6 x10^3/uL (4.8-10.8)
[2020-10-29 21:48] LABS: ALBUMIN 3.8 g/dL (3.2-5.5); BILIRUBIN,TOTAL 0.5 mg/dL (0.2-1.0); CALCIUM 9.2 mg/dL (8.5-10.3); CREATININE 0.6 mg/dL (0.6-1.2); TOTAL PROTEIN 7.7 g/dL (6.7-8.2)
[2020-10-29] MEDS ORDERED: VANCOMYCIN INJ 2 GM in SODIUM CHLORIDE 0.9% 500 ML IV STA (22:10)
[2020-10-29] MEDS ORDERED: CEFEPIME 2 GM in SODIUM CHLORIDE 0.9% MINIBAG 100 ML IV STA (22:11)
--- NOTE | 2020-10-29 22:12 | ED Physician Documentation ---
History of Present Illness - Stated complaint Stated Complaint: RT LEG WOUND - Chief complaint Chief Complaint: Wound - History obtained from History obtained from: Patient - Additonal information Additional information: 55-year-old man with history of high blood pressure, atherosclerosis status post right above-knee amputation by Dr. Liu a month ago, Presents with purulent drainage from the right knee amputation. Denies fever. Does have pain and some redness. Review of Systems Constitutional: denies: Fever Skin: reports: Other (eschar and purulence) Musculoskeletal: reports: Extremity pain PD PAST MEDICAL HISTORY - Past Medical History Cardiovascular: Hypertension, High cholesterol, Peripheral Vascular Disease, Other Respiratory: Sleep apnea Neuro: Head injury, Headaches, Peripheral neuropathy Endocrine/Autoimmune: Other GI: Pancreatitis, Other HEENT: Chronic vision loss Psych: Depression Musculoskeletal: Chronic back pain - Past Surgical History Past Surgical History: Yes Ortho: Amputation Cardiovascular: Angioplasty HEENT: Other - Present Medications Home Medications: Ambulatory Orders Medication Instructions Recorded Confirmed Losartan Potassium [Cozaar] 1 tablet PO DAILY 08/25/20 10/29/20 cilostazoL [Cilostazol] 50 mg PO BID 08/25/20 10/29/20 Aspirin [[place] Aspirin] 81 mg PO DAILY 09/01/20 10/29/20 Carvedilol [Coreg] 12.5 mg PO BID 09/01/20 10/29/20 Clopidogrel [Plavix] 75 mg PO ONCE 10/29/20 10/29/20 - Allergies Allergies/Adverse Reactions: Allergies Allergy/AdvReac Type Severity Reaction Status Date / Time No Known Drug Allergies Allergy Verified 10/29/20 20:36 - Social History Does the pt smoke?: Yes Smoking Status: Current every day smoker - Immunizations Immunizations are current?: Yes - POLST Patient has POLST: No POLST Status: Full Code PD ED PE NORMAL - Vitals Vital signs reviewed: Yes - General General: Alert and oriented X 3, No acute distress, Well developed/nourished - HEENT HEENT: Atraumatic, PERRL, EOMI - Neck Neck: Supple, no meningeal sign - Cardiac Cardiac: RRR - Respiratory Respiratory: No respiratory distress, Clear bilaterally - Abdomen Abdomen: Non tender, Non distended - Derm Derm: Normal color - Extremities Extremities: Other (Right knee amputation with eschar and purulence) - Neuro Neuro: Alert and oriented X 3 - Psych Psych: Normal mood, Normal affect Results - Vitals Vitals: Vital Signs - 24 hr 10/29/20 10/29/20 20:36 21:30 Temperature 36.7 C 36.2 C L Heart Rate 87 84 Respiratory 19 20 Rate Blood Pressure 188/100 H 157/90 H O2 Saturation 100 Oxygen O2 Source Room air - Labs Labs: Laboratory Tests 10/29/20 10/29/20 10/29/20 21:26 21:26 21:26 WBC 8.6 RBC 4.60 L Hgb 12.5 L Hct 39.1 L MCV 85.0 MCH 27.2 MCHC 32.0 RDW 16.3 H Plt Count 326 MPV 9.2 Neut # (Auto) 5.4 Lymph # (Auto) 2.3 Oliver # (Auto) 0.7 Eos # (Auto) 0.2 Baso # (Auto) 0.1 Absolute Nucleated RBC 0.00 Nucleated RBC % 0.0 Sodium 130 L Potassium 4.0 Chloride 99 L Carbon Dioxide 23 Anion Gap 8.0 BUN 9 Creatinine 0.6 Estimated GFR (MDRD) 139 Glucose 106 H Lactic Acid 0.6 Calcium 9.2 Total Bilirubin 0.5 AST 13 ALT 14 Alkaline Phosphatase 53 Total Protein 7.7 Albumin 3.8 Globulin 3.9 Albumin/Globulin Ratio 1.0 PD MEDICAL DECISION MAKING - ED course ED course: 55-year-old man presents with right knee amputation infection. Discussed with Dr. Epstein who will take her to the OR tomorrow morning. Discussed with Dr. Beverly Hayes for admission. Departure - Departure Disposition: 66 [facility] DC/Xfer Clinical Impression: Infection of wound without complication, Cellulitis Condition: Stable
[2020-10-29] MEDS ORDERED: ONDANSETRON ODT 4 MG TABLET TL PRN (22:13)
[2020-10-29] MEDS ORDERED: ZOLPIDEM 5 MG TABLET PO PRN (22:13)
[2020-10-29] MEDS ORDERED: ACETAMINOPHEN 325 MG TABLET PO PRN (22:13)
[2020-10-29] MEDS ORDERED: PROCHLORPERAZINE 10 MG/2 ML VIAL IVP PRN (22:13)
[2020-10-29] MEDS ORDERED: ONDANSETRON 4 MG/2 ML VIAL IVP PRN (22:13)
[2020-10-29] MEDS ORDERED: SODIUM CHLORIDE FLUSH 0.9% 10 ML SYRINGE IVP PRN (22:13)
--- NOTE | 2020-10-29 22:20 | HISTORY & PHYSICAL EXAMINATION ---
Chief Complaint - Chief Complaint Chief Complaint: draining stump wound History of Present Illness - Admitted From Admitted From:: home - History Obtained From Records Reviewed: [facility] History obtained from: Dr. Haile Exam Limitations: none - History of Present Illness HPI Comment/Other: This gentleman was admitted September 01 for a gangrenous right leg after being seen in the medical ambulatory clinic for wound debridement. He has chronic lymphedema of the legs starting in 2009 complicated by venous stasis and chronic leg ulcers. In 2009 he dropped a refrigerator on his foot and had a right foot wound infection. [place] by the [place] [facility] between 2009 and 2018. He returned March 12, 2019 with a painful, swollen left ryder/calf of 2 weeks duration. He had already been seen at [facility] with an admission and discharged by March 09 after being admitted February 26. With that admission he had struck his ryder on a piece of furniture and developed large blisters with redness and pain. The foot was gangrenous. Cultures were positive for MSSA and Enterococcus faecalis. He had severe peripheral vascular disease and had femoral stents placed March 10, 2019. During that stay he was found to have a history of pancreatitis due to alcohol abuse. One of the CT showed him to have a pancreatic mass at the same time they were trying to take care of that infected leg. His primary care provider was trying to access care through the [facility] but it required multiple authorizations and conversation between [facility] and the [place] system that were unsuccessful. 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 Discharge April 27. On antibiotics for 13 days. Was discharged on Augmentin and a wound VAC. Seen in the emergency room at [facility] May 04 and felt that his infection was out of control and he was readmitted and underwent a left AKA May 07. Continued on antibiotics that were stopped May 14. Switch to oral antibiotics which were stopped May 20. The stump had not healed, unable to be fitted for an orthotic due to inability to get transportation and appointment issues. Somewhere in May he hit his right ryder against a box when he was using his wheelchair to turn around in the room. He then developed a persistent right ryder wound. Again could not get an appointment because he could not access the schedulers. In the meantime he was seen by vascular surgery at [place], who recommended a right AKA. He did not want to have the right AKA and came to our wound clinic August 25. Ischemic ulcer was debrided, and he was to return. He returned to the clinic on September 01 where he had markedly worse infection so he sent to the emergency room and then admitted by us. He was put on vancomycin and Ancef for 5 days and then underwent a right AKA with orthopedics and general surgery. At discharge his left stump wound was also seen. Dr. Sami Sun advised Hydrofiber bandage and foam dressing e xternally to both stumps to be changed weekly. The patient declines further work-up for his pancreatic mass. CA 19-9 is within normal limits. During his stay he had iron deficiency anemia with a hemoglobin that dropped to 7.1. This was attributed to acute blood loss anemia superimposed on chronic anemia. Hemoglobin at discharge was 7.6. He was still a current smoker and he was advised to stop smoking in an effort to help some of his peripheral vascular disease. Discharge was September 08 to a SNF in [place]. He states that they rammed his right stump into a wall by accident and the folded skin over the stump was traumatized and began to split open. While there he was seen by Psychiatry since he was not "adjusting to institutional living" (his words) very well. Since the trauma to the right stump, infection has set in. He has been home about 2 weeks. Gets one shower a week because it's too hard to the rest of the time it's a sponge bath. NO dressings have been in place. He states the left stump has never healed and also has an eschar. He has seen Dr. Liu once in followup. But when the right stump starting draining yellow fluid he decided to come to the ER. He now returns with purulent drainage from the right stump. He denies fever, chills. Does have some pain. He was seen by Dr. Haile and temperature was 36.7. Heart rate 87. Respirations 19. Blood pressure 188/100. During his stay in the ER his blood pressure went down to 157/90. 100% on room air. Dr. Haile felt that the distal stump had eschar and quite a bit of purulence and infection underneath the eschar. She consulted with general surgery. General surgery would like the patient admitted to our service and he will consult and plans on doing surgery tomorrow morning. On lab review he has chronic hyponatremia. He does have a previous history of alcohol abuse but that has not been present for years. He denies any history of cirrhosis. White cell count is normal. Hemoglobin is 12.5. Platelets are 326. The emergency room physician has cultured his stump. The patient denies chest pain, shortness of breath, palpitations, jaw pain, diaphoresis. He is a current smoker and denies any emphysema symptoms. He was not smoking during his stay in the SNF but resumed 1 ppd while home. Occasional cough, occasionally productive of white phlegm. History - Past Medical History Cardiovascular: reports: Hypertension, High cholesterol, Peripheral Vascular Disease, Other Respiratory: reports: Sleep apnea Neuro: reports: Head injury, Headaches, Peripheral neuropathy GI: reports: Pancreatitis, Other (pancreatic head mass) HEENT: reports: Chronic vision loss Psych: reports: Depression Musculoskeletal: reports: Chronic back pain MRSA Hx?: Yes - Past Surgical History Ortho: reports: Amputation Cardiovascular: reports: Angioplasty HEENT: reports: Other - Family & Social History Family History Comment/Other: Mother: HTN, CVA in 70s. Father: healthy. Half siblings: one sister w kidney stones. Daughter w spina bifida and one lung. Smoker, substance abuser?, had pneumonia and refused trach. Left AMA and at home. Son is healthy and lives in [facility] [place] Living arrangement: At home Living Situation: With spouse/s.o. Social History Notes: hx of tobacco and alcohol use disorders, currently abstinent. Started smoking in 1977 and smoked 1 pack/day. Quit 03/2020. 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 On disability since leaving the [place] 1995. and lives in [place]. Had 2 children but daughter last year and now has 13 yr old granddaughter living with them - Substance History Use: Uses substance without health or social issues: Tobacco, Cannabis Use Issues: Other (severe PVD) Dependence: Experiences withdrawal or developed tolerances: NONE - POLST Patient has POLST: No POLST Status: Full Code Meds/Allgy - Home Medications Home Medications: Ambulatory Orders Medication Instructions Recorded Confirmed Losartan Potassium [Cozaar] 1 tablet PO DAILY 08/25/20 10/29/20 cilostazoL [Cilostazol] 50 mg PO BID 08/25/20 10/29/20 Aspirin [[place] Aspirin] 81 mg PO DAILY 09/01/20 10/29/20 Carvedilol [Coreg] 12.5 mg PO BID 09/01/20 10/29/20 Clopidogrel [Plavix] 75 mg PO ONCE 10/29/20 10/29/20 - Allergies Allergies/Adverse Reactions: Allergies Allergy/AdvReac Type Severity Reaction Status Date / Time No Known Drug Allergies Allergy Verified 10/29/20 20:36 Review of Systems - Constitutional Constitutional: denies: Fatigue, Fever, Chills, Malaise, Weakness, Poor appetite, Diaphoresis, Night sweats - Eyes Eyes: denies: Pain, Irritation, Vision loss, Dipolpia - Ears, Nose & Throat Ears, Nose & Throat: denies: Hearing loss, Hearing aids, Vertigo, Nasal congestion, Sore throat, Hoarseness - Cardiovascular Cariovascular: denies: Irregular heart rate, Palpitations, Chest pain, Edema, Lightheadedness, Syncope, Exertional dyspnea, Decr. exercise tolerance - Respiratory Respiratory: reports: Cough. denies: Sputum production, Wheezing, Snoring, SOB at rest, SOB with exertion - Gastrointestinal Gastrointestinal: denies: Abdominal pain, Abdominal distention, Constipation, Diarrhea, Change in bowel habits - Genitourinary Genitourinary: reports: Nocturia. denies: Dysuria, Frequency, Urgency, Flank pain - Musculoskeletal Musculoskeletal: reports: Muscle pain (at the right and left stumps). denies: Back pain, Muscle aches, Stiffness, Joint pain - Integumentary Integumentary: reports: Rash (left stump getting red skin proximal to it going toward medial groin) - Neurological Neurological: reports: Memory problems (has "put things out of his head to deal with this"). denies: General weakness, Focal weakness, Headache, Pre-existing deficit Prior Level of Functionality: The patient uses a lightweight wheelchair which he manipulates on his own. He is able to transfer from the bed to the chair. And from the chair he can get ar ound his house. He needs quite a bit of help with bathing from his . The bathroom is not set up for his disability. He feeds himself. Needs help dressing from the waist down. Exam - Vital Signs Reviewed Vital Signs: Yes Vital Signs: Vital Signs x48h Temp Pulse Resp BP Pulse Ox 10/29/20 21:30 36.2 C L 84 20 157/90 H 10/29/20 20:36 36.7 C 87 19 188/100 H 100 - Physical Exam General Appearance: positive: No acute distress, Alert, Other (Gravelly voice middle-age male, communicating well, full sentences, lucid with bilateral AKA's both covered with Kerlix dressings.) Eyes Bilateral: positive: PERRL, EOMI ENT: positive: No signs of dehydration, Other (Hoarse voice that is chronic for him) Neck: positive: No JVD, Lymphadenopathy (R), Lymphadenopathy (L). negative: Stiff neck Respiratory: positive: No respiratory distress, Other (Occasional bronchitic cough. He coughed 3 times during my history and my exam and each time it was minimally productive of phlegm that he swallowed.). negative: Wheezes, Rales, Rhonchi Cardiovascular: positive: Regular rate & rhythm, Systolic murmur. negative: Gallop/S4 Abdomen: positive: Non-tender, No organomegaly, Nml bowel sounds, No distention Skin: positive: Warm, Dry, Other (Nursing has taken pictures of both the right stump and the left stump. Large eschars on both legs. Minimal redness and heat on the left 1. The right one has a large eschar with fluctuance and yellow drainage) Extremities: positive: Full ROM (He is able to flex at the hips and bring both legs up voluntarily to show me the end of the stumps.) Neurologic/Psychiatric: positive: Oriented x3, CN's nml (2-12), Motor nml Conclusion/Plan - Problem List (1) Amputation stump necrosis Conclusion/Plan: Both stumps of both legs are not healed. The left stump has an eschar with skin deficit that is medial and moving proximally. The skin moving proximally medially is also red and slightly warm. The right stump has a large eschar right at the end of the stump, with purulent yellow drainage and fluctuance underneath the eschar. Nursing stated that they had used quite a bit of water to remove the dry dressing exudate and the bandage. Plan: [facility] antibiotic guide recommends penicillin and clindamycin. Clindamycin is started. Penicillin is not available on our formulary. In the emergency room the ER doctor ordered cefepime and Vanco. I will not continue those and use c lindamycin and Rocephin. General surgery to see the patient tomorrow morning. As such the patient is n.p.o. after midnight. Pain management is with Tylenol and oxycodone as needed. (2) COPD without exacerbation Conclusion/Plan: He is a current everyday smoker. Does not take any bronchodilators at home. Those will be prescribed as needed for him here if he becomes symptomatic. (3) PAD (peripheral artery disease) Conclusion/Plan: He is on Plavix and cilostazol. Those will be resumed. I will hold off on DVT prophylaxis with Lovenox until tomorrow after surgery. Patient was again counseled on the importance of risk factor management and stopping smoking would help. (4) HTN (hypertension) Conclusion/Plan: During his last stay his usual home medications of losartan and Coreg were resumed. For short time he did need Norvasc. That was not continued at discharge. Blood pressure in the emergency room has come down to 157/90. We will continue to monitor. If needed, we will increase his medication while he is here. Qualifiers: Hypertension type: primary hypertension Qualified Code(s): I10 - Essential (primary) hypertension (5) Chronic pain Conclusion/Plan: He was in the midst of being referred to chronic pain clinic when he first presented at the very beginning of this chronic peripheral vascular disease and first leg amputation. He is not on any chronic pain medications at home. We will use as needed Tylenol, oxycodone while here. 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 (7) Tobacco abuse disorder Conclusion/Plan: And counseled to stop smoking. We will have social work give him information regarding tobacco cessation counseling, treatment, programs, etc. - Lab Results Lab results reviewed: Yes Fish Bones: 10/29/20 21:26 10/29/20 21:26 Core Measures - Anticipated LOS I expect patient to be DC'd or transferred within 96 hours.: Yes - DVT/VTE - Prophylaxis VTE/DVT Device ordered at admit?: Yes
[2020-10-29 22:30] LABS: BILIRUBIN,URINE NEGATIVE (NEGATIVE); GLUCOSE, URINE (UA) NEGATIVE (NEGATIVE); KETONES,URINE (UA) NEGATIVE (NEGATIVE); LEUKOCYTE ESTERASE, URINE NEGATIVE (NEGATIVE); NITRITE,URINE NEGATIVE (NEGATIVE); OCCULT BLOOD,URINE NEGATIVE (NEGATIVE); PROTEIN,URINE NEGATIVE (NEGATIVE); UROBILINOGEN,URINE 0.2 (NORMAL) E.U./dL (NORMAL)
[2020-10-29 22:34] LABS: CLARITY,URINE CLEAR (CLEAR)
[2020-10-29 22:44] LABS: BACTERIA,URINE None Seen /HPF (None Seen); RBC,URINE 0-5 /HPF (0-5); SQUAMOUS EPITHELIAL CELL,UR RARE Squamous (<= Few); WBC,URINE 0-3 /HPF (0-3)
[2020-10-29] MEDS ORDERED: SODIUM CHLORIDE 0.9% 1,000 ML IV SCH (23:00)
[2020-10-29] MEDS ORDERED: CLINDAMYCIN 900 MG/50 ML 50 ML IV SCH (23:00)
[2020-10-29 23:31] LABS: B. PARAPERTUSSIS- RESP PCR PAN NOT DETECTED; B. PERTUSSIS- RESP PCR PANEL NOT DETECTED; C. PNEUMONIAE- RESP PCR PANEL NOT DETECTED; CORONAVIRUS 229E-RESP PCR NOT DETECTED; CORONAVIRUS HKU1-RESP PCR NOT DETECTED; CORONAVIRUS NL63-RESP PCR NOT DETECTED; CORONAVIRUS OC43-RESP PCR NOT DETECTED; HUMAN METAPNEUMOVIRUS NOT DETECTED; INFLUENZA A- RESP PCR PANEL NOT DETECTED; INFLUENZA B - RESP PCR PANEL NOT DETECTED; M. PNEUMONIAE- RESP PCR PANEL NOT DETECTED; PARAINFLUENZA VIRUS 1 NOT DETECTED; PARAINFLUENZA VIRUS 2 NOT DETECTED; PARAINFLUENZA VIRUS 3 NOT DETECTED; PARAINFLUENZA VIRUS 4 NOT DETECTED; RHINOVIRUS/ENTEROVIRUS NOT DETECTED; RSV- RESP PCR PANEL NOT DETECTED; SARS-CoV-2 -RESP PCR PANEL NOT DETECTED
[2020-10-30] MEDS: SODIUM CHLORIDE FLUSH 0.9% 10 ML SYRINGE IVP SCH ×4 (00:02→23:51)
[2020-10-30 05:23] LABS: BASOPHILS # (AUTO) 0.1 10^3/uL (0.0-0.1); BASOPHILS % (AUTO) 0.6 %; EOSINOPHILS # (AUTO) 0.2 10^3/uL (0.0-0.7); EOSINOPHILS % (AUTO) 2.3 %; HCT - HEMATOCRIT 35.2 % (42.0-52.0); HGB - HEMOGLOBIN 10.9 g/dL (14.0-18.0); LYMPHOCYTES # (AUTO) 1.9 10^3/uL (1.5-3.5); LYMPHOCYTES % (AUTO) 23.4 %; MEAN CORPUSCULAR HEMOGLOBIN 26.9 pg (27.0-31.0); MEAN CORPUSCULAR VOLUME 86.9 fL (80.0-94.0); MEAN PLATELET VOLUME 9.1 fL (7.4-11.4); MONOCYTES # (AUTO) 0.8 10^3/uL (0.0-1.0); MONOCYTES % (AUTO) 9.6 %; NEUTROPHILS # (AUTO) 5.1 10^3/uL (1.5-6.6); NEUTROPHILS % (AUTO) 63.8 %; PLT - PLATELET COUNT 258 10^3/uL (130-450); RED BLOOD COUNT 4.05 10^6/uL (4.70-6.10); RED CELL DISTRIBUTION WIDTH 16.1 % (12.0-15.0); WHITE BLOOD COUNT 7.9 x10^3/uL (4.8-10.8)
[2020-10-30 05:50] LABS: CALCIUM 8.8 mg/dL (8.5-10.3); CREATININE 0.6 mg/dL (0.6-1.2); CRP - C-REACTIVE PROTEIN 5.2 mg/dL (0-1.0); POTASSIUM 3.6 mmol/L (3.5-5.0)
--- NOTE | 2020-10-30 07:45 | PROVIDER PROGRESS NOTE ---
Subjective - Prog Note Date Prog Note Date: 10/30/20 - Subjective Subjective: He reports no chest pain or dyspnea. He is looking forward to just having the procedure done today to clean up his right lower extremity wound. He believes this all occurred due to trauma when he was at rehab when he hit his right stump. Current Medications - Current Medications Current Medications: Active Medications Acetaminophen (Acetaminophen 325 Mg Tablet) 650 mg PO Q4HR PRN PRN Reason: Pain 1 to 4 Enoxaparin Sodium (Enoxaparin 40 Mg/0.4 Ml Syringe) 40 mg SUBQ DAILY [facility] Sodium Chloride (Normal Saline 0.9%) 1,000 mls @ 85 mls/hr IV .[id number] [facility] Last Infusion: 10/30/20 03:54 Dose: 85 mls/hr Documented by: Ceftriaxone Sodium 2 gm/ (Sodium Chloride) 100 mls @ 200 mls/hr IV DAILY [facility] Last Admin: 10/30/20 08:33 Dose: 200 mls/hr Documented by: Ondansetron HCl (Ondansetron Odt 4 Mg Tablet) 4 mg TL Q6HR PRN PRN Reason: Nausea / Vomiting Ondansetron HCl (Ondansetron 4 Mg/2 Ml Vial) 4 mg IVP Q6HR PRN PRN Reason: Nausea / Vomiting Oxycodone HCl (Oxycodone 5 Mg Tablet) 5 mg PO Q4HR PRN PRN Reason: Pain 5 to 7 Prochlorperazine Edisylate (Prochlorperazine 10 Mg/2 Ml Vial) 10 mg IVP Q6HR PRN PRN Reason: Nausea / Vomiting Sodium Chloride (Sodium Chloride Flush 0.9% 10 Ml Syringe) 10 ml IVP PRN PRN PRN Reason: NEEDED PER PROVIDER ORDERS Sodium Chloride (Sodium Chloride Flush 0.9% 10 Ml Syringe) 10 ml IVP 0100,0900,1700 [facility] Last Admin: 10/30/20 00:02 Dose: 10 ml Documented by: Vancomycin HCl (Vancomycin: Pharmacy To Dose) 1 each MC ONCE PRN PRN Reason: PER PHARMACY Zolpidem Tartrate (Zolpidem 5 Mg Tablet) 5 mg PO QPM PRN PRN Reason: Insomnia Losartan Potassium [Cozaar] 1 tablet PO DAILY 08/25/20 cilostazoL [Cilostazol] 50 mg PO BID 08/25/20 Aspirin [[place] Aspirin] 81 mg PO DAILY 09/01/20 Carvedilol [Coreg] 12.5 mg PO BID 09/01/20 Clopidogrel [Plavix] 75 mg PO ONCE 10/29/20 Objective - Vital Signs/Intake & Output Reviewed Vital Signs: Yes Intake & Output: Intake & Output 10/27/20 10/28/20 10/29/20 10/30/20 23:59 23:59 23:59 23:59 Intake Total 747.75 Output Total 350 Balance 397.75 - Objective General Appearance: positive: No acute distress, Alert Eyes Bilateral: positive: Normal inspection, Conjunctivae nml ENT: positive: ENT inspection nml Neck: positive: Nml inspection Respiratory: positive: No respiratory distress Skin: positive: Warm, Dry Extremities: positive: Other (The right lower extremity stump has an eschar that has been opened with foul-smelling purulent drainage noted. There is surrounding erythema and warmth. The left lower extremity stump has a wound over the medial aspect without any purulent drainage. Mild erythema.) Neurologic/Psychiatric: negative: Disoriented to person, Disoriented to place - Lab Results Fish Bones: 10/30/20 05:06 10/30/20 05:06 Other Labs: Lab Results x24hrs 10/30/20 10/30/20 10/29/20 Range/Units 05:06 05:06 22:19 WBC 7.9 (4.8-10.8) x10^3/uL RBC 4.05 L (4.70-6.10) 10^6/uL Hgb 10.9 L (14.0-18.0) g/dL Hct 35.2 L (42.0-52.0) % MCV 86.9 (80.0-94.0) fL MCH 26.9 L (27.0-31.0) pg MCHC 31.0 L (32.0-36.0) g/dL RDW 16.1 H (12.0-15.0) % Plt Count 258 (130-450) 10^3/uL MPV 9.1 (7.4-11.4) fL Neut # (Auto) 5.1 (1.5-6.6) 10^3/uL Lymph # (Auto) 1.9 (1.5-3.5) 10^3/uL Burt # (Auto) 0.8 (0.0-1.0) 10^3/uL Eos # (Auto) 0.2 (0.0-0.7) 10^3/uL Baso # (Auto) 0.1 (0.0-0.1) 10^3/uL Absolute Nucleated RBC 0.00 x10^3/uL Nucleated RBC % 0.0 /100WBC Sodium 132 L (135-145) mmol/L Potassium 3.6 (3.5-5.0) mmol/L Chloride 102 (101-111) mmol/L Carbon Dioxide 22 (21-32) mmol/L Anion Gap 8.0 (6-13) BUN 8 (6-20) mg/dL Creatinine 0.6 (0.6-1.2) mg/dL Estimated GFR (MDRD) 139 (>89) Glucose 115 H (70-100) mg/dL Lactic Acid (0.5-2.2) mmol/L Calcium 8.8 (8.5-10.3) mg/dL Total Bilirubin (0.2-1.0) mg/dL AST (10-42) IU/L ALT (10-60) IU/L Alkaline Phosphatase (42-121) IU/L C-Reactive Protein 5.2 H (0-1.0) mg/dL Total Protein (6.7-8.2) g/dL Albumin (3.2-5.5) g/dL Globulin (2.1-4.2) g/dL Albumin/Globulin Ratio (1.0-2.2) Urine Color YELLOW Urine Clarity CLEAR (CLEAR) Urine pH 6.0 (5.0-7.5) PH Ur Specific [place] 1.010 (1.002-1.030) Urine Protein NEGATIVE (NEGATIVE) mg/dL Urine Glucose (UA) NEGATIVE (NEGATIVE) mg/dL Urine Ketones NEGATIVE (NEGATIVE) mg/dL Urine Occult Blood NEGATIVE (NEGATIVE) Urine Nitrite NEGATIVE (NEGATIVE) Urine Bilirubin NEGATIVE (NEGATIVE) Urine Urobilinogen 0.2 (NORMAL) (NORMAL) E.U./dL Ur Leukocyte Esterase NEGATIVE (NEGATIVE) Urine RBC 0-5 (0-5) /HPF Urine WBC 0-3 (0-3) /HPF Ur Squamous Epith Cells RARE Squamous (<= Few) Urine Bacteria None Seen (None Seen) /HPF Urine Culture Comments NOT INDICATED Nasal Adenovirus (PCR) Nasal B. parapertussis DNA (PCR) Nasal Coronavir 229E PCR Nasal Coronavir HKU1 PCR Nasal Coronavir NL63 PCR Nasal Coronavir OC43 PCR Nasal Enterovir/Rhinovir PCR Nasal Influenza B PCR Nasal Influenza A PCR Nasal Parainfluen 1 PCR Nasal Parainfluen 2 PCR Nasal Parainfluen 3 PCR Nasal Parainfluen 4 PCR Nasal RSV (PCR) Nasal B.pertussis DNA PCR Nasal C.pneumoniae (PCR) Jhonny Human Metapneumo PCR Nasal M.pneumoniae (PCR) Nasal SARS-CoV-2 (PCR) 10/29/20 10/29/20 10/29/20 Range/Units 22:19 21:26 21:26 WBC (4.8-10.8) x10^3/uL RBC (4.70-6.10) 10^6/uL Hgb (14.0-18.0) g/dL Hct (42.0-52.0) % MCV (80.0-94.0) fL MCH (27.0-31.0) pg MCHC (32.0-36.0) g/dL RDW (12.0-15.0) % Plt Count (130-450) 10^3/uL MPV (7.4-11.4) fL Neut # (Auto) (1.5-6.6) 10^3/uL Lymph # (Auto) (1.5-3.5) 10^3/uL Burt # (Auto) (0.0-1.0) 10^3/uL Eos # (Auto) (0.0-0.7) 10^3/uL Baso # (Auto) (0.0-0.1) 10^3/uL Absolute Nucleated RBC x10^3/uL Nucleated RBC % /100WBC Sodium 130 L (135-145) mmol/L Potassium 4.0 (3.5-5.0) mmol/L Chloride 99 L (101-111) mmol/L Carbon Dioxide 23 (21-32) mmol/L Anion Gap 8.0 (6-13) BUN 9 (6-20) mg/dL Creatinine 0.6 (0.6-1.2) mg/dL Estimated GFR (MDRD) 139 (>89) Glucose 106 H (70-100) mg/dL Lactic Acid 0.6 (0.5-2.2) mmol/L Calcium 9.2 (8.5-10.3) mg/dL Total Bilirubin 0.5 (0.2-1.0) mg/dL AST 13 (10-42) IU/L ALT 14 (10-60) IU/L Alkaline Phosphatase 53 (42-121) IU/L C-Reactive Protein (0-1.0) mg/dL Total Protein 7.7 (6.7-8.2) g/dL Albumin 3.8 (3.2-5.5) g/dL Globulin 3.9 (2.1-4.2) g/dL Albumin/Globulin Ratio 1.0 (1.0-2.2) Urine Color Urine Clarity (CLEAR) Urine pH (5.0-7.5) PH Ur Specific [place] (1.002-1.030) Urine Protein (NEGATIVE) mg/dL Urine Glucose (UA) (NEGATIVE) mg/dL Urine Ketones (NEGATIVE) mg/dL Urine Occult Blood (NEGATIVE) Urine Nitrite (NEGATIVE) Urine Bilirubin (NEGATIVE) Urine Urobilinogen (NORMAL) E.U./dL Ur Leukocyte Esterase (NEGATIVE) Urine RBC (0-5) /HPF Urine WBC (0-3) /HPF Ur Squamous Epith Cells (<= Few) Urine Bacteria (None Seen) /HPF Urine Culture Comments Nasal Adenovirus (PCR) NOT DETECTED Nasal B. parapertussis DNA (PCR) NOT DETECTED Nasal Coronavir 229E PCR NOT DETECTED Nasal Coronavir HKU1 PCR NOT DETECTED Nasal Coronavir NL63 PCR NOT DETECTED Nasal Coronavir OC43 PCR NOT DETECTED Nasal Enterovir/Rhinovir PCR NOT DETECTED Nasal Influenza B PCR NOT DETECTED Nasal Influenza A PCR NOT DETECTED Nasal Parainfluen 1 PCR NOT DETECTED Nasal Parainfluen 2 PCR NOT DETECTED Nasal Parainfluen 3 PCR NOT DETECTED Nasal Parainfluen 4 PCR NOT DETECTED Nasal RSV (PCR) NOT DETECTED Nasal B.pertussis DNA PCR NOT DETECTED Nasal C.pneumoniae (PCR) NOT DETECTED Jhonny Human Metapneumo PCR NOT DETECTED Nasal M.pneumoniae (PCR) NOT DETECTED Nasal SARS-CoV-2 (PCR) NOT DETECTED 10/29/20 Range/Units 21:26 WBC 8.6 (4.8-10.8) x10^3/uL RBC 4.60 L (4.70-6.10) 10^6/uL Hgb 12.5 L (14.0-18.0) g/dL Hct 39.1 L (42.0-52.0) % MCV 85.0 (80.0-94.0) fL MCH 27.2 (27.0-31.0) pg MCHC 32.0 (32.0-36.0) g/dL RDW 16.3 H (12.0-15.0) % Plt Count 326 (130-450) 10^3/uL MPV 9.2 (7.4-11.4) fL Neut # (Auto) 5.4 (1.5-6.6) 10^3/uL Lymph # (Auto) 2.3 (1.5-3.5) 10^3/uL Burt # (Auto) 0.7 (0.0-1.0) 10^3/uL Eos # (Auto) 0.2 (0.0-0.7) 10^3/uL Baso # (Auto) 0.1 (0.0-0.1) 10^3/uL Absolute Nucleated RBC 0.00 x10^3/uL Nucleated RBC % 0.0 /100WBC Sodium (135-145) mmol/L Potassium (3.5-5.0) mmol/L Chloride (101-111) mmol/L Carbon Dioxide (21-32) mmol/L Anion Gap (6-13) BUN (6-20) mg/dL Creatinine (0.6-1.2) mg/dL Estimated GFR (MDRD) (>89) Glucose (70-100) mg/dL Lactic Acid (0.5-2.2) mmol/L Calcium (8.5-10.3) mg/dL Total Bilirubin (0.2-1.0) mg/dL AST (10-42) IU/L ALT (10-60) IU/L Alkaline Phosphatase (42-121) IU/L C-Reactive Protein (0-1.0) mg/dL Total Protein (6.7-8.2) g/dL Albumin (3.2-5.5) g/dL Globulin (2.1-4.2) g/dL Albumin/Globulin Ratio (1.0-2.2) Urine Color Urine Clarity (CLEAR) Urine pH (5.0-7.5) PH Ur Specific [place] (1.002-1.030) Urine Protein (NEGATIVE) mg/dL Urine Glucose (UA) (NEGATIVE) mg/dL Urine Ketones (NEGATIVE) mg/dL Urine Occult Blood (NEGATIVE) Urine Nitrite (NEGATIVE) Urine Bilirubin (NEGATIVE) Urine Urobilinogen (NORMAL) E.U./dL Ur Leukocyte Esterase (NEGATIVE) Urine RBC (0-5) /HPF Urine WBC (0-3) /HPF Ur Squamous Epith Cells (<= Few) Urine Bacteria (None Seen) /HPF Urine Culture Comments Nasal Adenovirus (PCR) Nasal B. parapertussis DNA (PCR) Nasal Coronavir 229E PCR Nasal Coronavir HKU1 PCR Nasal Coronavir NL63 PCR Nasal Coronavir OC43 PCR Nasal Enterovir/Rhinovir PCR Nasal Influenza B PCR Nasal Influenza A PCR Nasal Parainfluen 1 PCR Nasal Parainfluen 2 PCR Nasal Parainfluen 3 PCR Nasal Parainfluen 4 PCR Nasal RSV (PCR) Nasal B.pertussis DNA PCR Nasal C.pneumoniae (PCR) Jhonny Human Metapneumo PCR Nasal M.pneumoniae (PCR) Nasal SARS-CoV-2 (PCR) ABX Reporting Has patient been on IV antibiotics over the past 48 hours?: Yes Assessment/Plan - Problem List (1) Amputation stump necrosis Impression: His right above-knee amputation stump appears infected with necrotic tissue distally. There is purulent drainage noted from the stump. We have him on va ncomycin and ceftriaxone empirically. Preliminary wound culture is growing beta-hemolytic strep group B. Plan is to go to the OR this morning with general surgery for washout and debridement. We will keep him on IV antibiotics and follow-up cultures from the OR. Pain control with oxycodone and morphine as needed. (2) PAD (peripheral artery disease) Impression: He has known peripheral artery disease which unfortunately is no longer amenable to intervention. He now has bilateral [id number] amputations. We are holding his aspirin and Plavix as he undergoes debridement and washout of the right AKA. (3) COPD without exacerbation Impression: Exacerbation. Continue albuterol as needed. (4) HTN (hypertension) Impression: He is hypertensive with systolic in the 150s today. We will resume his home losartan. We will consider adding amlodipine if he remains hypertensive. Qualifiers: Hypertension type: primary hypertension Qualified Code(s): I10 - Essential (primary) hypertension (5) Pancreatic mass Impression: He has a history of a pancreatic mass but has declined work-up of this. He can continue outpatient follow-up for this. (6) Tobacco abuse disorder Impression: He continues to smoke a pack a day despite his peripheral vascular disease. Nicotine patch has been ordered and he has been counseled on the importance of tobacco cessation.
--- NOTE | 2020-10-30 07:59 | XRAY Report ---
PROCEDURE: Knee 2 View RT INDICATIONS: knee amputation, infection TECHNIQUE: 2 views of the right knee(s) were acquired. COMPARISON: None. FINDINGS: Bones: An [id number] amputation is seen. At the level of the distal femoral shaft stump, there is no significant lytic process seen. Soft tissues: The soft tissue stump is irregular, with potential soft tissue gas. Atherosclerotic stanley cification is seen. IMPRESSION: Soft tissue irregularity seen. No cesilia bony lysis can be seen. If there is strong clinical concern for developing osteomyelitis in this patient with this given hist ory, then please consider a dedicated MRI (without and with contrast) for further evaluation (assumin g that there is no contraindication). Note: No significant discrepancy from the preliminary report. Reviewed by: Chadwick Prieto MD on 10/30/2020 6:57 AM ANTOINETTE Approved by: Chadwick Prieto MD on 10/30/2020 6:57 AM ANTOINETTE Station ID: [id number]
[2020-10-30] MEDS: cefTRIAXone 2 GM in SODIUM CHLORIDE 0.9% MINIBAG 100 ML IV SCH (08:33)
[2020-10-30] MEDS ORDERED: LIDOCAINE-MPF 2% 5 ML VIAL ONE (08:43)
[2020-10-30] MEDS ORDERED: MIDAZOLAM 2 MG/2 ML VIAL ONE (08:43)
[2020-10-30] MEDS ORDERED: fentaNYL 100 MCG/2 ML VIAL ONE (08:43)
[2020-10-30] MEDS ORDERED: PROPOFOL 200 MG/20 ML VIAL IVP ONE (08:43)
--- NOTE | 2020-10-30 08:54 | CONSULTATION NOTE ---
Surgery Consult - Admit Date Hospital Admission Date: 10/29/20 - Home Meds/Allergies Home Medications: Patient History Medication Instructions Recorded Confirmed Losartan Potassium [Cozaar] 1 tablet PO DAILY 08/25/20 10/29/20 cilostazoL [Cilostazol] 50 mg PO BID 08/25/20 10/29/20 Aspirin [[place] Aspirin] 81 mg PO DAILY 09/01/20 10/29/20 Carvedilol [Coreg] 12.5 mg PO BID 09/01/20 10/29/20 Clopidogrel [Plavix] 75 mg PO ONCE 10/29/20 10/29/20 Allergies/Adverse Reactions: Allergies Allergy/AdvReac Type Severity Reaction Status Date / Time No Known Drug Allergies Allergy Verified 10/29/20 20:36 - Vital Signs Vital Signs: Last Vital Signs Temp 36.5 C 10/30/20 07:45 Pulse 82 10/30/20 07:45 Resp 21 10/30/20 07:45 BP 161/85 H 10/30/20 07:45 Pulse Ox 98 10/30/20 07:45 Intake & Output: Intake & Output 10/27/20 10/28/20 10/29/20 10/30/20 23:59 23:59 23:59 23:59 Intake Total 747.75 Output Total 350 Balance 397.75 - Lab Results Result Diagrams: 10/30/20 05:06 10/30/20 05:06 - Consultation Note Consultation Note: Called to see patient due to problem with prior R AKA from [facility] 09/12. Pt is a severe vasculopath with prior L AKA many years ago due to both PVD/ly mphedema/non compliance and minor trauma. He has been recovering in rehab where he reportedly had a bump into a wall while being pushed in wheelchair. Over the last few days he has had increased drainage and he presented to the ER. Of note, he still has had tobacco use and seems to have difficulty with follow up and wound care. Pt denies fever, chills, emesis. He has no Hx DM (HgbA1c 6) He states there is no pain but is very frustrated and wants to have the closed so he can get out of the hospital. I tried speaking with him regarding the need for appropriate debridement with wound care a priority to hepofeully prevent revision AKA. ROS: reviewed and unotherwise non remarkable PMH/PSH: reviewed chart PE: AVSS GEN: NAD, aggravated personality RESP: non labored, symmetric ABD: benign EXT BILATERAL AKA RIGHT: distal necrosis, foul odor separation with cellullitis and necrotic adipose LEFT : medial wound with large superficial collections ? prior collagenase dressing A/P 1. Post operative R AKA stump breakdown with active infection. Cont IV Abx. Would recommend addition of VANCO due to prior MRSA and long hospitalization/rehab 2. Hold dual anti platelet for now 3. Plan on I&D in OR this am. Pt reluctant to have wound dressing/open wound. I explained there is not another option. May be a candidate for wound VAC 2-3 days 4. Overall poor prognosis with biilateral AKA and non compliance. Enforcce with PCP vs palliative consult. At one point pt stated he didnt want more but we keep cutting off parts to save his life and maybe he should just . In the acute setting this is somewhat understandable. Specifically, the patient had no SI/HI ideation. I am not sure he fully understands the complexity of his medical/social issues.
--- NOTE | 2020-10-30 08:55 | ANESTHESIA ---
Pre-Anesthesia VS, & Labs - Diagnosis B LE sepsis - Procedure B LE I&D of BKAs Vital Signs: Temp Pulse Resp BP Pulse Ox 36.5 C 82 21 161/85 H 98 10/30/20 07:45 10/30/20 07:45 10/30/20 07:45 10/30/20 07:45 10/30/20 07:45 Height: 5 ft 9 in Weight (kg): 66.5 kg Body Mass Index: 21.6 BMI Classification: Healthy weight - NPO >8 hours - Lab Results Current Lab Results: Laboratory Tests 10/30/20 05:06: Sodium 132 L, Potassium 3.6, Chloride 102, Carbon Dioxide 22, Anion Gap 8.0, BUN 8, Creatinine 0.6, Estimated GFR (MDRD) 139, Glucose 115 H, Calcium 8.8, C-Reactive Protein 5.2 H 10/30/20 05:06: WBC 7.9, RBC 4.05 L, Hgb 10.9 L, Hct 35.2 L, MCV 86.9, MCH 26.9 L, MCHC 31.0 L, RDW 16.1 H, Plt Count 258, MPV 9.1, Neut # (Auto) 5.1, Lymph # (Auto) 1.9, [place] # (Auto) 0.8, Eos # (Auto) 0.2, Baso # (Auto) 0.1, Absolute Nucleated RBC 0.00, Nucleated RBC % 0.0 10/29/20 21:26: Lactic Acid 0.6 10/29/20 21:26: Sodium 130 L, Potassium 4.0, Chloride 99 L, Carbon Dioxide 23, Anion Gap 8.0, BUN 9, Creatinine 0.6, Estimated GFR (MDRD) 139, Glucose 106 H, Calcium 9.2, Total Bilirubin 0.5, AST 13, ALT 14, Alkaline Phosphatase 53, Total Protein 7.7, Albumin 3.8, Globulin 3.9, Albumin/Globulin Ratio 1.0 10/29/20 21:26: WBC 8.6, RBC 4.60 L, Hgb 12.5 L, Hct 39.1 L, MCV 85.0, MCH 27.2, MCHC 32.0, RDW 16.3 H, Plt Count 326, MPV 9.2, Neut # (Auto) 5.4, Lymph # (Auto) 2.3, [place] # (Auto) 0.7, Eos # (Auto) 0.2, Baso # (Auto) 0.1, Absolute Nucleated RBC 0.00, Nucleated RBC % 0.0 Fish Bones: 10/30/20 05:06 10/30/20 05:06 Home Medications and Allergies Home Medications: Ambulatory Orders Clopidogrel [Plavix] 75 mg PO ONCE 10/29/20 Active Medications Acetaminophen (Acetaminophen 325 Mg Tablet) 650 mg PO Q4HR PRN PRN Reason: Pain 1 to 4 Enoxaparin Sodium (Enoxaparin 40 Mg/0.4 Ml Syringe) 40 mg SUBQ DAILY [facility] Sodium Chloride (Normal Saline 0.9%) 1,000 mls @ 85 mls/hr IV .[id number] [facility] Last Infusion: 10/30/20 03:54 Dose: 85 mls/hr Documented by: Clindamycin Phosphate (Cleocin 900 Mg/50 Ml) 50 mls @ 50 mls/hr IV Q8H [facility] Ceftriaxone Sodium 2 gm/ (Sodium Chloride) 100 mls @ 200 mls/hr IV DAILY [facility] Last Admin: 10/30/20 08:33 Dose: 200 mls/hr Documented by: Ondansetron HCl (Ondansetron Odt 4 Mg Tablet) 4 mg TL Q6HR PRN PRN Reason: Nausea / Vomiting Ondansetron HCl (Ondansetron 4 Mg/2 Ml Vial) 4 mg IVP Q6HR PRN PRN Reason: Nausea / Vomiting Oxycodone HCl (Oxycodone 5 Mg Tablet) 5 mg PO Q4HR PRN PRN Reason: Pain 5 to 7 Prochlorperazine Edisylate (Prochlorperazine 10 Mg/2 Ml Vial) 10 mg IVP Q6HR PRN PRN Reason: Nausea / Vomiting Sodium Chloride (Sodium Chloride Flush 0.9% 10 Ml Syringe) 10 ml IVP PRN PRN PRN Reason: NEEDED PER PROVIDER ORDERS Sodium Chloride (Sodium Chloride Flush 0.9% 10 Ml Syringe) 10 ml IVP 0100,0900,1700 [facility] Last Admin: 10/30/20 00:02 Dose: 10 ml Documented by: Zolpidem Tartrate (Zolpidem 5 Mg Tablet) 5 mg PO QPM PRN PRN Reason: Insomnia Losartan Potassium [Cozaar] 1 tablet PO DAILY 08/25/20 cilostazoL [Cilostazol] 50 mg PO BID 08/25/20 Aspirin [[place] Aspirin] 81 mg PO DAILY 09/01/20 Carvedilol [Coreg] 12.5 mg PO BID 09/01/20 Clopidogrel [Plavix] 75 mg PO ONCE 10/29/20 Allergies/Adverse Reactions: Allergies Allergy/AdvReac Type Severity Reaction Status Date / Time No Known Drug Allergies Allergy Verified 10/29/20 20:36 Anes History & Medical History - Anesthetic History Anesthesia Complications: reports: No previous complications Family history of Anesthesia Complications: Denies Family history of Malignant Hyperthermia: Denies - Medical History Cardiovascular: reports: Hypertension, High cholesterol, Peripheral Vascular Disease, Other Pulmonary: reports: Sleep apnea Gastrointestinal: reports: Pancreatitis, Other Urinary: reports: None Neuro: reports: Head injury, Headaches, Peripheral neuropathy Musculoskeletal: reports: Chronic back pain Endocrine/Autoimmune: reports: Other Blood Disorders: reports: None Skin: reports: None Smoking Status: Current every day smoker - Surgical History Eyes Ears Nose Throat (EENT): reports: Cataracts, Other Cardiothoracic: reports: Angioplasty Orthopedic: reports: Amputation Exam General: Alert, Oriented x3, Cooperative Dental: WNL Mouth Openin Fingerbreadth Neck Mobility: Normal Mallampati classification: II Thyromental Distance: 4-6 cm Respiratory: Lungs clear, Normal breath sounds Cardiovascular: Regular rate Neurological: Normal speech Mental/Cognitive Status: Alert/Oriented X3 Cognitive Status: Within normal limits Plan Anesthesia Type: General Regional Block: Per Surgeon's request for Post Op pain control Consent for Procedure(s) Verified and Reviewed: Yes Code Status: Attempt Resuscitation ASA classification: 3-Severe systemic disease Is this case an emergency?: No
[2020-10-30] MEDS ORDERED: ONDANSETRON 4 MG/2 ML VIAL IVP PRN (08:59)
[2020-10-30] MEDS ORDERED: METOCLOPRAMIDE 10 MG/2 ML VIAL IVP PRN (08:59)
[2020-10-30] MEDS ORDERED: NALOXONE 0.4 MG/ML VIAL IVP PRN (08:59)
[2020-10-30] MEDS ORDERED: ATROPINE ABBOJECT 1 MG/10 ML SYRINGE IVP PRN (08:59)
[2020-10-30] MEDS ORDERED: ePHEDrine 50 MG/ML VIAL IVP PRN (08:59)
[2020-10-30] MEDS ORDERED: MORPHINE 2 MG/ML CARPUJECT IVP PRN ×2 (08:59→10:51)
[2020-10-30] MEDS ORDERED: HYDROmorphone 0.5 MG/0.5 ML SYRINGE IVP PRN (08:59)
[2020-10-30] MEDS ORDERED: fentaNYL 100 MCG/2 ML VIAL IVP PRN (08:59)
[2020-10-30] MEDS ORDERED: cefTRIAXone 2 GM VIAL IVP SCH (09:00)
[2020-10-30] MEDS ORDERED: LACTATED RINGERS 1,000 ML IV SCH (09:00)
--- NOTE | 2020-10-30 09:03 | OPERATIVE REPORT ---
Operative Report - General Admit Date: 10/29/20 - Other Other Information/Narrative: Patient Name: Jacek Chou Preoperative Diagnosis: R AKA stump infection, wound infection L AKA Postoperative Diagnosis: Same Procedure: Bilateral upper lid blepharopoasty, (CPT 49826) Surgeon: Pa Chairez M.D. Cellular Biologist: N/A Anesthesia: GETA Anesthesia provider: Greg Carrero CRNA Indication: This is a 55yo man with PVD and prior R AKA 09/12. He presents at this time with necrotic and infected stump. He also has a non healing wound on L AKA site. The procedure, alternatives, risks and limitations in this individual case have been very carefully discussed with the patient. All questions have been thoroughly answered, and the patient understands the surgery indicated. Operative note: The patient was brought into the operating room and placed in the supine position on the operating table. Bilateral lower extremities were prepped and draped in sterile fashion. Sharp dissection of the R AKA stump using a combination of [place] and electrocautery was performed removing necrotic tissue. This included skin, adipose tissue and some fascia. Dimensions approximately 10x8cm. There was a large amount of foul smelling fluid deep superior and posterior. Fluid and tissue sent for culture Hemostasis was assured. 1/2 strength betadyne was applied with Kerlex followed by 4x4s, abd pad and then Kerlex wrap. L AKA site was washed with sponge and looked clean. Xeroform dressing and Kerlix to be applied. The procedures were completed without complication and tolerated well. The patient left the operating room in satisfactory condition. EBL: <5mL Specimen: Necrotic tissue/adipose from R AKA stump Disposition: to PACU then floor
[2020-10-30] MEDS ORDERED: DEXAMETHASONE 4 MG/ML VIAL ONE (09:39)
[2020-10-30] MEDS ORDERED: ONDANSETRON 4 MG/2 ML VIAL ONE (09:39)
--- NOTE | 2020-10-30 09:54 | PHARMACY PROGRESS NOTE ---
- Best Possible Medication History Admit Date and Time: 10/29/20 5908 Processed by: Nursing Medication History completed: Yes Patient Interview: Completed Secondary Source(s): Pharmacy records, Insurance records As the person ultimately responsible for medication therapy, providers are able to order a medication from an existing home medication list in [facility] via the "Reconcile Routine" prior to Confirmation of that medication by technical support agent. Such practice is discouraged except when the physician, in their clinical judgment, deems that a medical need exists for a medication without regard to previous use.
[2020-10-30] MEDS ORDERED: LACTATED RINGERS 1,000 ML IV ONE (10:00)
--- NOTE | 2020-10-30 10:32 | ANESTHESIA POST OP EVALUATION ---
Anesthesia Post Eval - Post Anesthesia Eval Vitals: Last Vital Signs Temp 36.5 C 10/30/20 10:25 Pulse 81 10/30/20 10:25 Resp 17 10/30/20 10:25 BP 140/73 H 10/30/20 10:25 Pulse Ox 98 10/30/20 10:25 CV Function Including HR & BP: Stable Pain Control: Satisfactory Nausea & Vomiting: Negative Mental Status: Baseline Respiratory Status: Airway Patent Hydration Status: Satisfactory Anesthesia Complications: None
[2020-10-30] MEDS: oxyCODONE 5 MG TABLET PO PRN (10:56)
[2020-10-30] MEDS ORDERED: CLINDAMYCIN 900 MG/50 ML 50 ML IV SCH (11:00)
[2020-10-30] MEDS: VANCOMYCIN INJ 1 GM, VANCOMYCIN INJ 250 MG in SODIUM CHLORIDE 0.9% 250 ML IV SCH ×2 (12:36→23:52)
[2020-10-30] MEDS: ENOXAPARIN 40 MG/0.4 ML SYRINGE SUBQ SCH (12:38)
--- NOTE | 2020-10-30 13:11 | PHARMACY PROGRESS NOTE ---
- Therapy Status Vancomycin regimen day #: 2 Therapy status: Awaiting steady state Basis for treatment: Empirical Treatment indication: amputation stump infection Trough goal: 15-20 Concurrent antibiotics: ceftriaxone - HEENA Risk Risk level for Acute Kidney Injury: Low Acute Kidney Injury risk factors: Goal trough >15 - Monitoring and Recommendation Clinical response to treatment: I&O Previous 24 hours 10/28/20 10/29/20 10/30/20 23:59 23:59 23:59 Intake Total 1415.00 Output Total 350 Balance 1065.00 Lab Results 10/30/20 10/29/20 05:06 21:26 BUN 8 9 Creatinine 0.6 0.6 Estimated GFR (MDRD) 139 139 Cultures 10/30/20 09:55 Thigh - Right Wound Culture - Preliminary 10/30/20 09:55 Other - Wound Body Fluid Culture - Preliminary 10/30/20 09:55 Thigh - Right Wound Culture - Preliminary 10/29/20 22:13 Thigh - Right Wound Culture - Preliminary Monitoring plan: Daily serum creatinine Next trough due prior to maintenance dose #: 5 Next trough due (date/time): 11/01 at 1130 Areas for additional monitoring: IV to PO when appropriate, Therapy de- escalation based on culture results Pharmacy recommendation: Continue current regime
[2020-10-30] MEDS ORDERED: ALBUTEROL NEB 2.5 MG/3 ML INH PRN (15:59)
[2020-10-30] MEDS: LOSARTAN 50 MG TABLET PO SCH (16:44)
[2020-10-30] MEDS: diphenhydrAMINE 25 MG CAPSULE PO PRN (19:49)
[2020-10-31 05:39] LABS: BASOPHILS % (AUTO) 0.5 %; EOSINOPHILS % (AUTO) 0.3 %; HCT - HEMATOCRIT 37.5 % (42.0-52.0); HGB - HEMOGLOBIN 11.9 g/dL (14.0-18.0); LYMPHOCYTES # (AUTO) 1.7 10^3/uL (1.5-3.5); LYMPHOCYTES % (AUTO) 20.9 %; MEAN CORPUSCULAR HEMOGLOBIN 26.9 pg (27.0-31.0); MEAN CORPUSCULAR HGB CONC 31.7 g/dL (32.0-36.0); MEAN CORPUSCULAR VOLUME 84.7 fL (80.0-94.0); MEAN PLATELET VOLUME 10.6 fL (7.4-11.4); MONOCYTES # (AUTO) 0.6 10^3/uL (0.0-1.0); NEUTROPHILS # (AUTO) 5.5 10^3/uL (1.5-6.6); NEUTROPHILS % (AUTO) 70.2 %; PLT - PLATELET COUNT 310 10^3/uL (130-450); RED BLOOD COUNT 4.43 10^6/uL (4.70-6.10); RED CELL DISTRIBUTION WIDTH 15.9 % (12.0-15.0); WHITE BLOOD COUNT 7.9 x10^3/uL (4.8-10.8)
[2020-10-31 06:41] LABS: CALCIUM 8.9 mg/dL (8.5-10.3); CREATININE 0.8 mg/dL (0.6-1.2); CRP - C-REACTIVE PROTEIN 5.4 mg/dL (0-1.0); POTASSIUM 4.1 mmol/L (3.5-5.0)
--- NOTE | 2020-10-31 07:44 | PROVIDER PROGRESS NOTE ---
Subjective - Prog Note Date Prog Note Date: 10/31/20 - Subjective Subjective: Reports the pain in his right lower extremity is relatively controlled. Denies chest pain or dyspnea. He just wants to go home as soon as he can. Current Medications - Current Medications Current Medications: Active Medications Acetaminophen (Acetaminophen 325 Mg Tablet) 650 mg PO Q4HR PRN PRN Reason: Pain 1 to 4 Albuterol (Albuterol Neb 2.5 Mg/3 Ml) 2.5 mg INH RTQ4H PRN PRN Reason: Wheezing Diphenhydramine HCl (Diphenhydramine 25 Mg Capsule) 25 mg PO QPM PRN PRN Reason: Insomnia Last Admin: 10/30/20 19:49 Dose: 25 mg Documented by: Enoxaparin Sodium (Enoxaparin 40 Mg/0.4 Ml Syringe) 40 mg SUBQ DAILY [facility] Last Admin: 10/30/20 12:38 Dose: 40 mg Documented by: Ceftriaxone Sodium 2 gm/ (Sodium Chloride) 100 mls @ 200 mls/hr IV DAILY [facility] Last Infusion: 10/30/20 09:27 Dose: Infused Documented by: Vancomycin HCl 1 gm/Vancomycin HCl 250 mg/ Sodium Chloride 250 mls @ 167 mls/hr IV Q12H [facility] Last Infusion: 10/31/20 01:22 Dose: Infused Documented by: Losartan Potassium (Losartan 50 Mg Tablet) 50 mg PO DAILY [facility] Last Admin: 10/30/20 16:44 Dose: 50 mg Documented by: Morphine Sulfate (Morphine 2 Mg/Ml Carpuject) 2 mg IVP Q2HR PRN PRN Reason: PAIN Nicotine (Nicotine 21 Mg Patch) 1 patch TOP DAILY [facility] Ondansetron HCl (Ondansetron Odt 4 Mg Tablet) 4 mg TL Q6HR PRN PRN Reason: Nausea / Vomiting Ondansetron HCl (Ondansetron 4 Mg/2 Ml Vial) 4 mg IVP Q6HR PRN PRN Reason: Nausea / Vomiting Oxycodone HCl (Oxycodone 5 Mg Tablet) 5 mg PO Q4HR PRN PRN Reason: Pain 5 to 7 Last Admin: 10/30/20 10:56 Dose: 5 mg Documented by: Prochlorperazine Edisylate (Prochlorperazine 10 Mg/2 Ml Vial) 10 mg IVP Q6HR PRN PRN Reason: Nausea / Vomiting Sodium Chloride (Sodium Chloride Flush 0.9% 10 Ml Syringe) 10 ml IVP PRN PRN PRN Reason: NEEDED PER PROVIDER ORDERS Sodium Chloride (Sodium Chloride Flush 0.9% 10 Ml Syringe) 10 ml IVP 0100,0900,1700 [facility] Last Admin: 10/30/20 23:51 Dose: 10 ml Documented by: Losartan Potassium [Cozaar] 1 tablet PO DAILY 08/25/20 cilostazoL [Cilostazol] 50 mg PO BID 08/25/20 Aspirin [Hill Aspirin] 81 mg PO DAILY 09/01/20 Carvedilol [Coreg] 12.5 mg PO BID 09/01/20 Clopidogrel [Plavix] 75 mg PO DAILY 10/29/20 Objective - Vital Signs/Intake & Output Reviewed Vital Signs: Yes Intake & Output: Intake & Output 10/28/20 10/29/20 10/30/20 10/31/20 23:59 23:59 23:59 23:59 Intake Total 3740.00 750 Output Total 1250 1700 Balance 2490.00 -950 - Objective General Appearance: positive: No acute distress, Alert Eyes Bilateral: positive: Normal inspection, Conjunctivae nml ENT: positive: ENT inspection nml Neck: positive: Nml inspection Respiratory: positive: No respiratory distress. negative: Wheezes Cardiovascular: positive: Regular rate & rhythm. negative: Tachycardia Extremities: positive: Other (Bilateral AKA's noted. Dressing is in place over both of these stumps. The right lower extremity dressing is somewhat saturated over the posterior aspect of the stump.) - Lab Results Fish Bones: 10/31/20 05:00 10/31/20 06:15 Other Labs: Lab Results x24hrs 10/31/20 10/31/20 Range/Units 06:15 05:00 WBC 7.9 (4.8-10.8) x10^3/uL RBC 4.43 L (4.70-6.10) 10^6/uL Hgb 11.9 L (14.0-18.0) g/dL Hct 37.5 L (42.0-52.0) % MCV 84.7 (80.0-94.0) fL MCH 26.9 L (27.0-31.0) pg MCHC 31.7 L (32.0-36.0) g/dL RDW 15.9 H (12.0-15.0) % Plt Count 310 (130-450) 10^3/uL MPV 10.6 (7.4-11.4) fL Neut # (Auto) 5.5 (1.5-6.6) 10^3/uL Lymph # (Auto) 1.7 (1.5-3.5) 10^3/uL [place] # (Auto) 0.6 (0.0-1.0) 10^3/uL Eos # (Auto) 0.0 (0.0-0.7) 10^3/uL Baso # (Auto) 0.0 (0.0-0.1) 10^3/uL Absolute Nucleated RBC 0.00 x10^3/uL Nucleated RBC % 0.0 /100WBC Sodium 129 L (135-145) mmol/L Potassium 4.1 (3.5-5.0) mmol/L Chloride 98 L (101-111) mmol/L Carbon Dioxide 21 (21-32) mmol/L Anion Gap 10.0 (6-13) BUN 6 (6-20) mg/dL Creatinine 0.8 (0.6-1.2) mg/dL Estimated GFR (MDRD) 100 (>89) Glucose 212 H (70-100) mg/dL Calcium 8.9 (8.5-10.3) mg/dL C-Reactive Protein 5.4 H (0-1.0) mg/dL ABX Reporting Has patient been on IV antibiotics over the past 48 hours?: Yes Assessment/Plan - Problem List (1) Amputation stump necrosis Impression: 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 In the distal aspect of the stump appeared necrotic with purulent drainage. He went to the OR yesterday with general surgery for washout and debridement. The plan is to keep the wound open and to continue IV antibiotics with vancomycin and ceftriaxone. Cultures are growing beta-hemolytic strep group B and wound cultures from the OR are pending but preliminary are growing gram-positive cocci. We will discussew ith general surgery today and orthopedic surgery if there will be a need for further intervention such as debridement/washout. We will keep him on IV antibiotics with today being day 2. He may ultimately need a wound VAC and will need outpatient follow-up with wound care. Continue pain control with oxycodone and morphine as needed. (2) PAD (peripheral artery disease) Impression: He has known peripheral artery disease which unfortunately is no longer amenable to intervention. He now has bilateral [id number] amputations. We are holding his aspirin and Plavix as he may need further surgical intervention. (3) COPD without exacerbation Impression: This is not an exacerbation. Continue albuterol as needed. (4) HTN (hypertension) Impression: He is hypertensive with systolics in the 150s. We already resumed his losartan and we will resume his carvedilol today. We will consider adding amlodipine if needed. Qualifiers: Hypertension type: primary hypertension Qualified Code(s): I10 - Essential (primary) hypertension (5) Pancreatic mass Impression: He has a history of a pancreatic mass but has declined work-up of this. He can continue to follow up on outpatient basis for this. (6) Tobacco abuse disorder Impression: He continues to smoke a pack a day despite his peripheral vascular disease. Nicotine patch has been ordered and he has been counseled on the importance of tobacco cessation.
[2020-10-31] MEDS: carvediloL 12.5 MG TABLET PO SCH ×2 (08:57→20:34)
[2020-10-31] MEDS: ENOXAPARIN 40 MG/0.4 ML SYRINGE SUBQ SCH (08:57)
[2020-10-31] MEDS: LOSARTAN 50 MG TABLET PO SCH (08:57)
[2020-10-31] MEDS: SODIUM CHLORIDE FLUSH 0.9% 10 ML SYRINGE IVP SCH ×3 (08:58→23:56)
[2020-10-31] MEDS: NICOTINE 21 MG PATCH TOP SCH (09:01)
[2020-10-31] MEDS: cefTRIAXone 2 GM in SODIUM CHLORIDE 0.9% MINIBAG 100 ML IV SCH (09:12)
[2020-10-31 09:38] LABS: ESTIMATED AVERAGE GLUCOSE 111 mg/dL (70-100); HEMOGLOBIN A1c% 5.5 % (4.27-6.07)
[2020-10-31] MEDS: VANCOMYCIN INJ 1 GM, VANCOMYCIN INJ 250 MG in SODIUM CHLORIDE 0.9% 250 ML IV SCH ×2 (11:39→23:55)
[2020-10-31] MEDS: LACTOBACILLUS RHAMNOSUS GG CAPSULE PO SCH (14:30)
[2020-10-31] MEDS: ZINC SULFATE 220 MG CAPSULE PO SCH (14:30)
[2020-10-31] MEDS: MULTIVITAMIN W/MINERALS TABLET PO SCH (14:31)
[2020-10-31] MEDS: ASCORBIC ACID 500 MG TABLET PO SCH (14:31)
--- NOTE | 2020-10-31 16:30 | PROVIDER PROGRESS NOTE ---
Subjective - General Admit Date: 10/29/20 Procedure Date: 10/30/20 Post Op Days: 1 Procedure Performed: Debridement of left AKA wound - Review of Systems Wound/Incisions: positive: Dressing dry and intact General: positive: No symptoms HEENT: positive: No symptoms Pulmonary: positive: No symptoms Cardiovascular: positive: No symptoms Gastrointestinal: positive: No symptoms Genitourinary: positive: No symptoms Musculoskeletal: positive: No symptoms Skin: positive: No symptoms All Other Systems: positive: Reviewed and negative - Other Other Information/Narrative: Complaining of pain in bilateral LE stumps. More on the left than the right. Has many questions about wound care and wants to go home. Objective - Patient Data Reviewed Vital Signs: Yes Vital Signs: Vital Signs x48h Temp Pulse Pulse Resp BP Pulse Ox 10/31/20 16:00 36.5 C 72 18 143/79 H 98 10/31/20 12:45 74 20 Weight: Weight 10/29/20 10/30/20 10/31/20 23:59 23:59 23:59 Weight (kg) 66.5 kg 66.5 kg Intake & Output: Intake and Output Totals x24h 10/29/20 10/30/20 10/31/20 23:59 23:59 23:59 Intake Total 3740.00 2020.00 Output Total 1250 1700 Balance 2490.00 320.00 - Lab Results Lab Results: 10/31/20 05:00 10/31/20 06:15 Other Lab Results: Lab Results x24hrs 10/31/20 10/31/20 10/31/20 Range/Units 06:15 05:00 05:00 WBC 7.9 (4.8-10.8) x10^3/uL RBC 4.43 L (4.70-6.10) 10^6/uL Hgb 11.9 L (14.0-18.0) g/dL Hct 37.5 L (42.0-52.0) % MCV 84.7 (80.0-94.0) fL MCH 26.9 L (27.0-31.0) pg MCHC 31.7 L (32.0-36.0) g/dL RDW 15.9 H (12.0-15.0) % Plt Count 310 (130-450) 10^3/uL MPV 10.6 (7.4-11.4) fL Neut # (Auto) 5.5 (1.5-6.6) 10^3/uL Lymph # (Auto) 1.7 (1.5-3.5) 10^3/uL [place] # (Auto) 0.6 (0.0-1.0) 10^3/uL Eos # (Auto) 0.0 (0.0-0.7) 10^3/uL Baso # (Auto) 0.0 (0.0-0.1) 10^3/uL Absolute Nucleated RBC 0.00 x10^3/uL Nucleated RBC % 0.0 /100WBC Sodium 129 L (135-145) mmol/L Potassium 4.1 (3.5-5.0) mmol/L Chloride 98 L (101-111) mmol/L Carbon Dioxide 21 (21-32) mmol/L Anion Gap 10.0 (6-13) BUN 6 (6-20) mg/dL Creatinine 0.8 (0.6-1.2) mg/dL Estimated GFR (MDRD) 100 (>89) Glucose 212 H (70-100) mg/dL Estimat Average Glucose 111 H (70-100) mg/dL Hemoglobin A1c % 5.5 (4.27-6.07) % Calcium 8.9 (8.5-10.3) mg/dL C-Reactive Protein 5.4 H (0-1.0) mg/dL - Current Medications Current Medications: Current Medications Generic Name Dose Route Start Last Admin Trade Name Freq PRN Reason Stop Dose Admin Ascorbic Acid 500 mg 10/31/20 13:00 10/31/20 14:31 Ascorbic Acid 500 Mg Tablet PO 500 mg DAILY [facility] Administration Carvedilol 12.5 mg 10/31/20 09:00 10/31/20 08:57 Carvedilol 12.5 Mg Tablet PO 12.5 mg BID ASH Administration Diphenhydramine HCl 25 mg 10/30/20 15:46 10/30/20 19:49 Diphenhydramine 25 Mg Capsule PO 25 mg QPM PRN Administration Insomnia Enoxaparin Sodium 40 mg 10/30/20 13:00 10/31/20 08:57 Enoxaparin 40 Mg/0.4 Ml Syringe SUBQ 40 mg DAILY [facility] Administration Vancomycin HCl 1 gm/ 250 mls @ 167 mls/hr 10/30/20 12:00 10/31/20 15:18 Vancomycin HCl 250 mg/ Sodium IV Infused Chloride Q12H [facility] Infusion Lactobacillus Rhamnosus 1 cap 10/31/20 13:00 10/31/20 14:30 Lactobacillus Rhamnosus Gg Capsule PO 1 cap DAILY [facility] Administration Losartan Potassium 50 mg 10/30/20 16:01 10/31/20 08:57 Losartan 50 Mg Tablet PO 50 mg DAILY [facility] Administration Multivitamins/Minerals 1 tab 10/31/20 13:00 10/31/20 14:31 Multivitamin W/Minerals Tablet PO 1 tab DAILYWM ASH Administration Nicotine 1 patch 10/31/20 09:00 10/31/20 09:01 Nicotine 21 Mg Patch TOP Not Given DAILY [facility] Oxycodone HCl 5 mg 10/29/20 22:13 10/30/20 10:56 Oxycodone 5 Mg Tablet PO 5 mg Q4HR PRN Administration Pain 5 to 7 Sodium Chloride 10 ml 10/30/20 01:00 10/31/20 08:58 Sodium Chloride Flush 0.9% 10 Ml Syringe IVP 10 ml 0100,0900,1700 ASH Administration Zinc Sulfate 220 mg 10/31/20 13:00 10/31/20 14:30 Zinc Sulfate 220 Mg Capsule PO 11/04/20 14:00 220 mg DAILY [facility] Administration - Physical Exam Wound/Incisions: positive: Other (RLE wound is clean appearing and without foul odor. No frankly necrotic tissue remains) General Appearance: positive: No acute distress, Alert ABX Reporting Has patient been on IV antibiotics over the past 48 hours?: Yes Impression/Plan - Problem List Problem List: Infection and necrosis of right AKA stump - wound is clean now and packed with damp to dry Kurlex Pressure ulceration of left AKA stump - scabs removed and wound dressed with Xeroform gauze and Kurlex. Mr. Chou will need daily dressing changes with likely conversion to VAC dressing in the near future. [facility] by [facility] in the past. I recommend he return to their care following admission. No need for additional surgical debridement.
[2020-10-31] MEDS: oxyCODONE 5 MG TABLET PO PRN (16:33)
[2020-10-31] MEDS: CEFEPIME 2 GM in SODIUM CHLORIDE 0.9% MINIBAG 100 ML IV SCH (20:34)
[2020-10-31] MEDS: diphenhydrAMINE 25 MG CAPSULE PO PRN (20:34)
[2020-11-01 06:08] LABS: BASOPHILS # (AUTO) 0.1 10^3/uL (0.0-0.1); BASOPHILS % (AUTO) 0.9 %; EOSINOPHILS # (AUTO) 0.2 10^3/uL (0.0-0.7); EOSINOPHILS % (AUTO) 2.2 %; HGB - HEMOGLOBIN 11.8 g/dL (14.0-18.0); LYMPHOCYTES # (AUTO) 2.3 10^3/uL (1.5-3.5); LYMPHOCYTES % (AUTO) 34.1 %; MEAN CORPUSCULAR HEMOGLOBIN 27.1 pg (27.0-31.0); MEAN CORPUSCULAR HGB CONC 31.9 g/dL (32.0-36.0); MEAN CORPUSCULAR VOLUME 85.1 fL (80.0-94.0); MEAN PLATELET VOLUME 9.5 fL (7.4-11.4); MONOCYTES # (AUTO) 0.6 10^3/uL (0.0-1.0); MONOCYTES % (AUTO) 9.1 %; NEUTROPHILS # (AUTO) 3.7 10^3/uL (1.5-6.6); NEUTROPHILS % (AUTO) 53.6 %; PLT - PLATELET COUNT 277 10^3/uL (130-450); RED BLOOD COUNT 4.35 10^6/uL (4.70-6.10); RED CELL DISTRIBUTION WIDTH 15.9 % (12.0-15.0); WHITE BLOOD COUNT 6.8 x10^3/uL (4.8-10.8)
[2020-11-01 06:23] LABS: CALCIUM 8.9 mg/dL (8.5-10.3); CREATININE 0.7 mg/dL (0.6-1.2)
[2020-11-01] MEDS: ASCORBIC ACID 500 MG TABLET PO SCH (08:52)
[2020-11-01] MEDS: MULTIVITAMIN W/MINERALS TABLET PO SCH (08:52)
[2020-11-01] MEDS: LOSARTAN 50 MG TABLET PO SCH (08:53)
[2020-11-01] MEDS: SODIUM CHLORIDE FLUSH 0.9% 10 ML SYRINGE IVP SCH ×3 (08:53→23:32)
[2020-11-01] MEDS: LACTOBACILLUS RHAMNOSUS GG CAPSULE PO SCH (08:53)
[2020-11-01] MEDS: carvediloL 12.5 MG TABLET PO SCH ×2 (08:53→21:04)
[2020-11-01] MEDS: ENOXAPARIN 40 MG/0.4 ML SYRINGE SUBQ SCH (08:53)
[2020-11-01] MEDS: ZINC SULFATE 220 MG CAPSULE PO SCH (08:53)
[2020-11-01] MEDS: CEFEPIME 2 GM in SODIUM CHLORIDE 0.9% MINIBAG 100 ML IV SCH ×2 (08:53→21:04)
[2020-11-01] MEDS: NICOTINE 21 MG PATCH TOP SCH (09:00)
[2020-11-01 12:23] LABS: VANCOMYCIN,TROUGH 19.3 ug/mL (10.0-20.0)
[2020-11-01] MEDS: VANCOMYCIN INJ 1 GM, VANCOMYCIN INJ 250 MG in SODIUM CHLORIDE 0.9% 250 ML IV SCH ×2 (13:34→23:31)
[2020-11-01] MEDS: oxyCODONE 5 MG TABLET PO PRN (16:21)
[2020-11-01] MEDS: diphenhydrAMINE 25 MG CAPSULE PO PRN (18:54)
--- NOTE | 2020-11-01 19:26 | PROVIDER PROGRESS NOTE ---
Assessment/Plan - Problem List (1) Amputation stump necrosis Assessment/Plan: s/p debridement on 10/30/[address] Camarena with general surgery. Damp to dry Kurlex dressing on Wound cultures grew beta-hemolytic strep group B, Pseudomonas aeruginosa, staph aureus and Enterococcus species. Patient is on vancomycin and cefepime. General surgery recommends follow-up with wound care center. Patient would likely need a wound VAC. (2) PAD (peripheral artery disease) Assessment/Plan: Currently has bilateral [id number] amputations. We will resume patient's aspirin and Plavix upon discharge. (3) COPD without exacerbation Assessment/Plan: Albuterol as needed (4) HTN (hypertension) Qualifiers: Hypertension type: primary hypertension Qualified Code(s): I10 - Essential (primary) hypertension Assessment/Plan: Stable. On carvedilol 12.5 mg p.o. twice daily, losartan 50 mg p.o. daily. (5) Pancreatic mass Assessment/Plan: Patient declined work-up in the past. He may continue to follow-up on an outpatient basis for this. (6) Tobacco abuse disorder Assessment/Plan: Patient continues to smoke 1 pack of cigarettes a day despite his peripheral vascular disease. Nicotine patch ordered. - Current Meds Current Meds: Current Medications Generic Name Dose Route Start Last Admin Trade Name Freq PRN Reason Stop Dose Admin Ascorbic Acid 500 mg 10/31/20 13:00 11/01/20 08:52 Ascorbic Acid 500 Mg Tablet PO 500 mg DAILY A[facility] Administration Carvedilol 12.5 mg 10/31/20 09:00 11/01/20 08:53 Carvedilol 12.5 Mg Tablet PO 12.5 mg BID ASH Administration Diphenhydramine HCl 25 mg 10/30/20 15:46 11/01/20 18:54 Diphenhydramine 25 Mg Capsule PO 25 mg QPM PRN Administration Insomnia Enoxaparin Sodium 40 mg 10/30/20 13:00 11/01/20 08:53 Enoxaparin 40 Mg/0.4 Ml Syringe SUBQ 40 mg DAILY [facility] Administration Vancomycin HCl 1 gm/ 250 mls @ 167 mls/hr 10/30/20 12:00 11/01/20 15:04 Vancomycin HCl 250 mg/ Sodium IV Infused Chloride Q12H [facility] Infusion Cefepime HCl 2 gm/ Sodium 100 mls @ 200 mls/hr 10/31/20 21:00 11/01/20 09:25 Chloride IV Infused BID [facility] Infusion Lactobacillus Rhamnosus 1 cap 10/31/20 13:00 11/01/20 08:53 Lactobacillus Rhamnosus Gg Capsule PO 1 cap DAILY [facility] Administration Losartan Potassium 50 mg 10/30/20 16:01 11/01/20 08:53 Losartan 50 Mg Tablet PO 50 mg DAILY [facility] Administration Multivitamins/Minerals 1 tab 10/31/20 13:00 11/01/20 08:52 Multivitamin W/Minerals Tablet PO 1 tab DAILYWM ASH Administration Nicotine 1 patch 10/31/20 09:00 11/01/20 09:00 Nicotine 21 Mg Patch TOP Not Given DAILY [facility] Oxycodone HCl 5 mg 10/29/20 22:13 11/01/20 16:21 Oxycodone 5 Mg Tablet PO 5 mg Q4HR PRN Administration Pain 5 to 7 Sodium Chloride 10 ml 10/29/20 22:13 11/01/20 13:32 Sodium Chloride Flush 0.9% 10 Ml Syringe IVP 10 ml PRN PRN Administration NEEDED PER PROVIDER ORDERS Sodium Chloride 10 ml 10/30/20 01:00 11/01/20 16:47 Sodium Chloride Flush 0.9% 10 Ml Syringe IVP 10 ml 0100,0900,1700 ASH Administration Zinc Sulfate 220 mg 10/31/20 13:00 11/01/20 08:53 Zinc Sulfate 220 Mg Capsule PO 11/04/20 14:00 220 mg DAILY [facility] Administration - Lab Result Fish Bone Diagrams: 11/01/20 05:55 11/01/20 05:55 Subjective - Subjective Patient Reports: Other (Resting comfortably in bed. He denied any complaints. He is eager to be discharged.) Objective Vital Signs: Vital Signs - 24 hr 10/31/20 11/01/20 11/01/20 23:51 08:18 09:15 Temperature 36.6 C 36.4 C L Heart Rate 83 Heart Rate [ 70 85 Brachial] Respiratory 17 16 16 Rate Blood Pressure 146/74 H [Left Brachial artery] Blood Pressure 151/93 H [Right Brachial artery] O2 Saturation 97 96 11/01/20 11/01/20 10:28 16:00 Temperature 36.4 C L 36.6 C Heart Rate 83 Heart Rate [ 74 Brachial] Respiratory 16 16 Rate Blood Pressure [Left Brachial artery] Blood Pressure 146/84 H [Right Brachial artery] O2 Saturation 98 98 Oxygen O2 Source Room air I&O (Last 24 Hrs): Intake and Output Totals x24h 10/30/20 10/31/20 11/01/20 23:59 23:59 23:59 Intake Total 3740.00 2670.00 1530 Output Total 1250 3375 1285 Balance 2490.00 -705.00 245 General: Alert, Oriented x3, No acute distress HEENT: PERRLA, EOMI Neck: Supple, No JVD Neuro: Alert, Non Focal, Oriented Times 3 Cardiovascular: Regular rate, No murmurs Respiratory: Chest non-tender, No respiratory distress, Breath sounds nml Abdomen: Normal bowel sounds, Soft Extremities: Other (bilateral AKA wound on right stump currently wrapped) Skin: No rashes - Results Results: Laboratory Results WBC 6.8 x10^3/uL (4.8-10.8) 11/01/20 05:55 RBC 4.35 10^6/uL (4.70-6.10) L 11/01/20 05:55 Hgb 11.8 g/dL (14.0-18.0) L 11/01/20 05:55 Hct 37.0 % (42.0-52.0) L 11/01/20 05:55 MCV 85.1 fL (80.0-94.0) 11/01/20 05:55 MCH 27.1 pg (27.0-31.0) 11/01/20 05:55 MCHC 31.9 g/dL (32.0-36.0) L 11/01/20 05:55 RDW 15.9 % (12.0-15.0) H 11/01/20 05:55 Plt Count 277 10^3/uL (130-450) 11/01/20 05:55 MPV 9.5 fL (7.4-11.4) 11/01/20 05:55 Neut # (Auto) 3.7 10^3/uL (1.5-6.6) 11/01/20 05:55 Lymph # (Auto) 2.3 10^3/uL (1.5-3.5) 11/01/20 05:55 [place] # (Auto) 0.6 10^3/uL (0.0-1.0) 11/01/20 05:55 Eos # (Auto) 0.2 10^3/uL (0.0-0.7) 11/01/20 05:55 Baso # (Auto) 0.1 10^3/uL (0.0-0.1) 11/01/20 05:55 Absolute Nucleated RBC 0.00 x10^3/uL 11/01/20 05:55 Nucleated RBC % 0.0 /100WBC 11/01/20 05:55 Sodium 133 mmol/L (135-145) L 11/01/20 05:55 Potassium 4.0 mmol/L (3.5-5.0) 11/01/20 05:55 Chloride 98 mmol/L (101-111) L 11/01/20 05:55 Carbon Dioxide 25 mmol/L (21-32) 11/01/20 05:55 Anion Gap 10.0 (6-13) 11/01/20 05:55 BUN 13 mg/dL (6-20) 11/01/20 05:55 Creatinine 0.7 mg/dL (0.6-1.2) 11/01/20 05:55 Estimated GFR (MDRD) 116 (>89) 11/01/20 05:55 Glucose 118 mg/dL (70-100) H 11/01/20 05:55 Estimat Average Glucose 111 mg/dL (70-100) H 10/31/20 05:00 Hemoglobin A1c % 5.5 % (4.27-6.07) 10/31/20 05:00 Lactic Acid 0.6 mmol/L (0.5-2.2) 10/29/20 21:26 Calcium 8.9 mg/dL (8.5-10.3) 11/01/20 05:55 Total Bilirubin 0.5 mg/dL (0.2-1.0) 10/29/20 21:26 AST 13 IU/L (10-42) 10/29/20 21:26 ALT 14 IU/L (10-60) 10/29/20 21:26 Alkaline Phosphatase 53 IU/L (42-121) 10/29/20 21:26 C-Reactive Protein 2.0 mg/dL (0-1.0) H 11/01/20 05:55 Total Protein 7.7 g/dL (6.7-8.2) 10/29/20 21:26 Albumin 3.8 g/dL (3.2-5.5) 10/29/20 21:26 Globulin 3.9 g/dL (2.1-4.2) 10/29/20 21:26 Albumin/Globulin Ratio 1.0 (1.0-2.2) 10/29/20 21:26 Urine Color YELLOW 10/29/20 22:19 Urine Clarity CLEAR (CLEAR) 10/29/20 22:19 Urine pH 6.0 PH (5.0-7.5) 10/29/20 22:19 Ur Specific [place] 1.010 (1.002-1.030) 10/29/20 22:19 Urine Protein NEGATIVE mg/dL (NEGATIVE) 10/29/20 22:19 Urine Glucose (UA) NEGATIVE mg/dL (NEGATIVE) 10/29/20 22:19 Urine Ketones NEGATIVE mg/dL (NEGATIVE) 10/29/20 22:19 Urine Occult Blood NEGATIVE (NEGATIVE) 10/29/20 22:19 Urine Nitrite NEGATIVE (NEGATIVE) 10/29/20 22:19 Urine Bilirubin NEGATIVE (NEGATIVE) 10/29/20 22:19 Urine Urobilinogen 0.2 (NORMAL) E.U./dL (NORMAL) 10/29/20 22:19 Ur Leukocyte Esterase NEGATIVE (NEGATIVE) 10/29/20 22:19 Urine RBC 0-5 /HPF (0-5) 10/29/20 22:19 Urine WBC 0-3 /HPF (0-3) 10/29/20 22:19 Ur Squamous Epith Cells RARE Squamous (<= Few) 10/29/20 22:19 Urine Bacteria None Seen /HPF (None Seen) 10/29/20 22:19 Urine Culture Comments NOT INDICATED 10/29/20 22:19 Nasal Adenovirus (PCR) NOT DETECTED 10/29/20 22:19 Nasal B. parapertussis DNA (PCR) NOT DETECTED 10/29/20 22:19 Nasal Coronavir 229E PCR NOT DETECTED 10/29/20 22:19 Nasal Coronavir HKU1 PCR NOT DETECTED 10/29/20 22:19 Nasal Coronavir NL63 PCR NOT DETECTED 10/29/20 22:19 Nasal Coronavir OC43 PCR NOT DETECTED 10/29/20 22:19 Nasal Enterovir/Rhinovir PCR NOT DETECTED 10/29/20 22:19 Nasal Influenza B PCR NOT DETECTED 10/29/20 22:19 Nasal Influenza A PCR NOT DETECTED 10/29/20 22:19 Nasal Parainfluen 1 PCR NOT DETECTED 10/29/20 22:19 Nasal Parainfluen 2 PCR NOT DETECTED 10/29/20 22:19 Nasal Parainfluen 3 PCR NOT DETECTED 10/29/20 22:19 Nasal Parainfluen 4 PCR NOT DETECTED 10/29/20 22:19 Nasal RSV (PCR) NOT DETECTED 10/29/20 22:19 Nasal B.pertussis DNA PCR NOT DETECTED 10/29/20 22:19 Nasal C.pneumoniae (PCR) NOT DETECTED 10/29/20 22:19 Jhonny Human Metapneumo PCR NOT DETECTED 10/29/20 22:19 Nasal M.pneumoniae (PCR) NOT DETECTED 10/29/20 22:19 Nasal SARS-CoV-2 (PCR) NOT DETECTED 10/29/20 22:19 Last Dose Date 11/01/20 11/01/20 11:45 Last Dose Time 0152 11/01/20 11:45 Vancomycin Trough 19.3 ug/mL (10.0-20.0) 11/01/20 11:45 - Procedures Procedures: Procedures DETACHMENT AT RIGHT UPPER LEG, LOW, OPEN APPROACH (09/01/20) EXCISION OF L UP LEG SUBCU/FASCIA, OPEN APPROACH (09/01/20) ABX Reporting Has patient been on IV antibiotics over the past 48 hours?: Yes
[2020-11-02] MEDS: SODIUM CHLORIDE FLUSH 0.9% 10 ML SYRINGE IVP SCH ×2 (08:31→18:18)
[2020-11-02] MEDS: CEFEPIME 2 GM in SODIUM CHLORIDE 0.9% MINIBAG 100 ML IV SCH (08:31)
[2020-11-02] MEDS: carvediloL 12.5 MG TABLET PO SCH ×2 (08:31→21:00)
[2020-11-02] MEDS: ASCORBIC ACID 500 MG TABLET PO SCH (08:31)
[2020-11-02] MEDS: MULTIVITAMIN W/MINERALS TABLET PO SCH (08:31)
[2020-11-02] MEDS: LACTOBACILLUS RHAMNOSUS GG CAPSULE PO SCH (08:31)
[2020-11-02] MEDS: LOSARTAN 50 MG TABLET PO SCH (08:31)
[2020-11-02] MEDS: ZINC SULFATE 220 MG CAPSULE PO SCH (08:31)
[2020-11-02] MEDS: ENOXAPARIN 40 MG/0.4 ML SYRINGE SUBQ SCH (08:31)
[2020-11-02] MEDS: NICOTINE 21 MG PATCH TOP SCH (08:32)
--- NOTE | 2020-11-02 12:13 | PHARMACY PROGRESS NOTE ---
- Therapy Status Basis for treatment: Culture result Treatment indication: Wound infection, SSTI Trough goal: 15 Concurrent antibiotics: Levofloxacin 750 mg daily - HEENA Risk Risk level for Acute Kidney Injury: Low - Monitoring and Recommendation Clinical response to treatment: I&O Previous 24 hours 10/31/20 11/01/20 11/02/20 23:59 23:59 23:59 Intake Total 2670.00 2430 1550 Output Total 3375 1735 550 Balance -705.00 695 1000 Lab Results 11/01/20 10/31/20 10/30/20 05:55 06:15 05:06 BUN 13 6 8 Creatinine 0.7 0.8 0.6 Estimated GFR (MDRD) 116 100 139 10/29/20 21:26 BUN 9 Creatinine 0.6 Estimated GFR (MDRD) 139 Vancomycin Monitoring 11/01/20 11:45 Vancomycin Trough 19.3 Cultures 10/30/20 09:55 Other - Wound Body Fluid Culture - Final Beta Hemolytic Strep Group B Pseudomonas Aeruginosa Enterococcus Faecalis. Methicillin Resist S. Aureus 10/30/20 09:55 Thigh - Right Wound Culture - Final Beta Hemolytic Strep Group B Pseudomonas Aeruginosa Enterococcus Faecalis. Methicillin Resist S. Aureus 10/30/20 09:55 Thigh - Right Wound Culture - Final Beta Hemolytic Strep Group B Pseudomonas Aeruginosa Methicillin Resist S. Aureus Enterococcus Faecalis. 10/29/20 22:13 Thigh - Right Wound Culture - Final Beta Hemolytic Strep Group B Staphylococcus Aureus Pseudomonas Aeruginosa Enterococcus Faecalis. 10/29/20 21:35 Blood Blood Culture - Preliminary NO GROWTH AFTER 2 DAYS 10/29/20 21:26 Blood - Left Arm Blood Culture - Preliminary NO GROWTH AFTER 2 DAYS Monitoring plan: Daily serum creatinine Next trough due (date/time): 11/03 at 1130 Areas for additional monitoring: IV to PO when appropriate, Therapy de- escalation based on culture results Pharmacy recommendation: Decrease dose (Downs trough closer to 15 mcg/mL for SSTI. Decrease maintenance dose to vancomycin 1 gm IV q12h for estimated trough ~15 mcg/mL.)
[2020-11-02] MEDS: VANCOMYCIN INJ 1 GM in SODIUM CHLORIDE 0.9% 250 ML IV SCH (12:29)
[2020-11-02] MEDS: levoFLOXacin 250 MG TABLET PO SCH (12:29)
--- NOTE | 2020-11-02 13:02 | PROVIDER PROGRESS NOTE ---
Assessment/Plan - Problem List (1) Amputation stump necrosis Assessment/Plan: (1) Amputation stump necrosis Assessment/Plan: s/p debridement on 10/30/[address] Camarena of general surgery. Damp to dry Kurlex dressing on Wound cultures grew beta-hemolytic strep group B, Pseudomonas aeruginosa, staph aureus and Enterococcus species. Patient is on vancomycin and cefepime. General surgery recommended follow-up with [facility] wound care center. Our [facility] RN is arranging the outpt management which needs to start the day after Dch. Will stop the Cefepime and start oral Levaquin, which all the bacteria are sens to. Await the Staph species sens (see #2). (2) MRSA infection Assessment/Plan: Today the final cultures were reported and 3 of 3 are growing MRSA. He had already been on contact precautions in case the Staph species was MRSA Will continue Vancomycin iv. Will order a PICC line for insertion and contact Anesthesia for this. Will determine where the following days of iv Vanco should be given, with help of our [facility] RN. Will determine duration of treatment for MRSA in wound. Patient was told the new plan. He wishes for home iv infusions. (3) PAD (peripheral artery disease) Assessment/Plan: Currently has bilateral [id number] amputations. We will resume patient's aspirin and Plavix upon discharge. (4) COPD without exacerbation Assessment/Plan: Albuterol as needed (5) HTN (hypertension) Qualifiers: Hypertension type: primary hypertension Qualified Code(s): I10 - Essential (primary) hypertension Assessment/Plan: Stable. On carvedilol 12.5 mg p.o. twice daily, losartan 50 mg p.o. daily. (6) Pancreatic mass Assessment/Plan: Patient declined work-up in the past. He may continue to follow-up on an outpatient basis for this. (7) Tobacco abuse disorder Assessment/Plan: Patient continues to smoke 1 pack of cigarettes a day despite his peripheral vascular disease. Nicotine patch ordered. - Current Meds Current Meds: Current Medications Generic Name Dose Route Start Last Admin Trade Name Freq PRN Reason Stop Dose Admin Ascorbic Acid 500 mg 10/31/20 13:00 11/02/20 08:31 Ascorbic Acid 500 Mg Tablet PO 500 mg DAILY ASH Administration Carvedilol 12.5 mg 10/31/20 09:00 11/02/20 08:31 Carvedilol 12.5 Mg Tablet PO 12.5 mg BID ASH Administration Diphenhydramine HCl 25 mg 10/30/20 15:46 11/01/20 18:54 Diphenhydramine 25 Mg Capsule PO 25 mg QPM PRN Administration Insomnia Enoxaparin Sodium 40 mg 10/30/20 13:00 11/02/20 08:31 Enoxaparin 40 Mg/0.4 Ml Syringe SUBQ 40 mg DAILY ASH Administration Vancomycin HCl 1 gm/ Sodium 250 mls @ 167 mls/hr 11/02/20 12:00 11/02/20 12:29 Chloride IV 167 mls/hr Q12H ASH Administration Lactobacillus Rhamnosus 1 cap 10/31/20 13:00 11/02/20 08:31 Lactobacillus Rhamnosus Gg Capsule PO 1 cap DAILY ASH Administration Levofloxacin 750 mg 11/02/20 12:00 11/02/20 12:29 Levofloxacin 250 Mg Tablet PO 750 mg DAILY ASH Administration Losartan Potassium 50 mg 10/30/20 16:01 11/02/20 08:31 Losartan 50 Mg Tablet PO 50 mg DAILY ASH Administration Multivitamins/Minerals 1 tab 10/31/20 13:00 11/02/20 08:31 Multivitamin W/Minerals Tablet PO 1 tab DAILYWM ASH Administration Nicotine 1 patch 10/31/20 09:00 11/02/20 08:32 Nicotine 21 Mg Patch TOP Not Given DAILY ASH Oxycodone HCl 5 mg 10/29/20 22:13 11/01/20 16:21 Oxycodone 5 Mg Tablet PO 5 mg Q4HR PRN Administration Pain 5 to 7 Sodium Chloride 10 ml 10/29/20 22:13 11/01/20 13:32 Sodium Chloride Flush 0.9% 10 Ml Syringe IVP 10 ml PRN PRN Administration NEEDED PER PROVIDER ORDERS Sodium Chloride 10 ml 10/30/20 01:00 11/02/20 08:31 Sodium Chloride Flush 0.9% 10 Ml Syringe IVP 10 ml 0100,0900,1700 ASH Administration Zinc Sulfate 220 mg 10/31/20 13:00 11/02/20 08:31 Zinc Sulfate 220 Mg Capsule PO 11/04/20 14:00 220 mg DAILY ASH Administration - Lab Result Fish Bone Diagrams: 11/01/20 05:55 11/01/20 05:55 - Additional Planning My Orders: My Active Orders 11/02/20 11:49 PICC Line Care [RC] Q4H PICC Line Insert [RC] .ONCE 11/02/20 12:00 Vancomycin Inj [Vancomycin] 1 gm Sodium Chloride 0.9% [Normal Saline 0.9%] 250 ml IV Q12H levoFLOXacin [Levaquin] 750 mg PO DAILY 11/03/20 11:30 VANCOMYCIN TROUGH [CHEM] Timed Subjective - Subjective Patient Reports: Other (Eager to be discharged.) Objective Vital Signs: Vital Signs - 24 hr 11/01/20 11/01/20 11/02/20 16:00 23:31 08:04 Temperature 36.6 C 36.5 C 36.6 C Heart Rate [ 74 77 73 Brachial] Respiratory 16 16 16 Rate Blood Pressure 146/84 H 131/68 H 155/90 H [Right Brachial artery] O2 Saturation 98 97 99 Oxygen O2 Source Room air I&O (Last 24 Hrs): Intake and Output Totals x24h 10/31/20 11/01/20 11/02/20 23:59 23:59 23:59 Intake Total 2670.00 2430 1550 Output Total 3375 1735 550 Balance -705.00 695 1000 General: Alert, Oriented x3 HEENT: Mucous membr. moist/pink, Other (Poor dentition, yellow and brown teeth) Neck: Supple, No JVD Neuro: Alert, Non Focal Cardiovascular: Regular rate Respiratory: No respiratory distress Abdomen: Soft Extremities: Other (Bilat amputations and stumps bandaged) - Results Results: Laboratory Results WBC 6.8 x10^3/uL (4.8-10.8) 11/01/20 05:55 RBC 4.35 10^6/uL (4.70-6.10) L 11/01/20 05:55 Hgb 11.8 g/dL (14.0-18.0) L 11/01/20 05:55 Hct 37.0 % (42.0-52.0) L 11/01/20 05:55 MCV 85.1 fL (80.0-94.0) 11/01/20 05:55 MCH 27.1 pg (27.0-31.0) 11/01/20 05:55 MCHC 31.9 g/dL (32.0-36.0) L 11/01/20 05:55 RDW 15.9 % (12.0-15.0) H 11/01/20 05:55 Plt Count 277 10^3/uL (130-450) 11/01/20 05:55 MPV 9.5 fL (7.4-11.4) 11/01/20 05:55 Neut # (Auto) 3.7 10^3/uL (1.5-6.6) 11/01/20 05:55 Lymph # (Auto) 2.3 10^3/uL (1.5-3.5) 11/01/20 05:55 [place] # (Auto) 0.6 10^3/uL (0.0-1.0) 11/01/20 05:55 Eos # (Auto) 0.2 10^3/uL (0.0-0.7) 11/01/20 05:55 Baso # (Auto) 0.1 10^3/uL (0.0-0.1) 11/01/20 05:55 Absolute Nucleated RBC 0.00 x10^3/uL 11/01/20 05:55 Nucleated RBC % 0.0 /100WBC 11/01/20 05:55 Sodium 133 mmol/L (135-145) L 11/01/20 05:55 Potassium 4.0 mmol/L (3.5-5.0) 11/01/20 05:55 Chloride 98 mmol/L (101-111) L 11/01/20 05:55 Carbon Dioxide 25 mmol/L (21-32) 11/01/20 05:55 Anion Gap 10.0 (6-13) 11/01/20 05:55 BUN 13 mg/dL (6-20) 11/01/20 05:55 Creatinine 0.7 mg/dL (0.6-1.2) 11/01/20 05:55 Estimated GFR (MDRD) 116 (>89) 11/01/20 05:55 Glucose 118 mg/dL (70-100) H 11/01/20 05:55 Estimat Average Glucose 111 mg/dL (70-100) H 10/31/20 05:00 Hemoglobin A1c % 5.5 % (4.27-6.07) 10/31/20 05:00 Lactic Acid 0.6 mmol/L (0.5-2.2) 10/29/20 21:26 Calcium 8.9 mg/dL (8.5-10.3) 11/01/20 05:55 Total Bilirubin 0.5 mg/dL (0.2-1.0) 10/29/20 21:26 AST 13 IU/L (10-42) 10/29/20 21:26 ALT 14 IU/L (10-60) 10/29/20 21:26 Alkaline Phosphatase 53 IU/L (42-121) 10/29/20 21:26 C-Reactive Protein 2.0 mg/dL (0-1.0) H 11/01/20 05:55 Total Protein 7.7 g/dL (6.7-8.2) 10/29/20 21:26 Albumin 3.8 g/dL (3.2-5.5) 10/29/20 21:26 Globulin 3.9 g/dL (2.1-4.2) 10/29/20 21:26 Albumin/Globulin Ratio 1.0 (1.0-2.2) 10/29/20 21:26 Urine Color YELLOW 10/29/20 22:19 Urine Clarity CLEAR (CLEAR) 10/29/20 22:19 Urine pH 6.0 PH (5.0-7.5) 10/29/20 22:19 Ur Specific [place] 1.010 (1.002-1.030) 10/29/20 22:19 Urine Protein NEGATIVE mg/dL (NEGATIVE) 10/29/20 22:19 Urine Glucose (UA) NEGATIVE mg/dL (NEGATIVE) 10/29/20 22:19 Urine Ketones NEGATIVE mg/dL (NEGATIVE) 10/29/20 22:19 Urine Occult Blood NEGATIVE (NEGATIVE) 10/29/20 22:19 Urine Nitrite NEGATIVE (NEGATIVE) 10/29/20 22:19 Urine Bilirubin NEGATIVE (NEGATIVE) 10/29/20 22:19 Urine Urobilinogen 0.2 (NORMAL) E.U./dL (NORMAL) 10/29/20 22:19 Ur Leukocyte Esterase NEGATIVE (NEGATIVE) 10/29/20 22:19 Urine RBC 0-5 /HPF (0-5) 10/29/20 22:19 Urine WBC 0-3 /HPF (0-3) 10/29/20 22:19 Ur Squamous Epith Cells RARE Squamous (<= Few) 10/29/20 22:19 Urine Bacteria None Seen /HPF (None Seen) 10/29/20 22:19 Urine Culture Comments NOT INDICATED 10/29/20 22:19 Nasal Adenovirus (PCR) NOT DETECTED 10/29/20 22:19 Nasal B. parapertussis DNA (PCR) NOT DETECTED 10/29/20 22:19 Nasal Coronavir 229E PCR NOT DETECTED 10/29/20 22:19 Nasal Coronavir HKU1 PCR NOT DETECTED 10/29/20 22:19 Nasal Coronavir NL63 PCR NOT DETECTED 10/29/20 22:19 Nasal Coronavir OC43 PCR NOT DETECTED 10/29/20 22:19 Nasal Enterovir/Rhinovir PCR NOT DETECTED 10/29/20 22:19 Nasal Influenza B PCR NOT DETECTED 10/29/20 22:19 Nasal Influenza A PCR NOT DETECTED 10/29/20 22:19 Nasal Parainfluen 1 PCR NOT DETECTED 10/29/20 22:19 Nasal Parainfluen 2 PCR NOT DETECTED 10/29/20 22:19 Nasal Parainfluen 3 PCR NOT DETECTED 10/29/20 22:19 Nasal Parainfluen 4 PCR NOT DETECTED 10/29/20 22:19 Nasal RSV (PCR) NOT DETECTED 10/29/20 22:19 Nasal B.pertussis DNA PCR NOT DETECTED 10/29/20 22:19 Nasal C.pneumoniae (PCR) NOT DETECTED 10/29/20 22:19 Jhonny Human Metapneumo PCR NOT DETECTED 10/29/20 22:19 Nasal M.pneumoniae (PCR) NOT DETECTED 10/29/20 22:19 Nasal SARS-CoV-2 (PCR) NOT DETECTED 10/29/20 22:19 Last Dose Date 11/01/20 11/01/20 11:45 Last Dose Time 0152 11/01/20 11:45 Vancomycin Trough 19.3 ug/mL (10.0-20.0) 11/01/20 11:45 - Procedures Procedures: Procedures DETACHMENT AT RIGHT UPPER LEG, LOW, OPEN APPROACH (09/01/20) EXCISION OF L UP LEG SUBCU/FASCIA, OPEN APPROACH (09/01/20)
[2020-11-02] MEDS: oxyCODONE 5 MG TABLET PO PRN ×2 (13:23→18:17)
--- NOTE | 2020-11-02 15:53 | XRAY Report ---
PROCEDURE: Chest for Line Placement INDICATIONS: PICC Line placement TECHNIQUE: One view of the chest was acquired. COMPARISON: None FINDINGS: Surgical changes and devices: Right-sided PICC line is present distal tip projecting over the proxima l SVC. Lungs and pleura: No pleural effusions or pneumothorax. Lungs are clear. Mediastinum: Mediastinal contours appear normal. Heart size is normal. Bones and chest wall: No suspicious bony lesions. Overlying soft tissues appear unremarkable. IMPRESSION: Right PICC line as above. Reviewed by: Indiana Gaffney MD on 11/02/2020 3:51 PM PDT Approved by: Indiana Gaffney MD on 11/02/2020 3:51 PM PDT Station ID: [id number]
--- NOTE | 2020-11-02 16:13 | ANESTHESIA PROCEDURE NOTE ---
Anesth Central Line Template - Central Line Central Line Preparation: Consent Obtained Central line location: Right Basilic Central line type: PICC Single Lumen Central line catheter tip site resides: Superior vena cava (SVC) Central line aftercare: Secured, Placement confirmed, No pneumothorax, No complications, Bundle checklist complete, Pt tolerated well
--- NOTE | 2020-11-02 17:18 | Discharge Plan ---
Discharge Plan Problem Reviewed?: Yes Disposition: Home, Self Care Condition: Fair Prescriptions: Vancomycin Inj [Vancomycin] 1 gm IV Q12H #14 vial No Smoking: If you smoke, Please STOP! Call for help.
[2020-11-03] MEDS: VANCOMYCIN INJ 1 GM in SODIUM CHLORIDE 0.9% 250 ML IV SCH ×2 (00:07→12:44)
[2020-11-03] MEDS: SODIUM CHLORIDE FLUSH 0.9% 10 ML SYRINGE IVP SCH ×2 (00:08→08:31)
[2020-11-03] MEDS: MULTIVITAMIN W/MINERALS TABLET PO SCH (08:28)
[2020-11-03] MEDS: ASCORBIC ACID 500 MG TABLET PO SCH (08:29)
[2020-11-03] MEDS: levoFLOXacin 250 MG TABLET PO SCH (08:29)
[2020-11-03] MEDS: LOSARTAN 50 MG TABLET PO SCH (08:29)
[2020-11-03] MEDS: ENOXAPARIN 40 MG/0.4 ML SYRINGE SUBQ SCH (08:30)
[2020-11-03] MEDS: LACTOBACILLUS RHAMNOSUS GG CAPSULE PO SCH (08:30)
[2020-11-03] MEDS: carvediloL 12.5 MG TABLET PO SCH (08:30)
[2020-11-03] MEDS: ZINC SULFATE 220 MG CAPSULE PO SCH (08:30)
[2020-11-03] MEDS: NICOTINE 21 MG PATCH TOP SCH (08:31)
--- NOTE | 2020-11-03 11:04 | WOUND CARE CONSULTATION ---
Referring Provider Name of Referring Provider:: Ezio Consult Date: 11/03/20 Chief Complaint - Chief Complaint Chief Complaint: Wounds bilateral lower extremities History of Present Illness - History Obtained From Records Reviewed: yes History obtained from: chart - History of Present Illness HPI: 55 yo male had left AKA amputation 20 years ago and has had recent Right AKA amputation elsewhere which became infected and was opened and debrided in the OR here last week. Cultuires have grown Pseudomonas, Enterococcus and MRSA. The left above knee stump also has a superficial ulceration. Patient is currently an inpatient on IV Vanco. History - Past Medical History Cardiovascular: reports: Hypertension, High cholesterol, Peripheral Vascular Disease, Other Respiratory: reports: Sleep apnea Neuro: reports: Head injury, Headaches, Peripheral neuropathy Endocrine/Autoimmune: reports: Other GI: reports: Pancreatitis, Other : reports: None HEENT: reports: Chronic vision loss Psych: reports: Depression Musculoskeletal: reports: Chronic back pain Derm: reports: None MRSA Hx?: Yes - Past Surgical History Ortho: reports: Amputation Cardiovascular: reports: Angioplasty HEENT: reports: Cataracts, Other - Family & Social History Family History Comment/Other: Mother: HTN, CVA in 70s. Father: healthy. Half siblings: one sister w kidney stones. Daughter w spina bifida and one lung. Smoker, substance abuser?, had pneumonia and refused trach. Left AMA and at home. Son is healthy and lives in [facility] Living arrangement: At home Living Situation: With spouse/s.o. Social History Notes: hx of tobacco and alcohol use disorders, currently abstinent. Started smoking in 1977 and smoked 1 pack/day. Quit 03/2020. 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 On disability since leaving the [place] 1995. and lives in [place]. Had 2 children but daughter last year and now has 13 yr old granddaughter living with them - Substance History Use: Uses substance without health or social issues: Tobacco, Cannabis Use Issues: Other (severe PVD) Dependence: Experiences withdrawal or developed tolerances: NONE - POLST Patient has POLST: No POLST Status: Full Code Objective General: Alert, Oriented x3 - Wound Assessment Right above knee amputation stump open, devascularized tissue in patches in wound. Left above knee amputation stump has medial superficial erosion. Procedure - Procedure Note After obtaining signed, informed consent, the right AKA stump was prepped with Anasept and debride sharply with 15 blade removing all nonviable tissue. 5mm curet was then used to freshen wound and edges. Wound dressed with Silver hydrofiberx 2 ropes, 1 squsre, sterile 4x4 gauze. Silver foam tape used. After changing gloves and equipment, the left AKA stump was then debrided with 3mm curet, removing superficial slough. Hydrofera blue and plain foam applied over wound. Wound size: Right AKA stump: Pre-debridement 10 x 4.7 x 5.8 cm Post debridement 10 x 4.8 x 5.8 cm Left AKA stump medial aspect: Pre-debridement: 6.7 x 2.7 x 0.1 cm Post debridement: 6.8 x 2.7 x o.2 cm Conclusion and Plan - Results Lab Results: Laboratory Results Sodium 133 mmol/L (135-145) L 11/01/20 05:55 Potassium 4.0 mmol/L (3.5-5.0) 11/01/20 05:55 Chloride 98 mmol/L (101-111) L 11/01/20 05:55 Carbon Dioxide 25 mmol/L (21-32) 11/01/20 05:55 Anion Gap 10.0 (6-13) 11/01/20 05:55 BUN 13 mg/dL (6-20) 11/01/20 05:55 Creatinine 0.7 mg/dL (0.6-1.2) 11/01/20 05:55 Glucose 118 mg/dL (70-100) H 11/01/20 05:55 Hemoglobin A1c % 5.5 % (4.27-6.07) 10/31/20 05:00 Calcium 8.9 mg/dL (8.5-10.3) 11/01/20 05:55 Total Bilirubin 0.5 mg/dL (0.2-1.0) 10/29/20 21:26 AST 13 IU/L (10-42) 10/29/20 21:26 ALT 14 IU/L (10-60) 10/29/20 21:26 Alkaline Phosphatase 53 IU/L (42-121) 10/29/20 21:26 Total Protein 7.7 g/dL (6.7-8.2) 10/29/20 21:26 Albumin 3.8 g/dL (3.2-5.5) 10/29/20 21:26 Globulin 3.9 g/dL (2.1-4.2) 10/29/20 21:26 Albumin/Globulin Ratio 1.0 (1.0-2.2) 10/29/20 21:26 10/30/20 09:55 Other - Wound Body Fluid Culture - Final Beta Hemolytic Strep Group B Pseudomonas Aeruginosa Enterococcus Faecalis. Methicillin Resist S. Aureus 10/30/20 09:55 Thigh - Right Wound Culture - Final Beta Hemolytic Strep Group B Pseudomonas Aeruginosa Enterococcus Faecalis. Methicillin Resist S. Aureus 10/30/20 09:55 Thigh - Right Wound Culture - Final Beta Hemolytic Strep Group B Pseudomonas Aeruginosa Methicillin Resist S. Aureus Enterococcus Faecalis. 10/29/20 22:13 Thigh - Right Wound Culture - Final Beta Hemolytic Strep Group B Staphylococcus Aureus Pseudomonas Aeruginosa Enterococcus Faecalis. 10/29/20 21:35 Blood Blood Culture - Preliminary NO GROWTH AFTER 2 DAYS 10/29/20 21:26 Blood - Left Arm Blood Culture - Preliminary NO GROWTH AFTER 2 DAYS - Home Meds/Allergies Allergies No Known Drug Allergies Allergy (Verified 10/29/20 20:36) Home Medications Clopidogrel [Plavix] 75 mg PO DAILY 10/29/20 [History Confirmed 10/30/20] - Plan Condition/Complexity: Critical Plan Discussed with: Patient, Other (Hospitalist Dr Holguin) Plan: Patient's wounds dressed with hydrofera blue, plain foam to left stump, Silver hydrofiber to dehisced right AKA stump, 4x4s, silver foam tape. Continue Vancomycin as discussed with Dr Holguin. VAC should be placed RICARDO to right AKA stump. Follow up here next Saturday.
[2020-11-03 11:45] LABS: VANCOMYCIN,TROUGH 15.8 ug/mL (10.0-20.0)
--- NOTE | 2020-11-03 13:21 | Discharge Plan ---
Discharge Plan Problem Reviewed?: Yes Disposition: Home, Self Care Condition: Fair Prescriptions: Lactobacillus Rhamnosus GG [Culturelle] 1 cap PO DAILY #7 cap levoFLOXacin [Levaquin] 750 mg PO DAILY 6 Days #18 tablet Oxycodone HCl/Acetaminophen [Oxycodone-Acetaminophn 7.5-325] 1 each PO DAILY PRN #5 tablet PRN Reason: Severe Pain Vancomycin Inj [Vancomycin] 1 gm IV Q12H #14 vial Diet: Regular Activity Restrictions: Activity as Tolerated Assistance Devices: Wheelchair Instruction Topics: MRSA Infec Health Concerns: You were hospitalized because of wounds of your amputated leg. You underwent debridement of both amputated extremities and received iv antibiotics. You are being discharged to take several more days of oral Levaquin antibiotic and to receive 1 more week of IV vancomycin antibiotic via PICC line at home with [facility]. Resume all your other pre-hospital medications. The new Levaquin, a probiotic and oxycodone if needed for pain, were electronically prescribed to your [facility] pharmacy. There are plans to have you seen by the orthopedist, Dr. Liu on November 08 at 10:15 AM in orthopedic clinic. Also an appointment to [facility] wound care clinic on November 08 at 2 PM. A wound Vac placement is the plan. Plan of Treatment: As above. Care Goals: Improvement in symptoms and stabilization are the goals. Assessment: The patient understands the plan. Additional Instructions or Follow Up instructions: If you have new or worsening symptoms, call your PCP for advice or come to the ER. Follow-Up Care: [facility] Clinic - Wound/Ostomy No Smoking: If you smoke, Please STOP! Call for help. Follow-up with: Andrew Liu MD [Provider Admit Priv/Credential] - Feng Worthy MD [Provider Admit Priv/Credential] -
--- NOTE | 2020-11-03 14:02 | DISCHARGE SUMMARY ---
Discharge Summary Admit Date: 10/29/20 Discharge Date: 11/03/20 Discharging Provider: Dr Zoila Holguin Primary Care Provider: Dr Worthy Code Status: Attempt Resuscitation Condition at Discharge: Fair Discharge Disposition: 01 Home, Self Care - HPI History of Present Illness: From the admission H&P of Dr Beverly Hayes: This 55 y/o white gentleman was admitted September 01, 2020 for a gangrenous right leg after being seen in the medical ambulatory clinic for wound debridement. He had chronic lymphedema of the legs starting in 2009 complicated by venous stasis and chronic leg ulcers. In 2009 he dropped a refrigerator on his foot and had a foot wound infection. [place] [facility] between 2009 and 2018. He returned March 12, 2019 with a painful, swollen left ryder/calf of 2 weeks duration. He had already been seen at [facility] with an admission and discharged by March 09 after being admitted February 26. With that admission he had struck his ryder on a piece of furniture and developed large blisters with redness and pain. The foot was gangrenous. Cultures were positive for MSSA and Enterococcus faecalis. He had severe peripheral vascular disease and had femoral stents placed March 10, 2019. During that stay he was found to have a history of pancreatitis due to alcohol abuse. One of the CT showed him to have a pancreatic mass at the same time they were trying to take care of that infected leg. His primary care provider was trying to access care through the [facility] but it required multiple authorizations and conversation between [facility] and the [place] system that were unsuccessful. 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 Discharge Febr uary 3. On antibiotics for 13 days. Was discharged on Augmentin and a wound VAC. 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 Continued on antibiotics that were stopped May 14. Switch to oral antibiotics which were stopped May 20. The stump had not healed, unable to be fitted for an orthotic due to inability to get transportation and appointment issues. Somewhere in May 2020, he hit his right ryder against a box when he was using his wheelchair to turn around in the room. He then developed a persistent right ryder wound. Again could not get an appointment because he could not access the schedulers. In the meantime he was seen by vascular surgery at [place], who recommended a right AKA. He did not want to have the right AKA and came to our wound clinic August 25. Ischemic ulcer was debrided, and he was to return. He returned to the clinic on September 01, 2020 where he had markedly worse infection so he sent to the emergency room and then admitted by us. He was put on vancomycin and Ancef for 5 days and then underwent a right AKA with orthopedics and general surgery. At discharge his left stump wound was also seen. Dr. Sami Sun advised Hydrofiber bandage and foam dressing externally to both stumps to be changed weekly. The patient declines further work-up for his pancreatic mass. CA 19-9 is within normal limits. During his stay he had iron deficiency anemia with a hemoglobin that dropped to 7.1. This was attributed to acute blood loss anemia superimposed on chronic anemia. Hemoglobin at discharge was 7.6. He was still a current smoker and he was advised to stop smoking in an effort to help some of his peripheral vascular disease. Discharge was September 08 to a SNF in [place]. He states that they rammed his right stump into a wall by accident and the folded skin over the stump was traumatized and began to split open. While there he was seen by Psychiatry since he was not "adjusting to institutional living" very well (his words). Since the trauma to the right stump, infection has set in. He has been home about 2 weeks. Gets one shower a week because it's too hard, so the rest of the time it's a sponge bath. No dressings have been in place. He states the left stump has never healed and also has an eschar. He has seen Dr. Liu of Ortho once in followup. But when the right stump starting draining yellow fluid he decided to come to the ER. He now returns with purulent drainage from the right stump. He denies fever, chills. Does have some pain. He was seen by Dr. Haile, ED provider, and temperature was 36.7. Heart rate 87. Respirations 19. Blood pressure 188/100. During his stay in the ER his blood pressure was 157/90. Oxygen saturation 100% on room air. Dr. Haile felt that the distal stump had eschar plus quite a bit of purulence and probable infection underneath the eschar. She consulted with General Surgery. General Surgery would like the patient admitted to Hospitalist service and Surgery will consult and plans on doing surgery tomorrow morning. On lab review he has chronic hyponatremia. (He does have a previous history of alcohol abuse but that has not been present for years). He denies any history of cirrhosis. White cell count is normal. Hemoglobin is 12.5. Platelets are 326. The emergency room physician has cultured his stump wound. The patient denies chest pain, shortness of breath, palpitations, jaw pain, diaphoresis. He is a current smoker and denies any emphysema symptoms. He was not smoking during his stay in the SNF but resumed 1 ppd while home. He has an occasional cough, occasionally productive of white phlegm. - HOSPITAL COURSE Hospital Course: (1) Amputation stump necrosis He had debridement of the purulent wound on 10/30/[address] Camarena of General Surgery. Damp to dry Kerlex dressing were ordered. His wound cultures grew beta-hemolytic Strep group B, Pseudomonas aeruginosa, Staph aureus and Enterococcus species. He had been on iv vancomycin and iv cefepime. We stopped the Cefepime and started oral Levaquin, which all the other (non-Staph) bacteria were sensitive to. He received a PICC line and iv Vanco was also arranged. He had debridement again in [facility] on 11/03/[address] Marrufo of General Surgery, who agreed with another week of iv Vanco, or until he gets a wound vac. Home iv infusions were arranged b.i.d. General surgery recommended a wound vac, and further follow-up with [facility] wound care center and Ortho. (2) MRSA infection The final cultures were reported and 3 of 3 were growing MRSA. He had already been ordered on contact precautions, in case the Staph species was MRSA. We continued Vancomycin iv. We ordered a PICC line for insertion and contacted Anesthesia for this. Dr Marrufo, General Surgery, agreed with another week of iv Vanco, or until he gets a wound vac. Home iv infusions of Vanco b.i.d. were approved to be done with the [employer]. (3) PAD (peripheral artery disease) Currently he has bilateral [id number] amputations. We ordered resumption of the patient's aspirin and Plavix upon discharge. (4) COPD without exacerbation Albuterol as needed was ordered. (5) HTN (hypertension) Stable. We continued his carvedilol 12.5 mg p.o. twice daily, losartan 50 mg p.o. daily. (6) Pancreatic mass Patient declined work-up in the past. He can continue to follow-up on an outpa tient basis for this. (7) Tobacco abuse disorder Patient continues to smoke 1 pack of cigarettes a day despite his peripheral vascular disease. Nicotine patch ordered to use here. - ALLERGIES Allergies/Adverse Reactions: Allergies Allergy/AdvReac Type Severity Reaction Status Date / Time No Known Drug Allergies Allergy Verified 10/29/20 20:36 - MEDICATIONS Home Medications: Ambulatory Orders Medication Instructions Recorded Confirmed Losartan Potassium [Cozaar] 1 tablet PO DAILY 08/25/20 10/29/20 cilostazoL [Cilostazol] 50 mg PO BID 08/25/20 10/29/20 Aspirin [[place] Aspirin] 81 mg PO DAILY 09/01/20 10/29/20 Carvedilol [Coreg] 12.5 mg PO BID 09/01/20 10/29/20 Clopidogrel [Plavix] 75 mg PO DAILY 10/29/20 10/30/20 Vancomycin Inj [Vancomycin] 1 gm IV Q12H #14 vial 11/02/20 Lactobacillus Rhamnosus GG 1 cap PO DAILY #7 cap 11/03/20 [Culturelle] Oxycodone HCl/Acetaminophen 1 each PO DAILY PRN #5 tablet 11/03/20 [Oxycodone-Acetaminophn 7.5-325] levoFLOXacin [Levaquin] 750 mg PO DAILY 6 Days #18 tablet 11/03/20 - PHYSICAL EXAM AT DISCHARGE General Appearance: positive: No acute distress, Alert Eyes Bilateral: positive: Normal inspection, EOMI ENT: positive: ENT inspection nml, No signs of dehydration, Other (Poor dentition) Neck: positive: Nml inspection, No JVD Respiratory: positive: No respiratory distress, Breath sounds nml Cardiovascular: positive: Regular rate & rhythm, No murmur Abdomen: positive: Non-tender, Nml bowel sounds, No distention Skin: positive: Warm, Dry Extremities: positive: Other (Bilateral AKAs, and both stumps bandaged) Neurologic/Psychiatric: positive: Oriented x3 (Non-focal grossly) - LABS Result Diagrams: 11/01/20 05:55 11/01/20 05:55 - FOLLOW UP Follow Up: Infusions of iv Vanco twice a day at home for 7 days. See PCP for follow-up after that. - TIME SPENT Time Spent in Discharge (Minutes): 50
[2020-11-03 17:31] VITALS: BP 110/69
== END 2020-11-03 15:59 | disposition home or self-care (01) | DRG 464 ==
LOC: ED 20:24 → MS2 22:13
PROVIDERS: ADMIT Specialist; ATTEND Internal Medicine
PROC: 0JBL0ZZ Excision of Right Upper Leg Subcutaneous Tissue and Fascia, Open Approach (ICD-10-PCS; principal; 2020-10-30 09:00)
PROC: 02HV33Z Insertion of Infusion Device into Superior Vena Cava, Percutaneous Approach (ICD-10-PCS; 2020-11-02)
PROC: 0HBJXZZ Excision of Left Upper Leg Skin, External Approach (ICD-10-PCS; 2020-11-03)
PROC: 0HBHXZZ Excision of Right Upper Leg Skin, External Approach (ICD-10-PCS; 2020-11-03)
DX: T87.53 Necrosis of amputation stump, right lower extremity (principal); E87.1 Hypo-osmolality and hyponatremia; T87.43 Infection of amputation stump, right lower extremity; T87.44 Infection of amputation stump, left lower extremity; I73.9 Peripheral vascular disease, unspecified; I10 Essential (primary) hypertension; E78.00 Pure hypercholesterolemia, unspecified; Z20.822 Contact with and (suspected) exposure to COVID-19; G62.9 Polyneuropathy, unspecified; F17.210 Nicotine dependence, cigarettes, uncomplicated; B95.62 Methicillin resistant Staphylococcus aureus infection as the cause of diseases classified elsewhere; J44.9 Chronic obstructive pulmonary disease, unspecified; Z89.612 Acquired absence of left leg above knee; Z89.611 Acquired absence of right leg above knee; K86.9 Disease of pancreas, unspecified
CPT/HCPCS: 0202U; 36415; 71045; 73560; 80048; 80053; 80202; 81001; 83036; 83605; 85025; 86140; 87040; 87070; 87077; 87181; 87205; 99283; 99285; A9270; C1751; J1650; J3370; J7120; 87075; 87086

== ENCOUNTER 2021-03-31 08:00 | Outpatient (CLI) | payer MEDICAID ==
[2021-03-31 17:48] LABS: BASOPHILS # (AUTO) 0.1 10^3/uL (0.0-0.1); BASOPHILS % (AUTO) 0.9 %; EOSINOPHILS # (AUTO) 0.2 10^3/uL (0.0-0.7); EOSINOPHILS % (AUTO) 2.3 %; HCT - HEMATOCRIT 41.6 % (42.0-52.0); HGB - HEMOGLOBIN 13.7 g/dL (14.0-18.0); LYMPHOCYTES # (AUTO) 1.9 10^3/uL (1.5-3.5); LYMPHOCYTES % (AUTO) 29.9 %; MEAN CORPUSCULAR HEMOGLOBIN 28.7 pg (27.0-31.0); MEAN CORPUSCULAR HGB CONC 32.9 g/dL (32.0-36.0); MEAN CORPUSCULAR VOLUME 87.2 fL (80.0-94.0); MEAN PLATELET VOLUME 10.5 fL (7.4-11.4); MONOCYTES # (AUTO) 0.5 10^3/uL (0.0-1.0); MONOCYTES % (AUTO) 7.2 %; NEUTROPHILS # (AUTO) 3.8 10^3/uL (1.5-6.6); NEUTROPHILS % (AUTO) 59.4 %; PLT - PLATELET COUNT 210 10^3/uL (130-450); RED BLOOD COUNT 4.77 10^6/uL (4.70-6.10); RED CELL DISTRIBUTION WIDTH 14.6 % (12.0-15.0); WHITE BLOOD COUNT 6.4 x10^3/uL (4.8-10.8)
[2021-03-31 18:18] LABS: ALBUMIN 3.8 g/dL (3.2-5.5); ALBUMIN/GLOBULIN RATIO 1.1 (1.0-2.2); ALKALINE PHOSPHATASE 42 IU/L (42-121); ALT ALANINE AMINOTRANSFERASE 13 IU/L (10-60); AST ASPARTATE AMINOTRANSFERASE 14 IU/L (10-42); BILIRUBIN,TOTAL 0.4 mg/dL (0.2-1.0); BUN - BLOOD UREA NITROGEN 8 mg/dL (6-20); CALCIUM 9.1 mg/dL (8.5-10.3); CARBON DIOXIDE - CO2 23 mmol/L (21-32); CHLORIDE 98 mmol/L (101-111); CHOL/HDL RATIO 3.4 (<5.0); CHOLESTEROL 132 mg/dL; CREATININE 0.7 mg/dL (0.6-1.2); GFR - MDRD 116 (>89); GLUCOSE 147 mg/dL (70-100); HDL CHOLESTEROL 39 mg/dL; LDL CHOLESTEROL,CALCULATED 80 mg/dL; LDL/HDL RATIO 2.1 (<3.6); POTASSIUM 4.2 mmol/L (3.5-5.0); SODIUM 129 mmol/L (135-145); TOTAL PROTEIN 7.3 g/dL (6.7-8.2); TRIGLYCERIDES 65 mg/dL; VLDL CHOLESTEROL 13 mg/dL
[2021-03-31 18:28] LABS: THYROID STIMULATING HORMONE 1.32 uIU/mL (0.34-5.60)
[2021-03-31 20:08] LABS: ESTIMATED AVERAGE GLUCOSE 137 mg/dL (70-100); HEMOGLOBIN A1c% 6.4 % (4.27-6.07)
== END 2021-03-31 23:59 | disposition home or self-care (01) ==
LOC: LAB.WCP 08:00
PROVIDERS: ATTEND Internal Medicine
DX: I10 Essential (primary) hypertension (principal); R73.01 Impaired fasting glucose; Z12.5 Encounter for screening for malignant neoplasm of prostate; F32.A Depression, unspecified
CPT/HCPCS: 36415; 80053; 80061; 82043; 82570; 83036; 83721; 84153; 84443; 85025

== ENCOUNTER 2021-04-05 08:00 | Outpatient (CLI) | payer MEDICAID ==
[2021-04-05 12:59] LABS: CREATININE,URINE 52.6 mg/dL; MICROALBUM/CREATININE RATIO,UR 47.5 ug/mg (<30.0); MICROALBUMIN,URINE 2.5 mg/dL (0-300.0)
== END 2021-04-05 23:59 ==
LOC: LAB.R 08:00
PROVIDERS: ATTEND Internal Medicine
DX: R73.01 Impaired fasting glucose (principal)
CPT/HCPCS: 82043; 82570

== ENCOUNTER 2022-03-02 11:37 | Outpatient (CLI) | payer OTHER ==
[2022-03-02 18:41] LABS: PSA FREE 0.25 ng/mL (0.16-2.81)
[2022-03-02 18:42] LABS: PSA TOTAL 2.87 ng/mL (0.000-2.000)
[2022-03-02 18:46] LABS: CALCIUM 8.8 mg/dL (8.5-10.3); CREATININE 0.9 mg/dL (0.6-1.2); POTASSIUM 4.4 mmol/L (3.5-5.0)
[2022-03-02 21:09] LABS: ESTIMATED AVERAGE GLUCOSE 137 mg/dL (70-100); HEMOGLOBIN A1c% 6.4 % (4.27-6.07)
== END 2022-03-02 11:38 | disposition home or self-care (01) ==
LOC: LAB.N 11:37
PROVIDERS: ATTEND Internal Medicine
DX: I10 Essential (primary) hypertension (principal); R73.03 Prediabetes; R97.20 Elevated prostate specific antigen [PSA]
CPT/HCPCS: 36415; 80048; 83036; 84153; 84154

== ENCOUNTER 2022-06-27 09:56 | Outpatient (CLI) | payer MEDICAID, OTHER ==
[2022-06-27 12:45] LABS: ESTIMATED AVERAGE GLUCOSE 143 mg/dL (70-100); HEMOGLOBIN A1c% 6.6 % (4.27-6.07)
[2022-06-27 13:07] LABS: CALCIUM 8.6 mg/dL (8.5-10.3); CREATININE 0.8 mg/dL (0.6-1.2); POTASSIUM 3.9 mmol/L (3.5-5.0)
== END 2022-06-27 09:57 | disposition home or self-care (01) ==
LOC: LAB.N 09:56
PROVIDERS: ATTEND Internal Medicine
DX: R73.03 Prediabetes (principal)
CPT/HCPCS: 36415; 80048; 83036

== ENCOUNTER 2022-10-18 09:03 | Outpatient (CLI) | payer OTHER, MEDICAID ==
[2022-10-18 12:24] LABS: BASOPHILS # (AUTO) 0.1 10^3/uL (0.0-0.1); BASOPHILS % (AUTO) 0.8 %; EOSINOPHILS # (AUTO) 0.2 10^3/uL (0.0-0.7); EOSINOPHILS % (AUTO) 3.2 %; HCT - HEMATOCRIT 41.4 % (42.0-52.0); HGB - HEMOGLOBIN 13.6 g/dL (14.0-18.0); LYMPHOCYTES # (AUTO) 2.1 10^3/uL (1.5-3.5); MEAN CORPUSCULAR HEMOGLOBIN 29.2 pg (27.0-31.0); MEAN CORPUSCULAR HGB CONC 32.9 g/dL (32.0-36.0); MEAN CORPUSCULAR VOLUME 88.8 fL (80.0-94.0); MEAN PLATELET VOLUME 10.2 fL (7.4-11.4); MONOCYTES # (AUTO) 0.4 10^3/uL (0.0-1.0); MONOCYTES % (AUTO) 6.6 %; NEUTROPHILS # (AUTO) 3.8 10^3/uL (1.5-6.6); NEUTROPHILS % (AUTO) 57.1 %; PLT - PLATELET COUNT 207 10^3/uL (130-450); RED BLOOD COUNT 4.66 10^6/uL (4.70-6.10); RED CELL DISTRIBUTION WIDTH 13.5 % (12.0-15.0); WHITE BLOOD COUNT 6.7 x10^3/uL (4.8-10.8)
[2022-10-18 12:59] LABS: ALBUMIN 3.7 g/dL (3.2-5.5); ALBUMIN/GLOBULIN RATIO 1.2 (1.0-2.2); ALKALINE PHOSPHATASE 47 IU/L (42-121); ALT ALANINE AMINOTRANSFERASE 10 IU/L (10-60); AST ASPARTATE AMINOTRANSFERASE 12 IU/L (10-42); BILIRUBIN,TOTAL 0.4 mg/dL (0.2-1.0); BUN - BLOOD UREA NITROGEN 5 mg/dL (6-20); CALCIUM 9.2 mg/dL (8.5-10.3); CARBON DIOXIDE - CO2 26 mmol/L (21-32); CHLORIDE 100 mmol/L (101-111); CHOL/HDL RATIO 3.6 (<5.0); CHOLESTEROL 108 mg/dL; CREATININE 0.9 mg/dL (0.6-1.3); GFR - MDRD 86 (>89); GLUCOSE 123 mg/dL (74-104); HDL CHOLESTEROL 30 mg/dL; LDL CHOLESTEROL,CALCULATED 62 mg/dL; LDL/HDL RATIO 2.1 (<3.6); POTASSIUM 4.1 mmol/L (3.5-4.5); SODIUM 131 mmol/L (135-145); TOTAL PROTEIN 6.7 g/dL (6.4-8.9); TRIGLYCERIDES 82 mg/dL (48-352); VLDL CHOLESTEROL 16 mg/dL
[2022-10-18 13:18] LABS: CREATININE,URINE 62.6 mg/dL
[2022-10-18 13:19] LABS: MICROALBUMIN,URINE < 0.7 mg/dL
[2022-10-18 13:35] LABS: ESTIMATED AVERAGE GLUCOSE 154 mg/dL (70-100)
== END 2022-10-18 09:04 | disposition home or self-care (01) ==
LOC: LAB.N 09:03
PROVIDERS: ATTEND Internal Medicine
DX: E78.5 Hyperlipidemia, unspecified (principal); R73.03 Prediabetes; I73.9 Peripheral vascular disease, unspecified
CPT/HCPCS: 36415; 80053; 80061; 82043; 82570; 83036; 83721; 85025

== ENCOUNTER 2023-01-30 09:26 | Outpatient (CLI) | payer OTHER, MEDICAID ==
[2023-01-30 12:23] LABS: BASOPHILS % (AUTO) 0.7 %; EOSINOPHILS # (AUTO) 0.2 10^3/uL (0.0-0.7); EOSINOPHILS % (AUTO) 2.7 %; HCT - HEMATOCRIT 45.9 % (42.0-52.0); HGB - HEMOGLOBIN 14.8 g/dL (14.0-18.0); LYMPHOCYTES # (AUTO) 1.6 10^3/uL (1.5-3.5); MEAN CORPUSCULAR HEMOGLOBIN 28.8 pg (27.0-31.0); MEAN CORPUSCULAR HGB CONC 32.2 g/dL (32.0-36.0); MEAN CORPUSCULAR VOLUME 89.3 fL (80.0-94.0); MEAN PLATELET VOLUME 11.4 fL (7.4-11.4); MONOCYTES # (AUTO) 0.3 10^3/uL (0.0-1.0); MONOCYTES % (AUTO) 5.9 %; NEUTROPHILS # (AUTO) 3.5 10^3/uL (1.5-6.6); NEUTROPHILS % (AUTO) 62.5 %; PLT - PLATELET COUNT 148 10^3/uL (130-450); RED BLOOD COUNT 5.14 10^6/uL (4.70-6.10); RED CELL DISTRIBUTION WIDTH 14.6 % (12.0-15.0); WHITE BLOOD COUNT 5.6 x10^3/uL (4.8-10.8)
[2023-01-30 12:31] LABS: ESTIMATED AVERAGE GLUCOSE 120 mg/dL (70-100); HEMOGLOBIN A1c% 5.8 % (4.27-6.07)
[2023-01-30 12:45] LABS: THYROID STIMULATING HORMONE 2.19 uIU/mL (0.34-5.60)
[2023-01-30 12:46] LABS: ALBUMIN 4.1 g/dL (3.2-5.5); ALBUMIN/GLOBULIN RATIO 1.4 (1.0-2.2); ALKALINE PHOSPHATASE 57 IU/L (42-121); ALT ALANINE AMINOTRANSFERASE 8 IU/L (10-60); AST ASPARTATE AMINOTRANSFERASE 11 IU/L (10-42); BILIRUBIN,TOTAL 0.4 mg/dL (0.2-1.0); BUN - BLOOD UREA NITROGEN 4 mg/dL (6-20); CALCIUM 9.2 mg/dL (8.5-10.3); CARBON DIOXIDE - CO2 28 mmol/L (21-32); CHLORIDE 99 mmol/L (101-111); CHOL/HDL RATIO 2.6 (<5.0); CHOLESTEROL 119 mg/dL; CREATININE 0.8 mg/dL (0.6-1.3); GFR - MDRD 99 (>89); GLUCOSE 111 mg/dL (74-104); HDL CHOLESTEROL 45 mg/dL; LDL CHOLESTEROL,CALCULATED 57 mg/dL; LDL/HDL RATIO 1.3 (<3.6); POTASSIUM 3.6 mmol/L (3.5-4.5); SODIUM 133 mmol/L (135-145); TOTAL PROTEIN 7.1 g/dL (6.4-8.9); TRIGLYCERIDES 84 mg/dL (48-352); VLDL CHOLESTEROL 17 mg/dL
[2023-01-30 12:51] LABS: CREATININE,URINE 46.1 mg/dL; MICROALBUM/CREATININE RATIO,UR 21.7 ug/mg (<30.0)
== END 2023-01-30 09:27 | disposition home or self-care (01) ==
LOC: LAB.N 09:26
PROVIDERS: ATTEND Internal Medicine
DX: I10 Essential (primary) hypertension (principal); E78.5 Hyperlipidemia, unspecified; E55.9 Vitamin D deficiency, unspecified; E11.59 Type 2 diabetes mellitus with other circulatory complications; Z12.5 Encounter for screening for malignant neoplasm of prostate; F32.A Depression, unspecified
CPT/HCPCS: 36415; 80053; 80061; 82043; 82306; 82570; 83036; 83721; 84153; 84443; 85025

== ENCOUNTER 2023-05-31 10:56 | Outpatient (CLI) | payer OTHER | END 2023-05-31 10:57 | disposition home or self-care (01) | LOC: LAB.N 10:56 | PROVIDERS: ATTEND Internal Medicine | DX: Z53.9 Procedure and treatment not carried out, unspecified reason (principal) ==